=== PATIENT | female | born 1960 | race Caucasian/White ===

== ENCOUNTER 2017-10-30 15:07 | Outpatient (CLI) | payer OTHER, MEDICAID, SELFPAY ==
--- NOTE | 2017-10-30 14:47 | DI.RAD_ITS ---
SYMPTOM/DIAGNOSIS: COUGH, R05 PA AND LATERAL CHEST: Comparison is made with 03/19/09. Heart size and pulmonary vasculature are within normal limits. The lungs are clear and well expanded. No effusions or pneumothoraces are identified. Mild degenerative changes are seen in the spine. The lungs appear hyperinflated suggesting underlying COPD. IMPRESSION: No acute pulmonary process.
== END 2017-10-30 15:27 ==
PROVIDERS: PCP Nurse Practitioner Family; Visit Provider Nurse Practitioner Family
DX: R05 Cough (principal); J44.9 Chronic obstructive pulmonary disease, unspecified
CPT/HCPCS: 71046

== ENCOUNTER 2017-11-13 00:24 | Outpatient (CLI) | payer OTHER, SELFPAY ==
--- NOTE | 2017-11-13 12:47 | DI.CTLCSR_ITS ---
SYMPTOM/DIAGNOSIS: TOBACCO USE, F17.[address]: Noncontrast CT scan of the chest was performed according to the lung cancer screening protocol. There is atherosclerosis of the thoracic aorta but no aneurysmal dilatation is present. Heart size is within normal limits. No significant pericardial effusion is seen. Coronary artery calcifications are identified. No significant mediastinal or hilar adenopathy is present on this noncontrast examination. No pleural effusion or pneumothorax is identified. There is scarring seen in the lungs bilaterally. No non calcified pulmonary nodules are seen. Tracheobronchial tree is unremarkable. Degenerative changes are seen in the spine. There is a compression deformity of the superior endplate of T 6. This was not apparent on the chest xray from 10/30/17. There does appear to be loss of approximately 10-15% of the height of the vertebral body noted. No central spinal canal stenosis is seen. IMPRESSION: 1. No evidence of a pulmonary nodule. Category 1. 2. Compression deformity of the T 6 vertebral body not present on the chest xray from 10/30/17. No central spinal canal stenosis is seen.
== END 2017-11-13 00:44 ==
PROVIDERS: PCP Nurse Practitioner Family; Visit Provider Nurse Practitioner Family
DX: M48.54XD Collapsed vertebra, not elsewhere classified, thoracic region, subsequent encounter for fracture with routine healing (principal); Z12.2 Encounter for screening for malignant neoplasm of respiratory organs; F17.200 Nicotine dependence, unspecified, uncomplicated
CPT/HCPCS: G0297

== ENCOUNTER 2018-01-08 10:30 | Emergency (ER) | payer OTHER, SELFPAY ==
[2018-01-08 10:33] VITALS: BP 189/99; PULSE 71; RESP 16; TEMP 36.6; O2SAT 96
--- NOTE | 2018-01-08 10:36 | W.ED.GENAD ---
Discharge Plan Disposition Patient Disposition: HOME Condition: Good Discharge Details Chief Complaint: Chest/Rib Clinical Impression: Contusion of rib on right side Primary Care Provider: Lili Oglesby ED Provider: Chu Hollingsworth Home Meds and New Rx's Prescriptions: Continue levalbuterol HCl 1.25 MG/3 ML solution for nebulization 1.25 mg Inhalation PRN PRNRF: 0 citalopram 20 MG tablet 20 mg PO DAILY RF: 0 aspirin [Aspir-81] 81 MG tablet,delayed release (DR/EC) 81 mg PO DAILY RF: 0 bupropion HCl [Wellbutrin] 100 MG tablet 100 mg PO BID RF: 0 lisinopril 10 MG tablet 10 mg PO DAILY RF: 0 kolmyadq-poa-xkeht acid-vit K [Multi For Her 50 Plus] 400-80 mcg Capsule 1 tab PO DAILY RF: 0 Discharge Instructions Instructions: Rib Contusion (ED) Additional Instructions: you can take 1000mg tylenol and 600mg ibuprofen every 6 hours for pain as needed your blood pressure today was high, this can be due to pain. You should have this rechecked with your primary care provider within 2 weeks if you have severe worsening pain or difficulty breathing return to the emergency department Discharge Data Discharge Date/Time-TO BE ENTERED AT DEPARTURE: 01/08/18 10:59 Medical Decision Making 57 yo female states this past Monday her was playing with their dog and threw a ball, and this caused the dog to run into the patient's right sided chest. HAs had some pain since so came here. Denies pain with exertion or sob. Has locazlies tenderness over 4-5th ribs in mid clavicular line with no palpable deformities, speaking in full sentences with clear lungs. Doubt ptx, suspect contusion vs fx though suspect more likely this fx. offered an xray but she declined, will have her start ibuprofen and tylenol and return precautions given. Has no abdominal tenderness so doubt entities such as liver laceration or other serious intrabdominal pathology or traumatic injury Differential Diagnosis contusion, fx HPI General Mode of arrival: ambulatory. Date/Time Provider Initiated Documentation: 01/08/18 10:36. Limitations to Documentation: no limitations. Information obtained by: patient. History of Present Illness 57 year old F presents to the emergency department with the chief complaint of right sided chest pain, described as moderate, with intensity rated at 5. Quality is described as aching, and is localized to the chest. Patient reports no radiation. Patient started experiencing this day(s) (3) and it has been constant. No relieving factors improve symptom(s), Other factors that worsen symptoms (deep breaths) . Patient notes no other symptoms.. Patient did receive the following treatments prior to arrival, none Related Data Home Medications Medication Instructions Recorded Confirmed levalbuterol HCl 1.25 mg INHALATION PRN PRN NS 08/27/12 01/08/18 citalopram 20 mg PO DAILY 09/11/12 01/08/18 aspirin [Aspir-81] 81 mg PO DAILY 11/28/14 01/08/18 bupropion HCl [Wellbutrin] 100 mg PO BID 11/28/14 01/08/18 lisinopril 10 mg PO DAILY 11/28/14 01/08/18 ednyowvb-roi-dgxgc acid-vit K 1 tab PO DAILY 01/08/18 01/08/18 [Multi For Her 50 Plus] Allergies Allergy/AdvReac Type Severity Reaction Status Date / Time erythromycin base AdvReac Unverified 01/08/18 10:36 General Stated Complaint: Chest/Rib HEATH: 4 Review of Systems Review of Systems All systems reviewed & are unremarkable except as noted in HPI and below Constitutional Denies chills, Denies fever(s) and Denies weakness ENT Denies change in voice Cardiovascular Denies dyspnea Respiratory Denies dyspnea Gastrointestinal Denies abdominal pain, Denies nausea and Denies vomiting Musculoskeletal Denies joint swelling Integumentary/Breasts Denies rash Neurologic Denies weakness Endocrine Denies cold intolerance and Denies heat intolerance [facility] Social History Smoking/Tobacco Use Status: Current every day Social History Smoking/Tobacco Use Status: Current every day Exam Const General: no acute distress Orientation: alert HENNE Head: normal to inspection Ears: external ears normal General nose exam: external nose normal Mouth: moist mucous membranes Eyes General: appearance normal, both eyes and all related structures Neck Neck: normal visual inspection Chest Chest: normal inspection of the chest, normal palpation of entire chest wall and no crepitus Resp Effort & Inspection: normal respiratory effort and able to speak in complete sentences Cardio Rate: regular rate Skin General skin exam: no rashes or lesions noted Neuro General: alert and oriented x3 Extrem General: normal to inspection Psych Mental Status: mental status grossly normal Course Vital Signs Temperature 36.6 C 01/08/18 10:33 Pulse 71 01/08/18 10:33 Respiratory Rate 16 01/08/18 10:33 Blood Pressure 189/99 H 01/08/18 10:33 Pulse Oximetry 96 01/08/18 10:33 Temperature 36.6 C 01/08/18 10:33 Temperature Source Temporal Artery Scan 01/08/18 10:33 Pulse 71 01/08/18 10:33 Respiratory Rate 16 01/08/18 10:33 Respiratory Effort Non-Labored 01/08/18 10:35 Blood Pressure 189/99 H 01/08/18 10:33 Blood Pressure Position Sitting 01/08/18 10:33 Pulse Oximetry 96 01/08/18 10:33 Oxygen Delivery Method Room Air 01/08/18 10:33 Oxygen Flow Rate 0 01/08/18 10:33 Pain Level 8 01/08/18 10:33
--- NOTE | 2018-01-08 10:47 | ED.GENADUL_ITS ---
Discharge Plan Disposition Patient Disposition: HOME Condition: Good Discharge Details Chief Complaint: Chest/Rib Clinical Impression: Contusion of rib on right side Primary Care Provider: Lili Oglesby ED Provider: Chu Hollingsworth Home Meds and New Rx's Prescriptions: Continue levalbuterol HCl 1.25 MG/3 ML solution for nebulization 1.25 mg Inhalation PRN PRNRF: 0 citalopram 20 MG tablet 20 mg PO DAILY RF: 0 aspirin [Aspir-81] 81 MG tablet,delayed release (DR/EC) 81 mg PO DAILY RF: 0 bupropion HCl [Wellbutrin] 100 MG tablet 100 mg PO BID RF: 0 lisinopril 10 MG tablet 10 mg PO DAILY RF: 0 ktajngip-xez-weavk acid-vit K [Multi For Her 50 Plus] 400-80 mcg Capsule 1 tab PO DAILY RF: 0 Discharge Instructions Instructions: Rib Contusion (ED) Additional Instructions: you can take 1000mg tylenol and 600mg ibuprofen every 6 hours for pain as needed your blood pressure today was high, this can be due to pain. You should have this rechecked with your primary care provider within 2 weeks if you have severe worsening pain or difficulty breathing return to the emergency department Discharge Data Discharge Date/Time-TO BE ENTERED AT DEPARTURE: 01/08/18 10:59 Medical Decision Making 57 yo female states this past Monday her was playing with their dog and threw a ball, and this caused the dog to run into the patient's right sided chest. HAs had some pain since so came here. Denies pain with exertion or sob. Has locazlies tenderness over 4-5th ribs in mid clavicular line with no palpable deformities, speaking in full sentences with clear lungs. Doubt ptx, suspect contusion vs fx though suspect more likely this fx. offered an xray but she declined, will have her start ibuprofen and tylenol and return precautions given. Has no abdominal tenderness so doubt entities such as liver laceration or other serious intrabdominal pathology or traumatic injury Differential Diagnosis contusion, fx HPI General Mode of arrival: ambulatory . Date/Time Provider Initiated Documentation: 01/08/18 10:36 . Limitations to Documentation: no limitations . Information obtained by: patient . History of Present Illness 57 year old F presents to the emergency department with the chief complaint of right sided chest pain, described as moderate, with intensity rated at 5. Quality is described as aching, and is localized to the chest. Patient reports no radiation. Patient started experiencing this day(s) (3) and it has been constant. No relieving factors improve symptom(s), Other factors that worsen symptoms (deep breaths) . Patient notes no other symptoms.. Patient did receive the following treatments prior to arrival, none Related Data Home Medications Medication Instructions Recorded Confirmed levalbuterol HCl 1.25 mg INHALATION PRN PRN NS 08/27/12 01/08/18 citalopram 20 mg PO DAILY 09/11/12 01/08/18 aspirin [Aspir-81] 81 mg PO DAILY 11/28/14 01/08/18 bupropion HCl [Wellbutrin] 100 mg PO BID 11/28/14 01/08/18 lisinopril 10 mg PO DAILY 11/28/14 01/08/18 wpjuajmm-ath-qvbml acid-vit K 1 tab PO DAILY 01/08/18 01/08/18 [Multi For Her 50 Plus] Allergies Allergy/AdvReac Type Severity Reaction Status Date / Time erythromycin base AdvReac Unverified 01/08/18 10:36 General Stated Complaint: Chest/Rib HEATH: 4 Review of Systems Review of Systems All systems reviewed & are unremarkable except as noted in HPI and below Constitutional Denies chills, Denies fever(s) and Denies weakness ENT Denies change in voice Cardiovascular Denies dyspnea Respiratory Denies dyspnea Gastrointestinal Denies abdominal pain, Denies nausea and Denies vomiting Musculoskeletal Denies joint swelling Integumentary/Breasts Denies rash Neurologic Denies weakness Endocrine Denies cold intolerance and Denies heat intolerance [facility] Social History Smoking/Tobacco Use Status: Current every day Social History Smoking/Tobacco Use Status: Current every day Exam Const General: no acute distress Orientation: alert HENNV Head: normal to inspection Ears: external ears normal General nose exam: external nose normal Mouth: moist mucous membranes Eyes General: appearance normal, both eyes and all related structures Neck Neck: normal visual inspection Chest Chest: normal inspection of the chest, normal palpation of entire chest wall and no crepitus Resp Effort & Inspection: normal respiratory effort and able to speak in complete sentences Cardio Rate: regular rate Skin General skin exam: no rashes or lesions noted Neuro General: alert and oriented x3 Extrem General: normal to inspection Psych Mental Status: mental status grossly normal Course Vital Signs Temperature 36.6 C 01/08/18 10:33 Pulse 71 01/08/18 10:33 Respiratory Rate 16 01/08/18 10:33 Blood Pressure 189/99 H 01/08/18 10:33 Pulse Oximetry 96 01/08/18 10:33 Temperature 36.6 C 01/08/18 10:33 Temperature Source Temporal Artery Scan 01/08/18 10:33 Pulse 71 01/08/18 10:33 Respiratory Rate 16 01/08/18 10:33 Respiratory Effort Non-Labored 01/08/18 10:35 Blood Pressure 189/99 H 01/08/18 10:33 Blood Pressure Position Sitting 01/08/18 10:33 Pulse Oximetry 96 01/08/18 10:33 Oxygen Delivery Method Room Air 01/08/18 10:33 Oxygen Flow Rate 0 01/08/18 10:33 Pain Level 8 01/08/18 10:33
[2018-01-08 10:57] VITALS: BP 137/90
== END 2018-01-08 10:59 | disposition home or self-care (01) ==
LOC: ER 12:15
PROVIDERS: Emergency Provider Emergency Medicine; PCP Nurse Practitioner Family
DX: S20.211A Contusion of right front wall of thorax, initial encounter (principal); W54.1XXA Struck by dog, initial encounter
CPT/HCPCS: 99282

== ENCOUNTER 2018-03-01 11:59 | Emergency (ER) | payer OTHER, SELFPAY ==
[2018-03-01 12:02] VITALS: BP 175/108; PULSE 67; RESP 18; TEMP 36.7; O2SAT 99
--- NOTE | 2018-03-01 12:39 | DI.RAD_ITS ---
SYMPTOMS/DIAGNOSIS: LEFT-SIDED POSTEROLATERAL RIB PAIN S/P SLIP AND FALL, SHORTNESS OF BREATH WITH DEEP INSPIRATION PA AND LATERAL CHEST AND LEFT RIBS: PA AND LATERAL CHEST: The heart is normal in size. The lungs are clear. The mediastinal structures and pleura appear intact. SUMMARY: Normal chest. LEFT RIB SERIES: No rib fracture is defined.
--- NOTE | 2018-03-01 12:40 | W.ED.GENAD ---
Discharge Plan Disposition Patient Disposition: HOME Condition: Fair Discharge Details Chief Complaint: Orthopedic Clinical Impression: Contusion of rib Primary Care Provider: Lili Oglesby ED Provider: Bre Cason Home Meds and New Rx's Prescriptions: New lidocaine [Lidoderm] 5 % adhesive patch,medicated 1 patch TP DAILY Qty: 15 RF: 0 Continued levalbuterol HCl 1.25 MG/3 ML solution for nebulization 1.25 mg Inhalation PRN PRNRF: 0 citalopram 20 MG tablet 20 mg PO DAILY RF: 0 aspirin [Aspir-81] 81 MG tablet,delayed release (DR/EC) 81 mg PO DAILY RF: 0 bupropion HCl [Wellbutrin] 100 MG tablet 100 mg PO BID RF: 0 lisinopril 10 MG tablet 10 mg PO DAILY RF: 0 dfhxlqtx-zju-vjbsp acid-vit K [Multi For Her 50 Plus] 400-80 mcg Capsule 1 tab PO DAILY RF: 0 Discharge Instructions Instructions: Rib Contusion (ED) Additional Instructions: Encourage hydration. Tylenol and/or ibuprofen as needed for discomfort. Lidocaine patches may help with discomfort. May try splinting as discussed if you need to cough. Incentive spirometer as advised by nursing staff to help prevent pneumonia and encourage deep breathing. If you develop shortness of breath, difficulty breathing, fever/chills or other new/worsening symptoms please seek care urgently once again. If pain is not improving over the next week please follow-up with primary care Stand Alone Forms: Work Release Referrals: Lili Oglesby [Primary Care Provider] - Discharge Data Discharge Date/Time-TO BE ENTERED AT DEPARTURE: 03/01/18 15:25 Medical Decision Making Patient 57-year-old female presenting today with chief complaint of left-sided rib pain. She reports that around 930 this morning, she slipped on icy steps and fell striking left side of her chest. States that she then slid down some steps and did strike the posterior aspect of her head. States that initially she was dazed. Denies any headache. No nausea or vomiting, no visual changes. Denies any pain in the neck or back. Is concerned she may have suffered broken ribs. On exam, no palpable head abnormalities, no fractures, hall signs or raccoon eyes. Full range of motion of the neck with no midline tenderness. No pain over the spine. Neuro exam is intact. Patient is focally tender over the left side of the posterior lateral ribs with focal area of swelling. Lungs are clear, no respiratory distress. Will obtain chest x-ray to evaluate for possible fracture. She has not had anything as of yet today for discomfort, will give Tylenol, ibuprofen and Lidoderm patch. Discussed this plan with the patient was in agreement. Consulted with radiologist who advised no displaced fracture, no pneumothorax, Discussed finding with patient. Advised likely contusion. 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 However, at this point, as patient is breathing comfortably, moving air well no respiratory distress and no abnormalities of the chest x-ray, I do not believe further imaging is warranted at this time. I encourage deep breathing, insulin was given to the patient teaching was completed by nursing staff. Patient's discomfort was treated with ibuprofen, Tylenol and Lidoderm patch. We discussed continued [id number] home remedies that may help with discomfort. She is given strict return precautions. Advised that she fell at her primary care next week if not improving. All of her questions and concerns were addressed and she is in agreement this plan. [facility] General Mode of arrival: ambulatory. Date/Time Provider Initiated Documentation: 03/01/18 12:39. Limitations to Documentation: no limitations. Information obtained by: patient and family. History of Present Illness 57 year old F presents to the emergency department with the chief complaint of left sided chest wall pain, described as moderate, with intensity rated at 9. Quality is described as aching, and is localized to the back. Patient reports no radiation. Patient started experiencing this hour(s) and it has been constant. Immobilization improves symptom(s), Movement worsens symptoms and Other factors that worsen symptoms (deep breath, coughing) . Patient notes denies chest pain, cough, fever/chills, loss of appetite, nausea/vomiting, rash and shortness of breath. Related Data Home Medications Medication Instructions Recorded Confirmed levalbuterol HCl 1.25 mg INHALATION PRN PRN NS 08/27/12 01/08/18 citalopram 20 mg PO DAILY 09/11/12 01/08/18 aspirin [Aspir-81] 81 mg PO DAILY 11/28/14 01/08/18 bupropion HCl [Wellbutrin] 100 mg PO BID 11/28/14 01/08/18 lisinopril 10 mg PO DAILY 11/28/14 01/08/18 crjpokap-fgf-jimqp acid-vit K 1 tab PO DAILY 01/08/18 01/08/18 [Multi For Her 50 Plus] lidocaine [Lidoderm] 1 patch TP DAILY #15 each 03/01/18 Previous Rx's Medication Instructions Recorded lidocaine [Lidoderm] 1 patch TP DAILY #15 each 03/01/18 Allergies Allergy/AdvReac Type Severity Reaction Status Date / Time erythromycin base AdvReac Unverified 01/08/18 10:36 General Stated Complaint: Orthopedic HEATH: 4 Review of Systems Constitutional Reports as per HPI, Denies chills, Denies fever(s), Denies headache(s) and Denies weakness ENT Denies headache(s) Cardiovascular Reports as per HPI, Denies dyspnea and Denies dyspnea on exertion Respiratory Reports as per HPI, Denies cough, Reports pain on inspiration, Reports pain with cough, Denies dyspnea, Denies dyspnea on exertion, Denies stridor and Denies wheezing Gastrointestinal Reports as per HPI, Denies abdominal pain, Denies nausea and Denies vomiting Musculoskeletal Reports as per HPI and Denies tingling Integumentary/Breasts Reports as per HPI, Denies rash and Denies wounds Neurologic Denies headache(s), Denies tingling and Denies weakness Allergic/Immunologic Denies wheezing [facility] Social History Smoking/Tobacco Use Status: Current every day Exam Const General: cooperative, healthy appearing, comfortable, no acute distress, well developed and well groomed Nutritional Appearance: average body habitus and well nourished Orientation: alert and awake Chest Chest: abnormal palpation of chest wall (area of swelling noted to left side of chest, area of maximal discomfortr), no crepitus, no localized rib tenderness, tenderness rib (posterior left lateral #6 rib) and No rash Resp Effort & Inspection: normal respiratory effort, able to speak in complete sentences and no respiratory distress Auscultation: clear to auscultation bilaterally, no rales, no rhonchi and no wheezes Cardio Rate: regular rate Rhythm: regular rhythm Heart Sounds: S1 normal and S2 normal Back/Spine/Pelvis Back: no CVA tenderness Cervical Spine: normal cervical lordosis and cervical ROM normal Thoracic/Lumbar Spine: thoracic and lumbar spine normal to inspection, thoraco-lumbar ROM normal, No thoracic spinal tenderness and No lumbar spinal tenderness Skin General skin exam: no rashes or lesions noted Lesions: no lesions Rashes: no rashes Trauma: no lacerations or abrasions Neuro General: alert and awake Cognition: normal cognition Speech: speech normal Gait: normal gait Motor: muscle tone normal throughout Sensory Exam: no sensory deficits noted Psych Appearance: grossly normal and well kempt Mental Status: mental status grossly normal Speech and Movement: speech and movement normal Course Vital Signs Temperature 36.7 C 03/01/18 12:02 Pulse 67 03/01/18 12:02 Respiratory Rate 18 03/01/18 12:02 Blood Pressure 175/108 H 03/01/18 12:02 Pulse Oximetry 99 03/01/18 12:02 Temperature 36.7 C 03/01/18 12:02 Temperature Source Temporal Artery Scan 03/01/18 12:02 Pulse 67 03/01/18 12:02 Respiratory Rate 18 03/01/18 12:02 Respiratory Effort Non-Labored 03/01/18 12:05 Blood Pressure 175/108 H 03/01/18 12:02 Pulse Oximetry 99 03/01/18 12:02 Oxygen Delivery Method Room Air 03/01/18 12:02 Oxygen Flow Rate 0 03/01/18 12:02 Pain Level 9 03/01/18 12:02 Comment 03/01/18 12:02
--- NOTE | 2018-03-01 13:06 | ED.GENADUL_ITS ---
Discharge Plan Disposition Patient Disposition: HOME Condition: Fair Discharge Details Chief Complaint: Orthopedic Clinical Impression: Contusion of rib Primary Care Provider: Lili Oglesby ED Provider: Bre Cason Home Meds and New Rx's Prescriptions: New lidocaine [Lidoderm] 5 % adhesive patch,medicated 1 patch TP DAILY Qty: 15 RF: 0 Continued levalbuterol HCl 1.25 MG/3 ML solution for nebulization 1.25 mg Inhalation PRN PRNRF: 0 citalopram 20 MG tablet 20 mg PO DAILY RF: 0 aspirin [Aspir-81] 81 MG tablet,delayed release (DR/EC) 81 mg PO DAILY RF: 0 bupropion HCl [Wellbutrin] 100 MG tablet 100 mg PO BID RF: 0 lisinopril 10 MG tablet 10 mg PO DAILY RF: 0 [id number] acid-vit K [Multi For Her 50 Plus] 400-80 mcg Capsule 1 tab PO DAILY RF: 0 Discharge Instructions Instructions: Rib Contusion (ED) Additional Instructions: Encourage hydration. Tylenol and/or ibuprofen as needed for discomfort. Lidocaine patches may help with discomfort. May try splinting as discussed if you need to cough. Incentive spirometer as advised by nursing staff to help prevent pneumonia and encourage deep breathing. If you develop shortness of breath, difficulty breathing, fever/chills or other new/worsening symptoms please seek care urgently once again. If pain is not improving over the next week please follow-up with primary care Stand Alone Forms: Work Release Referrals: Lili Oglesby [Primary Care Provider] - Discharge Data Discharge Date/Time-TO BE ENTERED AT DEPARTURE: 03/01/18 15:25 Medical Decision Making Patient 57-year-old female presenting today with chief complaint of left-sided rib pain. She reports that around 930 this morning, she slipped on icy steps and fell striking left side of her chest. States that she then slid down some steps and did strike the posterior aspect of her head. States that initially she was dazed. Denies any headache. No nausea or vomiting, no visual changes. Denies any pain in the neck or back. Is concerned she may have suffered broken ribs. On exam, no palpable head abnormalities, no fractures, hall signs or raccoon eyes. Full range of motion of the neck with no midline tenderness. No pain over the spine. Neuro exam is intact. Patient is focally tender over the left side of the posterior lateral ribs with focal area of swelling. Lungs are clear, no respiratory distress. Will obtain chest x-ray to evaluate for possible fracture. She has not had anything as of yet today for discomfort, will give Tylenol, ibuprofen and Lidoderm patch. Discussed this plan with the patient was in agreement. Consulted with radiologist who advised no displaced fracture, no pneumothorax, Discussed finding with patient. Advised likely contusion. I did advise that she may have a small nondisplaced fracture is difficult to supervisor opening and picking. However, at this point, as patient is breathing comfortably, moving air well no respiratory distress and no abnormalities of the chest x-ray, I do not believe further imaging is warranted at this time. I encourage deep breathing, insulin was given to the patient teaching was completed by nursing staff. Patient's discomfort was treated with ibuprofen, Tylenol and Lidoderm patch. We discussed continued [id number] home remedies that may help with discomfort. She is given strict return precautions. Advised that she fell at her primary care next week if not improving. All of her questions and concerns were addressed and she is in agreement this plan. [facility] General Mode of arrival: ambulatory . Date/Time Provider Initiated Documentation: 03/01/18 12:39 . Limitations to Documentation: no limitations . Information obtained by: patient and family . History of Present Illness 57 year old F presents to the emergency department with the chief complaint of left sided chest wall pain, described as moderate, with intensity rated at 9. Quality is described as aching, and is localized to the back. Patient reports no radiation. Patient started experiencing this hour(s) and it has b een constant. Immobilization improves symptom(s), Movement worsens symptoms and Other factors that worsen symptoms (deep breath, coughing) . Patient notes denies chest pain, cough, fever/chills, loss of appetite, nausea/vomiting, rash and shortness of breath. Related Data Home Medications Medication Instructions Recorded Confirmed levalbuterol HCl 1.25 mg INHALATION PRN PRN NS 08/27/12 01/08/18 citalopram 20 mg PO DAILY 09/11/12 01/08/18 aspirin [Aspir-81] 81 mg PO DAILY 11/28/14 01/08/18 bupropion HCl [Wellbutrin] 100 mg PO BID 11/28/14 01/08/18 lisinopril 10 mg PO DAILY 11/28/14 01/08/18 [id number] acid-vit K 1 tab PO DAILY 01/08/18 01/08/18 [Multi For Her 50 Plus] lidocaine [Lidoderm] 1 patch TP DAILY #15 each 03/01/18 Previous Rx's Medication Instructions Recorded lidocaine [Lidoderm] 1 patch TP DAILY #15 each 03/01/18 Allergies Allergy/AdvReac Type Severity Reaction Status Date / Time erythromycin base AdvReac Unverified 01/08/18 10:36 General Stated Complaint: Orthopedic HEATH: 4 Review of Systems Constitutional Reports as per HPI, Denies chills, Denies fever(s), Denies headache(s) and Denies weakness ENT Denies headache(s) Cardiovascular Reports as per HPI, Denies dyspnea and Denies dyspnea on exertion Respiratory Reports as per HPI, Denies cough, Reports pain on inspiration, Reports pain with cough, Denies dyspnea, Denies dyspnea on exertion, Denies stridor and Denies wheezing Gastrointestinal Reports as per HPI, Denies abdominal pain, Denies nausea and Denies vomiting Musculoskeletal Reports as per HPI and Denies tingling Integumentary/Breasts Reports as per HPI, Denies rash and Denies wounds Neurologic Denies headache(s), Denies tingling and Denies weakness Allergic/Immunologic Denies wheezing [facility] Social History Smoking/Tobacco Use Status: Current every day Exam Const General: cooperative, healthy appearing, comfortable, no acute distress, well developed and well groomed Nutritional Appearance: average body habitus and well nourished Orientation: alert and awake Chest Chest: abnormal palpation of chest wall (area of swelling noted to left side of chest, area of maximal discomfortr), no crepitus, no localized rib tenderness, tenderness rib (posterior left lateral #6 rib) and No rash Resp Effort & Inspection: normal respiratory effort, able to speak in complete sentences and no respiratory distress Auscultation: clear to auscultation bilaterally, no rales, no rhonchi and no wheezes Cardio Rate: regular rate Rhythm: regular rhythm Heart Sounds: S1 normal and S2 normal Back/Spine/Pelvis Back: no CVA tenderness Cervical Spine: normal cervical lordosis and cervical ROM normal Thoracic/Lumbar Spine: thoracic and lumbar spine normal to inspection, thoraco- lumbar ROM normal, No thoracic spinal tenderness and No lumbar spinal tenderness Skin General skin exam: no rashes or lesions noted Lesions: no lesions Rashes: no rashes Trauma: no lacerations or abrasions Neuro General: alert and awake Cognition: normal cognition Speech: speech normal Gait: normal gait Motor: muscle tone normal throughout Sensory Exam: no sensory deficits noted Psych Appearance: grossly normal and well kempt Mental Status: mental status grossly normal Speech and Movement: speech and movement normal Course Vital Signs Temperature 36.7 C 03/01/18 12:02 Pulse 67 03/01/18 12:02 Respiratory Rate 18 03/01/18 12:02 Blood Pressure 175/108 H 03/01/18 12:02 Pulse Oximetry 99 03/01/18 12:02 Temperature 36.7 C 03/01/18 12:02 Temperature Source Temporal Artery Scan 03/01/18 12:02 Pulse 67 03/01/18 12:02 Respiratory Rate 18 03/01/18 12:02 Respiratory Effort Non-Labored 03/01/18 12:05 Blood Pressure 175/108 H 03/01/18 12:02 Pulse Oximetry 99 03/01/18 12:02 Oxygen Delivery Method Room Air 03/01/18 12:02 Oxygen Flow Rate 0 03/01/18 12:02 Pain Level 9 03/01/18 12:02 Comment 03/01/18 12:02
[2018-03-01] MEDS: Lidocaine 5% Patch 1 PATCH TP (13:27)
[2018-03-01] MEDS: Acetaminophen 500 MG TAB 1000 MG PO (13:33)
[2018-03-01] MEDS: Ibuprofen 600 MG TAB PO (13:34)
[2018-03-01 14:50] VITALS: BP 175/108; PULSE 67; RESP 18; TEMP 36.7; O2SAT 99
== END 2018-03-01 15:25 | disposition home or self-care (01) ==
PROVIDERS: Emergency Provider Physician Assistant; PCP Nurse Practitioner Family
DX: S20.222A Contusion of left back wall of thorax, initial encounter (principal); S09.90XA Unspecified injury of head, initial encounter; W00.1XXA Fall from stairs and steps due to ice and snow, initial encounter; I10 Essential (primary) hypertension
CPT/HCPCS: 99283; 71046; 71100

== ENCOUNTER 2018-10-23 16:04 | Outpatient (REF) | payer OTHER, SELFPAY ==
[2018-10-23 18:44] LABS: Anion Gap 12.2 mmol/L (3-11); BUN 16 mg/dL (7-18); CO2 26.8 mmol/L (21.0-32.0); CREATININE 0.87 mg/dL (0.55-1.02); Calcium 10.2 mg/dL (8.5-10.1); Chloride 103 mmol/L (98-107); Glucose 92 mg/dL (70-100); Potassium 3.7 mmol/L (3.5-5.1); Sodium 142 mmol/L (136-145)
== END 2018-10-23 16:24 ==
LOC: NCHCN 16:04
PROVIDERS: PCP Nurse Practitioner Family; Visit Provider Nurse Practitioner Family
DX: E78.5 Hyperlipidemia, unspecified (principal); Z00.00 Encounter for general adult medical examination without abnormal findings; I10 Essential (primary) hypertension
CPT/HCPCS: 80048

== ENCOUNTER 2018-11-01 16:10 | Outpatient (REF) | payer OTHER, SELFPAY ==
--- NOTE | 2018-11-01 16:15 | PAPFT_PTH ---
PATIENT: Nichole Heller [id number] AGE/SX: 57/F ROOM: RE11/01/[address]: Jordan Bolanos : 1960 BED: DIS: 11/01/2018 SPEC #: [id number] RECD: 11/01/18 18:17 STATUS: OLGA REQ #: [id number] LILI: 11/01/18 16:[address]: Jordan Bolanos DEPT: [facility] Cytology RECD BY: Diana Akhtar ENTERED: 11/01/18 18:17 SP TYPE: PAPFT OTHR DR: Lili Oglesby Tissues: 1 - CX/ENDOCX FOR PAP SMEARS Procedures: PAP THIN PREP/UVM Screening HPV DNA PROBE Comments: [id number]
== END 2018-11-01 16:30 ==
LOC: NCHCN 16:10
PROVIDERS: PCP Nurse Practitioner Family; Visit Provider Nurse Practitioner Family
DX: Z12.4 Encounter for screening for malignant neoplasm of cervix (principal); Z11.51 Encounter for screening for human papillomavirus (HPV); Z00.00 Encounter for general adult medical examination without abnormal findings
CPT/HCPCS: 88142; 87624

== ENCOUNTER 2019-08-23 16:24 | Outpatient (CLI) | payer OTHER, SELFPAY ==
--- NOTE | 2019-08-23 16:05 | DI.RAD_ITS ---
EXAM: XR CHEST 2V PA LATERAL CLINICAL HISTORY: COUGH, R05 TECHNIQUE: COMPARISON: CR XR ribs LT w PA lat chest from 03/01/2018 FINDINGS: Heart is not enlarged. Note is made of old healed left rib fractures. The lungs are clear. No pleu ral effusion seen. There may be mild pulmonary hyperinflation. IMPRESSION: No evidence of acute process.
== END 2019-08-23 16:44 ==
PROVIDERS: PCP Nurse Practitioner Family; Visit Provider Nurse Practitioner Family
DX: R05 Cough (principal)
CPT/HCPCS: 71046

== ENCOUNTER 2019-08-23 19:42 | Outpatient (REF) | payer OTHER, SELFPAY ==
[2019-08-30 15:17] LABS: SARS-CoV-2 RNA Undetected (Undetected); SARS-CoV-2 Specimen Source Nasopharynx
== END 2019-08-23 20:02 ==
LOC: NCHCN 19:42
PROVIDERS: PCP Nurse Practitioner Family; Visit Provider Nurse Practitioner Family
DX: Z11.59 Encounter for screening for other viral diseases (principal); R05 Cough
CPT/HCPCS: U0003

== ENCOUNTER 2019-09-16 07:33 | Outpatient (CLI) | payer OTHER, SELFPAY ==
[2019-09-17 14:52] LABS: COVID-19 RT-PCR Result NEGATIVE (Negative)
== END 2019-09-16 07:53 ==
PROVIDERS: PCP Nurse Practitioner Family; Visit Provider Family Medicine
DX: Z11.59 Encounter for screening for other viral diseases (principal); Z01.818 Encounter for other preprocedural examination
CPT/HCPCS: U0003

== ENCOUNTER 2019-09-19 03:35 | Outpatient (CLI) | payer OTHER, SELFPAY ==
[2019-09-19] MEDS: Methacholine 100 MG VIAL IH (14:58)
[2019-09-19] MEDS: Albuterol HFA 18 GM 200 PUFF INH IH (14:58)
[2019-09-19] MEDS: Inhaler, Assist Device 1 EACH MC (14:59)
--- NOTE | 2019-09-23 14:33 | W.PFT ---
Date of service: 09/19/19 Time of Service: 01:08 Pulmonary Function Test Result Interpretation Spirometry: Shows no evidence of obstructive airways disease no bronchodilator response Lung Volumes: no evidence of restriction Diffusion Capacity: Normal Airway Pressure: Normal Impression Normal pulmonary function study, clinical correlation recommended Clinical Correlation therefore is recommended. Methacholine Challnege Test Date of Service Date of Service: 09/19/2019 Note After normal pulmonary function study methacholine challenge testing was carried out up to methacholine concentration of 0.5 mg/mL at which point the patient had a 39% drop in FEV1. Impression Very strongly positive methacholine challenge test. Clinical correlation recommended
== END 2019-09-19 03:55 ==
PROVIDERS: PCP Nurse Practitioner Family; Visit Provider Nurse Practitioner Family
DX: J44.9 Chronic obstructive pulmonary disease, unspecified (principal); R94.2 Abnormal results of pulmonary function studies
CPT/HCPCS: 94060; 94726; 94729; 95070; 94010; J7674

== ENCOUNTER 2021-01-11 22:26 | Outpatient (REF) | payer OTHER, SELFPAY ==
[2021-01-11 22:51] LABS: ALT 36 U/L (14-59); AST 27 U/L (15-37); Albumin 4.2 g/dL (3.4-5.0); Alkaline Phosphatase 76 U/L (46-116); Anion Gap 10.5 mmol/L (3-11); BUN 19 mg/dL (7-18); Bilirubin, Total 0.3 mg/dL (0.2-1.0); CO2 27.5 mmol/L (21.0-32.0); CREATININE 0.8 mg/dL (0.55-1.02); Calcium 10.2 mg/dL (8.5-10.1); Calculated LDL 128 mg/dL (<100); Chloride 101 mmol/L (98-107); Cholesterol 249 mg/dL (<200); Glucose 88 mg/dL (74-106); HDL Cholesterol 100 mg/dL (40-60); Potassium 3.8 mmol/L (3.5-5.1); Sodium 139 mmol/L (136-145); Total Protein 7.3 g/dL (6.4-8.2); Triglyceride 109 mg/dL (<150)
== END 2021-01-11 22:27 | disposition home or self-care (01) ==
LOC: NCHCN 22:26
PROVIDERS: PCP Nurse Practitioner Family; Visit Provider Nurse Practitioner
DX: I10 Essential (primary) hypertension (principal); J44.9 Chronic obstructive pulmonary disease, unspecified; Z13.220 Encounter for screening for lipoid disorders
CPT/HCPCS: 80053; 80061

== ENCOUNTER 2021-07-12 12:16 | Outpatient (REF) | payer OTHER, SELFPAY ==
[2021-07-12 15:57] LABS: HCT 39.1 % (36.0-46.0); HGB 13.2 g/dL (11.2-15.7); MCH 31.4 pg (27.0-33.0); MCHC 33.8 % (32.0-36.0); MCV 93 fL (80-95); Platelet Count 222 10^3/uL (130-400); RDW 12.6 % (11.7-14.6); RDW-SD 43.1 fL; WBC 7.65 10^3/uL (4.4-10.8)
[2021-07-12 16:29] LABS: ALT 42 U/L (14-59); AST 32 U/L (15-37); Albumin 4.2 g/dL (3.4-5.0); Alkaline Phosphatase 73 U/L (46-116); Anion Gap 11.1 mmol/L (3-11); BUN 15 mg/dL (7-18); Bilirubin, Total 0.5 mg/dL (0.2-1.0); CO2 26.9 mmol/L (21.0-32.0); CREATININE 0.7 mg/dL (0.55-1.02); Calcium 10.1 mg/dL (8.5-10.1); Chloride 103 mmol/L (98-107); Glucose 87 mg/dL (74-106); Potassium 3.6 mmol/L (3.5-5.1); Sodium 141 mmol/L (136-145); Total Protein 7.2 g/dL (6.4-8.2)
== END 2021-07-12 12:17 | disposition home or self-care (01) ==
LOC: NCHCN 12:16
PROVIDERS: PCP Nurse Practitioner Family; Visit Provider Nurse Practitioner Family
DX: I10 Essential (primary) hypertension (principal); E78.5 Hyperlipidemia, unspecified; F41.8 Other specified anxiety disorders; F17.200 Nicotine dependence, unspecified, uncomplicated; J44.9 Chronic obstructive pulmonary disease, unspecified; Z00.00 Encounter for general adult medical examination without abnormal findings
CPT/HCPCS: 80053; 85027

== ENCOUNTER 2022-09-04 07:46 | Emergency (ER) | payer OTHER, SELFPAY ==
[2022-09-04 07:47] VITALS: BP 167/98; PULSE 82; RESP 18; TEMP 36.5; O2SAT 99
--- NOTE | 2022-09-04 08:42 | W.ED.GENAD ---
Discharge Plan Disposition Patient Disposition: Home Discharge Details Clinical Impression: Rash and nonspecific skin eruption Primary Care Provider: SWAPNA CANCINO ED Provider: Lalit Lynn Home Meds and New Rx's Prescriptions: New doxycycline hyclate 100 mg capsule 100 mg PO BID 10 Days Qty: 20 0RF Continued levalbuterol HCl 1.25 MG/3 ML solution for nebulization 1.25 mg Inhalation PRN PRN citalopram 20 MG tablet 20 mg PO DAILY aspirin [Aspir-81] 81 MG tablet,delayed release (DR/EC) 81 mg PO DAILY bupropion HCl [Wellbutrin] 100 MG tablet 100 mg PO BID lisinopril 10 MG tablet 10 mg PO DAILY Multi For Her 50 Plus 400-80 mcg Capsule 1 tab PO DAILY Discharge Instructions Instructions: Acute Rash (ED) Additional Instructions: At this time your rash is nonspecific. After discussion we have decided to start you on an antibiotic that would cover for tickborne illness but you should still continue to monitor your symptoms and return for new or worsening of your condition otherwise follow-up with your primary care provider for reassessment. Referrals: SWAPNA CANCINO, SHREDDING SPECIALIST [Primary Care Provider] - 5 days Discharge Data Discharge Date/Time-TO BE ENTERED AT DEPARTURE: 09/04/22 10:43 Medical Decision Making Patient presenting to the emergency department for chief complaint of rash. Patient states that 2 days ago she started noticing a rash but for the last week she has had the feeling like she was getting a cold. She stated subjective fever and chills but had no elevated temp when she checked it, severe fatigue and malaise, and headache. Patient denies all other symptoms, denies new medications, states that rash is not painful or itchy and is in multiple locations. Physical exam shows well-appearing nontoxic female with raised red nodules to urticaria on the face, trunk, legs, and arms in a varied pattern and distribution. Rash is not painful, no pruritus or excoriation, no petechiae. Exam is otherwise unremarkable with no mucous membrane involvement. I do not feel that this is consistent with any of the emergent or life-threatening rashes but I do consider possible tickborne atypical erythema migrans, erythema nodosum, urticaria, drug reaction. Given multiple differential diagnosis we will check patient's labs. Vital signs are stable patient is afebrile Review of patient's labs show an overall unremarkable CBC with only abnormality is slightly elevated monocytes, ESR is barely elevated at 33, patient does have slightly low potassium at 3.3 which we will orally replete, patient does have a transaminase with AST 56, ALT of 93, alk phos of 132. Albumin is low at 3.1 otherwise nondiagnostic labs. CMP is slightly elevated at 3.53. While patient does not have thrombocytopenia I am slightly concerned about the transaminase that has not been seen on review of patient's previous labs. Again given multiple diagnosis making it hard to determine exactly what this is discussed with patient risk versus benefit of treatment. After full discussion and still pending send out check labs we will start patient on doxycycline in case this is a atypical tickborne illness. Otherwise patient will continue to monitor symptoms and return for any new or worsening of condition. Referral has been placed for patient to follow-up with primary care provider for reassessment later this week. After discussion of diagnosis and plan of care patient has no further needs, questions, or concerns and states clear understanding to return to the emergency department for any worsening symptoms. This documentation was generated using [employer] dictation system, please disregard any oddities of phrase or misspellings. Lab Data Lab results reviewed: Yes I reviewed the patient's lab results. HPI General Mode of arrival: ambulatory. Date/Time Provider Initiated Documentation: 09/04/22 07:56. Limitations to Documentation: no limitations. Information obtained by: patient and RN notes reviewed. History of Present Illness 61 year old F presents to the emergency department with the chief complaint of rash, described as moderate, Patient started experiencing this week(s) (1) and it has been constant. No relieving factors improve symptom(s), No exacerbating factors reported . Patient notes fever/chills, headaches, malaise and rash. Patient did receive the following treatments prior to arrival, none Related Data Home Medications Medication Instructions Recorded Confirmed levalbuterol HCl 1.25 mg/3 mL 1.25 mg inhalation PRN PRN 08/27/12 09/04/22 solution for nebulization citalopram 20 mg tablet 20 mg PO DAILY 09/11/12 09/04/22 aspirin 81 mg tablet,delayed 81 mg PO DAILY 11/28/14 09/04/22 release (Aspir-) bupropion HCl 100 mg tablet 100 mg PO BID 11/28/14 09/04/22 (Wellbutrin) lisinopril 10 mg tablet 10 mg PO DAILY 11/28/14 09/04/22 rpqfnqhgwcbp-sfzdbtab-rsdsr acid 1 tab PO DAILY 01/08/18 09/04/22 400 mcg-vitamin K 80 mcg capsule (Multi For Her 50 Plus) doxycycline hyclate 100 mg capsule 100 mg PO BID 10 days #20 caps 09/04/22 Previous Rx's Medication Instructions Recorded doxycycline hyclate 100 mg capsule 100 mg PO BID 10 days #20 caps 09/04/22 Allergies Allergy/AdvReac Type Severity Reaction Status Date / Time erythromycin base AdvReac Unverified 09/04/22 07:53 General Stated Complaint: RashLesion HEATH: 4 Review of Systems Constitutional Constitutional: Reports chills, Reports fatigue, Reports fever(s) (Subjective), Reports headache(s), Reports lethargy and Reports malaise ENT Ears, Nose, Mouth, and Throat: Denies dizziness, Reports headache(s), Reports nasal congestion and Denies sore throat Cardiovascular Cardiovascular: Denies chest pain, Denies syncope and Denies dyspnea Respiratory Respiratory: Denies cough and Denies dyspnea Gastrointestinal Gastrointestinal: Denies abdominal pain, Denies diarrhea, Denies nausea and Denies vomiting Musculoskeletal Musculoskeletal: Denies arthralgias and Denies joint swelling Integumentary/Breasts Skin/Breast: Reports as per HPI, Denies lesions, Reports erythema, Reports rash, Denies skin pain, Reports skin swelling, Denies skin ulcer and Denies sores Neurologic Neurologic: Denies confusion, Denies dizziness, Denies syncope and Reports headache(s) Psychiatric Psychiatric: Denies confusion Endocrine Endocrine: Reports fatigue PFSH All Active Problems (Updated 09/04/22 @ 10:18 by Lalit Lynn NP) Rash and nonspecific skin eruption (Acute) Social History Smoking/Tobacco Use Status: Current every day Smoking risk assessment performed?: Yes Alcohol Intake: never Drug use: Never Substance use type: does not use Do you feel safe at home: Yes Do you feel safe in your relationship?: Yes Exam Const General: cooperative, no acute distress and not ill appearing Orientation: alert, awake and oriented x3 HENMT Mouth: oral mucosae normal, lip normal, tongue normal and moist mucous membranes Teeth and gingiva: gingiva normal Throat: posterior oropharynx normal Neck Neck: normal visual inspection, no lymphadenopathy and no meningeal signs Resp Effort & Inspection: normal respiratory effort, able to speak in complete sentences and no respiratory distress Auscultation: clear to auscultation bilaterally Cardio Rate: regular rate Rhythm: regular rhythm Heart Sounds: S1 normal and S2 normal Skin Rashes: rashes noted papules diffuse multiple locations borders raised, color red and surface erythematous; fluctuant not assessed and nontender Neuro General: patient alert, patient awake, patient oriented x3, moves all extremities and no focal motor deficits Sensory Exam: no sensory deficits noted Course Vital Signs Vital signs: Vital Signs Temperature 36.5 C 09/04/22 07:47 Pulse 82 09/04/22 07:47 Respiratory Rate 18 09/04/22 07:47 Blood Pressure 167/98 H 09/04/22 07:47 Pulse Oximetry 99 09/04/22 07:47 Temperature 36.5 C 09/04/22 07:47 Temperature Source Skin 09/04/22 07:47 Pulse 82 09/04/22 07:47 Respiratory Rate 18 09/04/22 07:47 Respiratory Effort Normal 09/04/22 07:54 Blood Pressure 167/98 H 09/04/22 07:47 Blood Pressure Position Sitting 09/04/22 07:47 Pulse Oximetry 99 09/04/22 07:47 Oxygen Delivery Method Room Air 09/04/22 07:47 Oxygen Flow Rate 0 09/04/22 07:47 Pain Level 0 09/04/22 07:47
[2022-09-04 08:53] LABS: Abs Immature Grans 0.01 10^3/uL (0.0-0.06); Absolute Basophil Count 0.03 10^3/uL (0.0-0.2); Absolute Eosinophil Count 0.01 10^3/uL (0.0-0.7); Absolute Lymphocyte Count 1.26 10^3/uL (1.2-3.4); Absolute Monocyte Count 0.95 10^3/uL (0.1-0.8); Absolute Neutrophil Count 3.04 10^3/uL (1.2-6.7); Basophils % 0.6; Eosinophils % 0.2; HCT 39.5 % (36.0-46.0); HGB 13.3 g/dL (11.2-15.7); Immature Grans % 0.2; Lymphocytes % 23.8; MCH 30.8 pg (27.0-33.0); MCHC 33.7 % (32.0-36.0); MCV 91 fL (80-95); MPV 10.1 fL (8.0-11.0); Monocytes % 17.9; Neutrophils % 57.3; Platelet Count 192 10^3/uL (130-400); RBC 4.32 10^6/uL (3.93-5.22); RDW 12.5 % (11.7-14.6); RDW-SD 42.4 fL
--- NOTE | 2022-09-04 09:01 | ED.PROG_ITS ---
Date of service: 09/04/22 Time of Service: 09:01 Medical Decision Making I was asked to see this patient by her advanced practitioner. Please see his complete note for details. In brief this is a 61-year-old female on no new medications presenting in the setting of body aches headaches and subjective fever with increased fatigue. She also noticed a rash that developed 2 days ago. She initially had a rash on the left side of her cheek and then subsequently yesterday developed a series of patches on her back and underneath her left breast. She denies any pruritus or pain with the patches. On physical exam patient has a left-sided malar distribution patch on her cheek. Her patches are blanching. There is a patch that is approximately 4 x 4 cm underneath her left breast as shown in the following photo and on the left side of her back, similar size. There are smaller blanching bright pink macules on her legs. She has no bullae to suggest Peter-Mason's nor TEM. No intraoral lesions. Areas are concerning for possible erythema multiform. Lyme disease also a concern, though patient denies any tick disease. No pain to suggest erysipelas. Erythema nodosum is also a possibility though the lesions are not limited to her lower extremities. This could certainly be an atypical presentation for systemic lupus erythematosus so inflammatory markers are being sent. There is no scaling nor satellite lesions to suggest tinea. Anticipate patient will be appropriate for discharge with outpatient follow-up. She could possibly have dermatomyositis given her systemic symptoms. Patient is quite well-appearing and certainly does not meet criteria for hospitalization so I anticipate she will be appropriate for discharge with outpatient PCP follow-up. Patient will be discharged on doxycycline. Discharge Plan Disposition Patient Disposition: Home Discharge Details Clinical Impression: Rash and nonspecific skin eruption Primary Care Provider: SWAPNA CANCINO ED Provider: Lalit Lynn Home Meds and New Rx's Prescriptions: New doxycycline hyclate 100 mg capsule 100 mg PO BID 10 Days Qty: 20 0RF Continued levalbuterol HCl 1.25 MG/3 ML solution for nebulization 1.25 mg Inhalation PRN PRN citalopram 20 MG tablet 20 mg PO DAILY aspirin [Aspir-81] 81 MG tablet,delayed release (DR/EC) 81 mg PO DAILY bupropion HCl [Wellbutrin] 100 MG tablet 100 mg PO BID lisinopril 10 MG tablet 10 mg PO DAILY Multi For Her 50 Plus 400-80 mcg Capsule 1 tab PO DAILY Discharge Instructions Instructions: Acute Rash (ED) Additional Instructions: At this time your rash is nonspecific. After discussion we have decided to start you on an antibiotic that would cover for tickborne illness but you should still continue to monitor your symptoms and return for new or worsening of your condition otherwise follow-up with your primary care provider for reassessment. Referrals: SWAPNA CANCINO, [facility] [Primary Care Provider] - 5 days
[2022-09-04 09:09] LABS: ALT 93 U/L (14-59); AST 56 U/L (15-37); Albumin 3.1 g/dL (3.4-5.0); Alkaline Phosphatase 132 U/L (46-116); Anion Gap 6.7 mmol/L (3-11); BUN 6 mg/dL (7-18); Bilirubin, Total 0.2 mg/dL (0.2-1.0); CO2 32.3 mmol/L (21.0-32.0); CREATININE 0.7 mg/dL (0.55-1.02); Calcium 9.8 mg/dL (8.5-10.1); Chloride 99 mmol/L (98-107); Estimated GFR 98.95 (mL/min/1.73m2); Glucose 154 mg/dL (74-106); Potassium 3.3 mmol/L (3.5-5.1); Sodium 138 mmol/L (136-145); Total Protein 7.3 g/dL (6.4-8.2)
[2022-09-04 09:21] LABS: ESR 33 mm/hr (0-30)
[2022-09-04 09:29] LABS: C-Reactive Protein 3.53 mg/dL (0.0-0.3)
--- NOTE | 2022-09-04 12:03 | NUR.NOTE ---
Referral made to follow up with PCP this week for rash per Barby Lynn. Put the referral in the medicare biller's box for f/u assistance.Nursing Note:
[2022-09-05 10:23] LABS: Lyme Ab w Rflx to Lyme Confirm Negative (Negative)
[2022-09-06 22:46] LABS: Anaplasma phagocytophilum Negative (Negative); B. miyamotoi PCR Negative (Negative); Babesia divergens/MO-1 Negative (Negative); Babesia duncani Negative (Negative); Babesia microti Negative (Negative); Ehrlichia chaffeensis Negative (Negative); Ehrlichia ewingii/canis Negative (Negative); Ehrlichia muris eauclairensis Negative (Negative)
== END 2022-09-04 10:43 | disposition home or self-care (01) ==
PROVIDERS: Emergency Provider Nurse Practitioner Family; PCP Nurse Practitioner Family
DX: R21 Rash and other nonspecific skin eruption (principal); R51.9 Headache, unspecified; M79.10 Myalgia, unspecified site; F17.210 Nicotine dependence, cigarettes, uncomplicated
CPT/HCPCS: 80053; 85652; 87798; 99283; 85025; 86140; 86618

== ENCOUNTER 2022-12-01 21:49 | Outpatient (REF) | payer OTHER, SELFPAY ==
[2022-12-01 19:26] LABS: Abs Immature Grans 0.02 10^3/uL (0.0-0.06); Absolute Basophil Count 0.06 10^3/uL (0.0-0.2); Absolute Eosinophil Count 0.21 10^3/uL (0.0-0.7); Absolute Lymphocyte Count 2.17 10^3/uL (1.2-3.4); Absolute Monocyte Count 0.65 10^3/uL (0.1-0.8); Absolute Neutrophil Count 4.65 10^3/uL (1.2-6.7); Basophils % 0.8; Eosinophils % 2.7; HCT 37.6 % (36.0-46.0); HGB 12.5 g/dL (11.2-15.7); Immature Grans % 0.3; MCH 31.3 pg (27.0-33.0); MCHC 33.2 % (32.0-36.0); MCV 94 fL (80-95); Monocytes % 8.4; Neutrophils % 59.8; Platelet Count 231 10^3/uL (130-400); RDW 13.7 % (11.7-14.6); RDW-SD 46.5 fL; WBC 7.76 10^3/uL (4.4-10.8)
[2022-12-01 19:54] LABS: Hemoglobin A1C 5.5 % (<5.7)
[2022-12-01 20:25] LABS: ALT 24 U/L (14-59); AST 20 U/L (15-37); Albumin 4.3 g/dL (3.4-5.0); Alkaline Phosphatase 75 U/L (46-116); Anion Gap 9.4 mmol/L (3-11); BUN 16 mg/dL (7-18); Bilirubin, Total 0.3 mg/dL (0.2-1.0); CO2 26.6 mmol/L (21.0-32.0); CREATININE 0.7 mg/dL (0.55-1.02); Calcium 10.6 mg/dL (8.5-10.1); Calculated LDL 206 mg/dL (<100); Chloride 103 mmol/L (98-107); Cholesterol 319 mg/dL (<200); Estimated GFR 98.95 (mL/min/1.73m2); Glucose 97 mg/dL (74-106); HDL Cholesterol 99 mg/dL (40-60); Potassium 3.9 mmol/L (3.5-5.1); Sodium 139 mmol/L (136-145); TSH (W/Ref FT4) 2.23 uIU/mL (0.36-3.74); Total Protein 7.6 g/dL (6.4-8.2); Triglyceride 70 mg/dL (<150)
== END 2022-12-01 21:50 | disposition home or self-care (01) ==
LOC: NCHCN 21:49
PROVIDERS: PCP Nurse Practitioner Family; Visit Provider Nurse Practitioner Family
DX: I10 Essential (primary) hypertension (principal); J44.9 Chronic obstructive pulmonary disease, unspecified; R79.89 Other specified abnormal findings of blood chemistry; F41.8 Other specified anxiety disorders; F10.99 Alcohol use, unspecified with unspecified alcohol-induced disorder; Z12.11 Encounter for screening for malignant neoplasm of colon; Z00.00 Encounter for general adult medical examination without abnormal findings
CPT/HCPCS: 80053; 80061; 83036; 84443; 85025

== ENCOUNTER 2023-07-10 10:28 | Day surgery (SDC) | payer OTHER, SELFPAY ==
--- NOTE | 2023-07-09 20:02 | W.PREOPHP ---
Assessment and Plan Assessment and plan (1) Encounter for screening colonoscopy: Status: Acute Assessment and plan: We reviewed the plan for routine screening colonoscopy as part basic health maintenance today. She had the opportunity to ask any questions. She was able to provide consent, and we can proceed as planned. History of Present Illness History of Present Illness Chief Complaint: Screening colonoscopy Narrative: Nichole is a 62 year old woman who had a colonoscopy 11 years ago. She needs her next screening colonoscopy for routine health maintenance. There is been no significant changes to the interval history or physical exam. PFSH All Active Problems Encounter for screening colonoscopy (Acute) Medical History Asthma Fibroid Hypertension COPD (chronic obstructive pulmonary disease) Pt. states she did the test and she ended up not having it but has asthma Nicotine dependence Transition to vaping approx 4 years ago. 40+ pack year history. Anxiety and depression Hyperlipidemia Seasonal allergies Alcohol dependence, continuous 3 beers nightly, and greater than 3 beers/drinks 2-3 times a week Elevated liver function tests Blood glucose elevated Social History Smoking/Tobacco Use Status: Current every day Tobacco Type: e-cigarettes Smoking risk assessment performed?: Yes Alcohol Intake: current Alcohol Intake frequency: 0-2 drinks per day Drug use: Never Substance use type: does not use Housing: house Do you feel safe at home: Yes Do you feel safe in your relationship?: Yes Meds Allergies and Home Medications Allergies Allergy/AdvReac Type Severity Reaction Status Date / Time erythromycin base AdvReac Nausea Verified 07/10/23 11:25 Home Medications Medication Instructions Recorded Confirmed Type levalbuterol HCl 1.25 mg/3 mL 1.25 mg inhalation PRN PRN 08/27/12 07/07/23 History solution for nebulization aspirin 81 mg tablet,delayed 81 mg PO DAILY 11/28/14 07/10/23 History release (Aspir-) bupropion HCl 100 mg tablet 100 mg PO BID 11/28/14 07/10/23 History (Wellbutrin) kekjyfuuqlwq-mmsnleau-xtbem acid 1 tab PO DAILY 01/08/18 07/10/23 History 400 mcg-vitamin K 80 mcg capsule (Multi For Her 50 Plus) albuterol sulfate 90 mcg/actuation 2 puff inhalation Q6H PRN 02/27/23 07/10/23 History aerosol inhaler calcium carb-Ca gluc 500 mg 1 tab PO DAILY 02/27/23 07/10/23 History calcium-magnesium ox-Mg gluc 250 mg tablet citalopram 20 mg tablet 20 mg PO DAILY 02/27/23 07/10/23 History escitalopram oxalate 10 mg tablet 20 mg PO DAILY 02/27/23 03/23/23 History (Lexapro) hydrochlorothiazide 12.5 mg tablet 12.5 mg PO QAM 02/27/23 07/10/23 History lisinopril 10 mg tablet 20 mg PO DAILY 02/27/23 07/10/23 History loratadine 10 mg tablet (Allergy 10 mg PO DAILY 02/27/23 07/10/23 History Relief (loratadine)) simvastatin 40 mg tablet 40 mg PO QPM 02/27/23 07/10/23 History Exam Const General: cooperative, healthy appearing and not in acute distress Neck Neck: normal visual inspection, no lymphadenopathy and supple Resp Effort & Inspection: normal respiratory effort Auscultation: clear to auscultation bilaterally Cardio Jugular venous pressure: no JVD Rate: regular rate Rhythm: regular rhythm Heart Sounds: S1 normal and S2 normal GI Inspection: normal to inspection Palpation: soft, no guarding, no hernias and nontender Percussion: normal to percussion Auscultation: normal bowel sounds Neuro General: patient alert, patient awake and patient oriented x3 Psych Appearance: grossly normal
--- NOTE | 2023-07-09 20:05 | W.PM.DSUDISC ---
Date of service: 07/10/23 Time of Service: 13:47 Discharge Plan Disposition Patient Disposition: Home Condition: Good Discharge Details Reason For Visit: screening colonoscopy Attending Provider: Suresh Machado Primary Care Provider: SWAPNA CANCINO Home Meds and New Rx's Prescriptions: Continued levalbuterol HCl 1.25 MG/3 ML solution for nebulization 1.25 mg Inhalation PRN PRN lisinopril 10 mg tablet 20 mg PO DAILY simvastatin 40 mg tablet 40 mg PO QPM hydrochlorothiazide 12.5 mg tablet 12.5 mg PO QAM albuterol sulfate 90 mcg/actuation HFA aerosol inhaler 2 puff inhalation Q6H PRN escitalopram oxalate [Lexapro] 10 mg tablet 20 mg PO DAILY Rx Instructions: cross titrate with celexa as instructed citalopram 20 mg tablet 20 mg PO DAILY Rx Instructions: cross titrate with lexapro as instructed Ca carb-Ca gluc-Mg ox-Mg gluco 500 mg calcium -250 mg tablet 1 tab PO DAILY loratadine [Allergy Relief (loratadine)] 10 mg tablet 10 mg PO DAILY aspirin [Aspir-81] 81 MG tablet,delayed release (DR/EC) 81 mg PO DAILY bupropion HCl [Wellbutrin] 100 MG tablet 100 mg PO BID Multi For Her 50 Plus 400-80 mcg Capsule 1 tab PO DAILY Discontinued bisacodyl [Dulcolax (bisacodyl)] 5 mg tablet,delayed release (DR/EC) 5 mg PO ONCE Qty: 4 0RF Rx Instructions: Take per colonoscopy instructions provided by ordering providers office polyethylene glycol 3350 17 gram/dose powder 17 g PO ONCE Qty: 238 0RF Rx Instructions: Take per colonoscopy instructions provided by ordering providers office Discharge Instructions Instructions: Colorectal Polyps (GEN) Additional Instructions: Nichole, we were able to complete your colonoscopy today without any difficulty. Your prep was excellent and I could see everything just fine. I did find a total of 4 polyps. All of these were quite small, none of them had any worrisome features to the naked eye. I removed these polyps today, and will be sent off for testing. Once into the nature of the polyps, the office will be in touch regarding the timing of your next colonoscopy. If you have any questions in the meantime, please do not hesitate to ask at any point 1. If tolerated, consume a soft, low fiber diet for 1-2 days. 2[address] Do not drive, drink alcohol, operate machinery, make critical decisions, or do activities that require coordination or balance for 24 hours. 3. Because air was put into your colon during the procedure, expelling air from your rectum (passing gas or farting) is normal. 4. You may not have a bowel movement for 1-3 days because of the colonoscopy prep. This is normal. 5. Go directly to the emergency room if you notice any of the following: Develop chills (warm to touch), or if you have a thermometer and your temperature is above 101 Difficulty breathing or difficultly swallowing Persistent vomiting Severe abdominal pain, other than gas cramps Severe chest pain Black, tarry stools Any bleeding ? exceeding one tablespoon 6. Call your physician if the site where your intravenous was started becomes red, swollen, painful, and warm to touch. 7. Your physician has reviewed your pre-procedure medications. Please continue to take those medications as previously ordered. You will be given specific information/education regarding any changes to your medications before leaving. Activity:: Activity as Tolerated Diet:: As Tolerated Discharge Orders Discharge Orders: Discharge Order (Routine); Ordered 07/09/23 Ordered By: Suresh Machado DS: Diagnosis Discharge Diagnosis (1) Encounter for screening colonoscopy: Status: Acute Asessment and Plan: Follow-up on polypectomy results
--- NOTE | 2023-07-09 20:06 | COLE_ITS ---
Date of service: 07/10/23 Time of Service: 13:48 Colonoscopy Report Date of procedure: 07/10/23 Pre-op diagnosis general: screening colonoscopy Post-op diagnosis procedure note: other (Colon polyps) Procedure: colonoscopy with polypectomy Surgeon: Suresh Machado Anesthesia Type: General:No Airway Estimated blood loss (mL): 10 Pathology: other (0.25 cm polyp at 75 cm, 0.25 cm polyp at 70 cm, 0.25 cm polyps at 30 cm x 2) Complications: None Disposition: same day Indications: Nichole is a 62 year old woman who needs a screening colonoscopy Prep: Miralax/Dulcolax Procedure Start Time: 13:21 Procedure End Time: 13:41 Retraction Time: 13 Findings: 0.25 cm polyp at 75 cm, 0.25 cm polyp at 70 cm, 0.25 cm polyps at 30 cm x 2 Procedure Description: After the induction of monitored anesthetic care, and with the patient in left lateral decubitus position, I began by performing an external anorectal exam.? Perineum and skin were normal, as was the anal verge.? There was no evidence of external hemorrhoids.? Next, I performed a digital rectal exam.? I did not appreciate any abnormal findings.? Next, I advanced a colonoscope into the rectal vault.? I performed retroflexion.? This appeared normal.? Using insufflation, I then advanced the colonoscope beyond the rectal folds and into the sigmoid colon before advancing towards the cecum.?The scope was noted to be in the cecum by identification of the ileocecal valve and appendiceal orifice.? I then began withdrawing the colonoscope using repeated irrigation as necessary for full evaluation of the colonic mucosa. Around 75 cm from the anal verge I identified a 0.25 cm polyp. ?It appeared flat in character. ?I was able to remove this with a cold forcep polypectomy. ?I examined the site, and there was minimal bleeding. ?Once this was completed, I continued to withdraw the scope and examine the remainder of the colonic mucosa.? I found another polyp at 70 cm. This was all 0 0.25 cm mostly flat. This was also removed with cold forceps. Also found 2 polyps at 30 cm from the anus. Each of these was less than 0.25 cm. Each of these polyps was flat, and I removed them both with cold forceps. Once the scope was withdrawn to the level of the rectum, great care was taken to examine portions of the rectal folds.? Finally, the scope was withdrawn and the patient was brought to the same-day surgery recovery unit as the anesthetic wore off. ?The findings and instructions were shared with the patient prior to discharge. [place] Bowel Prep [place] Bowel Prep Right Colon: 3 Left Colon: 3 Transverse Colon: 3 Total Score: 9
[2023-07-10 11:27] VITALS: BP 157/103; PULSE 97; RESP 22; TEMP 36.2; O2SAT 96
[2023-07-10] MEDS: Lactated Ringers 1,000 ML 80 ML IV (11:43)
--- NOTE | 2023-07-10 12:56 | ANES.PREOP_ITS ---
General Info Date of Service Date Performed: 07/10/23 Height: 5 ft 5 in Weight: 64.2 kg Body Mass Index (BMI): 23.5 Surgical Procedure: Operation Date: 07/10/23 12:05 Proposed Procedure Side Surgeon thanh Machado MD Meds Allergies and Home Medications Allergies Allergy/AdvReac Type Severity Reaction Status Date / Time erythromycin base AdvReac Nausea Verified 07/10/23 11:25 Home Medication Medication Instructions Recorded levalbuterol HCl 1.25 mg/3 mL 1.25 mg inhalation PRN PRN 08/27/12 solution for nebulization aspirin 81 mg tablet,delayed 81 mg PO DAILY 11/28/14 release (Aspir-) bupropion HCl 100 mg tablet 100 mg PO BID 11/28/14 (Wellbutrin) islnqiukipva-mpbwexqm-xvwdv acid 1 tab PO DAILY 01/08/18 400 mcg-vitamin K 80 mcg capsule (Multi For Her 50 Plus) albuterol sulfate 90 mcg/actuation 2 puff inhalation Q6H PRN 02/27/23 aerosol inhaler calcium carb-Ca gluc 500 mg 1 tab PO DAILY 02/27/23 calcium-magnesium ox-Mg gluc 250 mg tablet citalopram 20 mg tablet 20 mg PO DAILY 02/27/23 escitalopram oxalate 10 mg tablet 20 mg PO DAILY 02/27/23 (Lexapro) hydrochlorothiazide 12.5 mg tablet 12.5 mg PO QAM 02/27/23 lisinopril 10 mg tablet 20 mg PO DAILY 02/27/23 loratadine 10 mg tablet (Allergy 10 mg PO DAILY 02/27/23 Relief (loratadine)) simvastatin 40 mg tablet 40 mg PO QPM 02/27/23 Current Visit Medications: Current Medications Generic Name Dose Route Start Last Admin Trade Name Freq PRN Reason Stop Dose Admin Hyoscyamine Sulfate 0.125 mg 07/09/23 20:07 Hyoscyamine 0.125 Mg Sl/Oral/Chew SL 08/08/23 20:06 DIRECTED PRN Ringer's Solution 1,000 mls @ 80 mls/hr 07/10/23 06:00 07/10/23 11:43 IV 07/10/23 23:59 80 mls/hr INFUSION JONATHAN Administration IV Miscellaneous Supplies 1 each 07/10/23 06:00 Iv Access IV 06/03/24 23:59 DIRECTED JONATHAN Sodium Chloride 0 ml 07/10/23 06:00 Normal Saline Flush 10 Ml Syr IV 07/10/23 23:59 PRN PRN Sodium Chloride 0 ml 07/10/23 06:00 Normal Saline 10 Ml Vial IJ 07/10/23 23:59 DIRECTED PRN Sterile Water 0 ml 07/10/23 06:00 Water,Injection,Sterile 10 Ml Vial IJ 07/10/23 23:59 DIRECTED PRN PFSH Active Problems Active Problems: Problem Status Onset Code Encounter for screening colonoscopy Z12.11 Medical History Medical History Asthma Fibroid Hypertension COPD (chronic obstructive pulmonary disease) Pt. states she did the test and she ended up not having it but has asthma Nicotine dependence Transition to vaping approx 4 years ago. 40+ pack year history. Anxiety and depression Hyperlipidemia Seasonal allergies Alcohol dependence, continuous 3 beers nightly, and greater than 3 beers/drinks 2-3 times a week Elevated liver function tests Blood glucose elevated Tobacco Smoking/Tobacco Use Status: Current every day Tobacco Type: e-cigarettes Alcohol Alcohol Intake: current Alcohol intake frequency: 0-2 drinks per day Substance Use Substance use: Never Substance use type: does not use Vital Signs and Lab Results Vital Signs Most Recent Vital Signs in EMR: Most Recent Vital Signs Temp Pulse Resp BP Pulse Ox 36.2 C L 97 H 22 157/103 H 96 07/10/23 11:27 07/10/23 11:27 07/10/23 11:27 07/10/23 11:27 07/10/23 11:27 Lab Results Blood Type / Crossmatch: No Data to Display Complete Blood Count: No Data to Display Complete Metabolic Panel: No Data to Display Liver Function Panel: No Data to Display Coagulation Panel: No Data to Display Cardiac Panel: No Data to Display Arterial Blood Gas: No Data to Display Venous Blood Gas: No Data to Display Pancreas Panel: No Data to Display Thyroid Panel: No Data to Display Infectious Disease: No Data to Display Blood Cultures: No Data to Display Toxicology Panel: 2 No Data to Display Imaging and Studies Imaging and Studies Study information below may be from another EMR and interpreted by another provider. Please see original notes in EMR for more complete details. Pulmonary Function Summary: Date of service: 09/19/19 Time of Service: 01:08 Pulmonary Function Test Result Interpretation Spirometry: Shows no evidence of obstructive airways disease no bronchodilator response Lung Volumes: no evidence of restriction Diffusion Capacity: Normal Airway Pressure: Normal Impression Normal pulmonary function study, clinical correlation recommended Clinical Correlation therefore is recommended. Anesthesia Assessment and Plan Anesthesia History Personal History: No History of Anesthesia Complications Family History: No Family History of Anesthesia Complications Exercise Tolerance Exercise Tolerance: Metabolic Equivalents>4 Pertinent Negatives Pertinent Negatives: No Symptoms of GERD, No Major Cardiovascular Symptoms or Complaints, No Major Pulmonary Symptoms or Complaints and No History of CVA/TIA Cardiac & Pulmonary Exam Cardiac Exam: Normal S1/S2 Heart Sounds Pulmonary Exam: Clear Bilateral Breath Sounds Cardiac and Pulmonary Comment:: Asthma, inhaler use approximately once a week, triggered by increased activity. Implantable Cardiac Device Does patient have a Pacemaker or an ICD?: No Airway Exam Known Difficult Airway: No Mallampati Class: 2 Mouth Opening: Normal (> 3cm) Thyromental Distance: Greater than 3 cm Neck Range of Motion: Full ROM Neck Circumference: Normal Teeth Condition: Normal Dentition ASA Classification ASA Score: ASA 2 Emergency Case?: No NPO Status NPO Status: NPO Clears >2 hours, Solids >8 hours Anesthesia Plan Resuscitation Status: Full Code Anesthesia Technique: General Anesthesia Airway Planned: Natural Airway Monitors Used: Standard Monitors
[2023-07-10 12:57] VITALS: BMI 23.5
--- NOTE | 2023-07-10 13:31 | BOWEL_PTH ---
PATIENT: Nichole Heller LOC: [facility] U#:[id number] AGE/SX: 62/F ROOM: RE07/10/[address]: Suresh Machado MD : 1960 BED: DIS: 07/10/2023 SPEC #: [id number] RECD: 07/10/23 16:58 STATUS: OLGA RE #: [id number] LILI: 07/10/23 13:[address]: Suresh Machado DEPT: Surgical Specimen RECD BY: Diana Akhtar ENTERED: 07/10/23 16:59 SP TYPE: Bowel OTHR DR: SWAPNA CANCINO, JAMMIE Tissues: 1 - BIOPSY BOWEL 2 - BIOPSY BOWEL 3 - BIOPSY BOWEL Procedures: GROSS AND MICRO LEVEL 4 Comments: [id number]
[2023-07-10 13:48] VITALS: BP 114/90; PULSE 91; RESP 18; TEMP 36.5; O2SAT 97
--- NOTE | 2023-07-10 13:54 | W.ANESPOSTOP ---
Postoperative Evaluation Date, Time and Location Date Performed: 07/10/23 Time Performed: 13:54 Patient Location: Day Surgery Unit Vital Signs Most Recent Imported Vital Signs: Most Recent Vital Signs Temp Pulse Resp BP Pulse Ox 36.5 C 91 H 18 114/90 97 07/10/23 13:48 07/10/23 13:48 07/10/23 13:48 07/10/23 13:48 07/10/23 13:48 Pain Score Most Recent Pain Score: Most Recent Pain Score Pain Level 0 07/10/23 13:48 Assessment Mental Status: Awake (Alert & Oriented to Patient Baseline) Airway and Respiratory Function: Patent airway with normal (patient baseline) respiratory exam Cardiovascular Function: Hemodynamically Stable Hydration Status: Adequately Hydrated Nausea & Vomiting: No Nausea or Vomiting Pain: Pt. Denies Any Pain Peripheral Nerve Block: Patient did not receive a nerve block
[2023-07-10 14:23] VITALS: BP 166/85; PULSE 66; RESP 18; TEMP 36.6; O2SAT 97
== END 2023-07-10 14:50 | disposition home or self-care (01) ==
PROVIDERS: PCP Nurse Practitioner Family; Visit Provider Surgery
PROC: 0DJD8ZZ Inspection of Lower Intestinal Tract, Via Natural or Artificial Opening Endoscopic (ICD-10-PCS; CPT 45378; principal; 2023-07-10 12:00)
DX: Z12.11 Encounter for screening for malignant neoplasm of colon (principal); F17.200 Nicotine dependence, unspecified, uncomplicated; D12.4 Benign neoplasm of descending colon; K63.89 Other specified diseases of intestine
CPT/HCPCS: 45380; 88305; J2704

== ENCOUNTER 2023-12-06 19:34 | Outpatient (REF) | payer OTHER, SELFPAY ==
[2023-12-06 19:29] LABS: Abs Immature Grans 0.01 10^3/uL (0.0-0.06); Absolute Basophil Count 0.04 10^3/uL (0.0-0.2); Absolute Eosinophil Count 0.15 10^3/uL (0.0-0.7); Absolute Monocyte Count 0.65 10^3/uL (0.1-0.8); Absolute Neutrophil Count 3.97 10^3/uL (1.2-6.7); Basophils % 0.6 %; Eosinophils % 2.3 %; HCT 34.9 % (36.0-46.0); HGB 11.7 g/dL (11.2-15.7); Immature Grans % 0.2 %; Lymphocytes % 24.9 %; MCH 31.9 pg (27.0-33.0); MCHC 33.5 % (32.0-36.0); MCV 95 fL (80-95); MPV 10.6 fL (8.0-11.0); Monocytes % 10.1 %; Neutrophils % 61.9 %; Platelet Count 192 10^3/uL (130-400); RBC 3.67 10^6/uL (3.93-5.22); RDW 13.4 % (11.7-14.6); RDW-SD 46.5 fL; WBC 6.42 10^3/uL (4.4-10.8)
--- OUTSIDE RECORDS SUMMARY | 2023-12-06 19:36 | XMS_ITS | Referral Summary ---
Author Organization [facility] Address [address] [place] [address] Care Team Providers Care Mutuel Clerk Name Role Phone Unknown, Provider Primary Care Provider [phone] Social History Tobacco Use Types Packs/Day Years Used Date Smoking Tobacco: Never Assessed Sex and Gender Information Value Date Recorded Sex Assigned at Not on file Gender Identity Not on file Sexual Orientation Not on file Plan of Treatment Not on file Care Teams Mutuel Clerk Relationship Specialty Start Date End Date Unknown, Provider, PCP - General 09/13/12
--- OUTSIDE RECORDS SUMMARY | 2023-12-06 19:36 | XMS_ITS | Encounter Summary ---
Author Organization [facility] Address [address] [place] [address] Care Team Providers Care Hospitalist Physician Name Role Phone Unavailable Primary Care Provider Unavailabl e Encounter Details Date Type Department Care Team (Late st Contact Info) Description 03/11/2008 Before PRISM Converted Visit (Maple) [facility] - Maple conversion [address] [place] [address] Gregg Troy, JAMMIE [address] [place] [address] Social History Tobacco Use Types Packs/Day Years Used Date Smoking Tobacco: Never Assessed Sex and Gender Information Value Date Recorded Sex Assigned at Not on file Gender Identity Not on file Sexual Orientation Not on file documented as of this encounter Plan of Treatment Not on file documented as of this encounter Procedures Procedure Name Priority Date/Time Associated Diagnosis Comments CYTOPATHOLOGY Routine 03/11/2008 0:00 EST documented in this encounter Results * CYTOPATHOLOGY (03/11/2008 0:00 EST) Pathology Report: CYTOPATHOLOGY REPORT ? Reports generated via electronic interface contain original data; ? however they are lacking the format of the original report. ? Caution should be taken when reading/interpreti ng unformatted reports. ? Name: ? ROPER, NICHOLE ? Accession #: ? [id number] ? : ? 1960 (Age: 47) ??F ?Collect Date: ? 03/11/2008 ? Location: ? [facility] ? Receive Date: ? 03/13/2008 ? Provider: ?GREGG TROY NP ? Copy to: ? Specimen/Source: ?Pap Test, Cervix/Endocervix, ThinPrep Imaging System ? with manual evaluation ? Last Menstrual Period: ? 01/18/09 ? Other: ? HPVA - HPV testing requested if ASC-US on the current ThinPrep Pap test. ? SPECIMEN ADEQUACY ? Satisfactory for Evaluation ? - transformation zone component present ? GENERAL CATEGORIZATION ? Negative for Intraepithelial Lesion or Malignancy ? Document reviewed and electronically signed by: ? Pili Eusebio, CT(ASCP) ? Report Date: ??03/19/2008 14:12 ? End of Report ? ESTEFANIA FITCH 03/11/2008 03/13/2008 Gregg Troy NP PATHOLOGY ORDERABLES [facility] [address] [place] [address] documented in this encounter Visit Diagnoses Not on filedocumented in this encounter
--- OUTSIDE RECORDS SUMMARY | 2023-12-06 19:36 | XMS_ITS | Encounter Summary ---
[place] [address] Care Team Providers Care Paintings Restorer Name Role Phone Lilly Marcelino MD Primary Care Provider Encounter Details Date Type Department Care Team (Latest Contact Info) Description 08/25/2015 7:51 AM EDT - 08/25/2015 11:59 PM EDT Hospital [place] [address] Lilly Marcelino MD [facility] [address] [place], [place] [address] Encounter for screening mammogram for malignant neoplasm of breast Discharge Disposition: Home Social History Tobacco Use Types Packs/Day Years Used Date Smoking Tobacco: Never Assessed Sex and Gender Information Value Date Recorded Sex Assigned at Not on file Gender Identity Not on file Sexual Orientation Not on file documented as of this encounter Plan of Treatment Not on file documented as of this encounter Procedures Procedure Name Priority Date/Time Associated Diagnosis Comments MAMMO SCREENING CAD AND GEORGES BILATERAL Routine 08/25/2015 8:14 AM EDT Encounter for screening mammogram for malignant neoplasm of breast documented in this encounter Results * Mammo Digital Bilateral Screening With CAD and Tomosynthesis (08/25/2015 8:14 AM EDT) Anatomical Region Laterality Modality Breast Bilateral Mammography Narrative 08/25/2015 8:32 AM EDT BILATERAL MAMMOGRAPHY REASON FOR EXAM: Screening TECHNIQUE: CC and MLO views were obtained of each breast using standard 2-D mammography as well as 3-D tomosynthesis. Computer aided detection was used. This is compared with prior images. FINDINGS: The breasts are extremely dense, which lowers the sensitivity of mammography. There are no suspicious microcalcifications, masses, or areas of distortion. The pattern is stable. CONCLUSION: No mammographic evidence of malignancy. RECOMMENDATION: The [employer] and The Society of Breast Imaging recommend annual screening beginning at age 40 for the general female population. Screening should continue as long as a woman is in good health and is expected to live 10 more years or longer. All women should be familiar with the known benefits, limitations, and potential harms linked to breast cancer screening. They should also know how their breasts normally look and feel and report any breast changes to a health care provider right away. Some women - because of their family history, a genetic tendency, or certain other factors - should be screened with MRIs along with mammograms. (The number of women who fall into this category is very small.) The patient and health care provider should discuss the patient history and decide if earlier screening and breast MRI are appropriate. A result letter has been sent to this patient by [facility]. BIRADS CATEGORY 1: NEGATIVE Lilly Marcelino MD IMG MAMMO ORDERABLES documented in this encounter Visit Diagnoses Diagnosis Encounter for screening mammogram for malignant neoplasm of breast Other screening mammogram documented in this encounter Care Teams Paintings Restorer Relationship Specialty Start Date End Date Lilly Marcelino MD [address] [place] [address] [address] [place] [address] PCP - General 12/29/09 09/06/21 documented as of this encounter
--- OUTSIDE RECORDS SUMMARY | 2023-12-06 19:36 | XMS_ITS | Encounter Summary ---
Author Organization [facility] Address [address] [place] [address] Care Team Providers Care Professor Of Communication Arts Name Role Phone Unavailable Primary Care Provider Unavailabl e Encounter Details Date Type Department Care Team (Late st Contact Info) Description 06/30/2000 Results Only [facility] - [facility] conversion [address] [place] [address] Vladimir Chavez MD [address] [facility] [address] [address] Social History Tobacco Use Types Packs/Day Years Used Date Smoking Tobacco: Never Assessed Sex and Gender Information Value Date Recorded Sex Assigned at Not on file Gender Identity Not on file Sexual Orientation Not on file documented as of this encounter Plan of Treatment Not on file documented as of this encounter Procedures Procedure Name Priority Date/Time Associated Diagnosis Comments CYTOPATHOLOGY Routine 06/30/2000 0:00 EDT documented in this encounter Results * CYTOPATHOLOGY (06/30/2000 0:00 EDT) Pathology Report: CYTOPATHOLOGY REPORT Reports generated via electronic interface contain original data; however they are lacking the format of the original report. Caution should be taken when reading/interpreti ng unformatted reports. Name: ? NICHOLE ROPER ? Accession #: ? [id number] : ? 1960 (Age: 39) ??F ?Collect Date: ? 06/30/2000 Location: ? [facility] ? Receive Date: ? 07/05/2000 Provider: ?VLADIMIR CHAVEZ MD Copy to: ? Specimen/Source: ?Conventional Pap Test, Cervix/Endocervix Last Menstrual Period: ? Menstrual/Pregnanc y Status: ? Regular ? SPECIMEN ADEQUACY ? Satisfactory for evaluation. GENERAL CATEGORIZATION ? Within Normal Limits ? Document reviewed and electronically signed by: ? YESSICA Lux(ASCP) ? Report Date: ??07/06/2000 07:53 End of Report ESTEFANIA FITCH 06/30/2000 07/05/2000 Vladimir Chavez MD PATHOLOGY ORDERABLES ESTEFANIA FITCH [address] [place] [address] documented in this encounter Visit Diagnoses Not on filedocumented in this encounter
--- OUTSIDE RECORDS SUMMARY | 2023-12-06 19:36 | XMS_ITS | Encounter Summary ---
Author Organization [facility] Address [address] [place] [address] Care Team Providers Care First Front Ventilator Name Role Phone Unknown, Provider Primary Care Provider [phone] Encounter Details Date Type Department Care Team (Late st Contact Info) Description 09/16/2019 Lab Requisition [facility] Pathology & Laboratory Medicine - [address] [address] Outr Resulting Lab, Provider Social History Tobacco Use Types Packs/Day Years Used Date Smoking Tobacco: Never Assessed Sex and Gender Information Value Date Recorded Sex Assigned at Not on file Gender Identity Not on file Sexual Orientation Not on file documented as of this encounter Plan of Treatment Not on file documented as of this encounter Procedures Procedure Name Priority Date/Time Associated Diagnosis Comments DO NOT ORDER STANDALONE - BROAD COVID TEST Today 09/16/2019 9:16 EDT COVID-19 TESTING Routine 09/16/2019 9:16 EDT documented in this encounter Results * DO NOT ORDER STANDALONE - BROAD COVID TEST (09/16/2019 9:16 EDT) COVID-19 rt-PCR Result NEGATIVE Negative 09/17/2019 12:54 EDT [facility] Comment: 2019-novel Coronavirus (2019-nCoV) not detected by the qRT-PCR assay. Consider testing for other respiratory viruses or re-collecting for 2019-nCoV testing. Note: Optimum timing for peak viral levels during infections caused by 2019-nCoV have not been determined. Collection of multiple specimens from the same patient may be necessary to detect the virus. Limitations Positive results are indicative of active infection with SARS-CoV-2 but do not rule out bacterial infection or co-infection with other viruses. The agent detected may not be the definite cause of disease. In addition, detection of viral RNA may not indicate the presence of infectious virus or that SARS-CoV-2 is the causative agent for clinical symptoms. Negative results do not preclude SARS-CoV-2 infection and should not be used as the sole basis for patient management decisions. Negative results must be combined with clinical observations, patient history, and epidemiological information. False negative results may also occur if amplification inhibitors are present in the specimen or if inadequate numbers of organisms are present in the specimen. Optimum specimen types and timing for peak viral levels during infections caused by SARS-CoV-2 have not been fully determined. Collection of multiple specimens (types and time points) from the same patient may be necessary to detect the virus. The test was validated for use with upper respiratory specimens obtained via nasopharyngeal or oropharyngeal swabs in VTM, UTM, M4, M5, M6, saline, and MTM media. The performance of this test has not been established for other specimens. Specimens collected using other FDA recommended Specimen Collection Materials listed in the FDA COVID-19 Diagnostic Technologies communication (May 02, 2019) are processed with the caveat that they were not all validated for use with this test and the result must be interpreted in this context. Furthermore, a false negative results may occur if a specimen is improperly collected, transported or handled. If the virus mutates in the RT-PCR target region, SARS-CoV-2 may not be detected or may be detected less predictably. Inhibitors or other types of interference may produce a false negative result. An interference study evaluating the effect of common cold medications was not performed. This test is not FDA-cleared but its performance characteristics were established by our CLIA-certified, CAP-accredited, high complexity laboratory in accordance with CLIA regulations, [employer] [place] [employer] (CAP) guidelines (Apr 25, 2019), and FDA guidance (Apr 06, 2019). This test is only for use under the Food and Drug Administration's Emergency Use Authorization. Swab ENTIRE NASOPHARYNX / Unknown 09/16/2019 9:16 EDT 09/16/2019 15:13 EDT Provider Outr Resulting Lab MICROBIOLOGY - GENERAL ORDERABLES [facility] [place] * COVID-19 TESTING (09/16/2019 9:16 EDT) COVID-19 rt-PCR Result NEGATIVE Negative 09/17/2019 14:24 EDT [facility] Comment: 2019-novel Coronavirus (2019-nCoV) not detected by the qRT-PCR assay. Consider testing for other respiratory viruses or re-collecting for 2019-nCoV testing. Note: Optimum timing for peak viral levels during infections caused by 2019-nCoV have not been determined. Collection of multiple specimens from the same patient may be necessary to detect the virus. Limitations Positive results are indicative of active infection with SARS-CoV-2 but do not rule out bacterial infection or co-infection with other viruses. The agent detected may not be the definite cause of disease. In addition, detection of viral RNA may not indicate the presence of infectious virus or that SARS-CoV-2 is the causative agent for clinical symptoms. Negative results do not preclude SARS-CoV-2 infection and should not be used as the sole basis for patient management decisions. Negative results must be combined with clinical observations, patient history, and epidemiological information. False negative results may also occur if amplification inhibitors are present in the specimen or if inadequate numbers of organisms are present in the specimen. Optimum specimen types and timing for peak viral levels during infections caused by SARS-CoV-2 have not been fully determined. Collection of multiple specimens (types and time points) from the same patient may be necessary to detect the virus. The test was validated for use with upper respiratory specimens obtained via nasopharyngeal or oropharyngeal swabs in VTM, UTM, M4, M5, M6, saline, and MTM media. The performance of this test has not been established for other specimens. Specimens collected using other FDA recommended Specimen Collection Materials listed in the FDA COVID-19 [employer] communication (May 02, 2019) are processed with the caveat that they were not all validated for use with this test and the result must be interpreted in this context. Furthermore, a false negative results may occur if a specimen is improperly collected, transported or handled. If the virus mutates in the RT-PCR target region, SARS-CoV-2 may not be detected or may be detected less predictably. Inhibitors or other types of interference may produce a false negative result. An interference study evaluating the effect of common cold medications was not performed. This test is not FDA-cleared but its performance characteristics were established by our CLIA-certified, CAP-accredited, high complexity laboratory in accordance with CLIA regulations, [employer] [place] [employer] (CAP) guidelines (Apr 25, 2019), and FDA guidance (Apr 06, 2019). This test is only for use under the Food and Drug Administration's Emergency Use Authorization. Performing Lab [facility] 09/17/2019 14:24 EDT [facility] Swab 09/16/2019 9:16 EDT 09/16/2019 15:13 EDT Provider Outr Resulting Lab MICROBIOLOGY - GENERAL ORDERABLES [facility] [address] [place] [address] [facility] [place] [place] documented in this encounter Visit Diagnoses Not on filedocumented in this encounter Care Teams First Front Ventilator Relationship Specialty Start Date End Date Unknown, Provider, PCP - General 09/13/12 documented as of this encounter
--- OUTSIDE RECORDS SUMMARY | 2023-12-06 19:36 | XMS_ITS | Encounter Summary ---
Author Organization [facility] Address [address] [place] [address] Care Team Providers Care Foundry Laborer Coreroom Name Role Phone Unavailable Primary Care Provider Unavailabl e Encounter Details Date Type Department Care Team (Late st Contact Info) Description 12/30/2003 Results Only [facility] - Maple conversion [address] [place] [address] Lilly Mccauley MD [address] [address] Social History Tobacco Use Types Packs/Day Years Used Date Smoking Tobacco: Never Assessed Sex and Gender Information Value Date Recorded Sex Assigned at Not on file Gender Identity Not on file Sexual Orientation Not on file documented as of this encounter Plan of Treatment Not on file documented as of this encounter Procedures Procedure Name Priority Date/Time Associated Diagnosis Comments CYTOPATHOLOGY Routine 12/30/2003 0:00 EST documented in this encounter Results * CYTOPATHOLOGY (12/30/2003 0:00 EST) Pathology Report: CYTOPATHOLOGY REPORT Reports generated via electronic interface contain original data; however they are lacking the format of the original report. Caution should be taken when reading/interpreti ng unformatted reports. Name: ? NICHOLE ROPER ? Accession #: ? [id number] : ? 1960 (Age: 43) ??F ?Collect Date: ? 12/30/2003 Location: ? [facility] ? Receive Date: ? 01/02/2004 Provider: ?LILLY MCCAULEY MD Copy to: ? Specimen/Source: ?ThinPrep Pap Test, Cervix/Endocervix Last Menstrual Period: ? 12/22/03 Other: ? HPVA - HPV testing requested if ASC-US on the current ThinPrep Pap test. ? SPECIMEN ADEQUACY ? Satisfactory for Evaluation - transformation zone component present GENERAL CATEGORIZATION ? Negative for Intraepithelial Lesion or Malignancy ? Document reviewed and electronically signed by: ? Alfredo Valdivia, ALISON(ASCP) ? Report Date: ??01/09/2004 09:28 End of Report ESTEFANIA FITCH 12/30/2003 01/02/2004 Lilly Mccauley MD PATHOLOGY ORDERABLES ESTEFANIA FITCH [address] [place] [address] documented in this encounter Visit Diagnoses Not on filedocumented in this encounter
--- OUTSIDE RECORDS SUMMARY | 2023-12-06 19:36 | XMS_ITS | Encounter Summary ---
Author Organization [facility] Address [address] [place] [address] Care Team Providers Care Watch Parts Inspector Name Role Phone Unknown, Provider Primary Care Provider [phone] Encounter Details Date Type Department Care Team (Late st Contact Info) Description 07/10/2023 Lab Requisition [facility] Pathology & Laboratory Medicine - [address] [id number] Suresh Machado MD [address] [place] [address], [address] [place], [place] [id number] Encounter for screening for malignant neoplasm of colon Social History Tobacco Use Types Packs/Day Years Used Date Smoking Tobacco: Never Assessed Sex and Gender Information Value Date Recorded Sex Assigned at Not on file Gender Identity Not on file Sexual Orientation Not on file documented as of this encounter Plan of Treatment Not on file documented as of this encounter Procedures Procedure Name Priority Date/Time Associated Diagnosis Comments SURGICAL PATHOLOGY Today 07/10/2023 13 :31 EDT Encounter for screening for malignant neoplasm of colon documented in this encounter Results * SURGICAL PATHOLOGY (07/10/2023 13:31 EDT) Note to Patient The following pathology results have been interpreted by your pathologist and may be available to you before your health provider has had the opportunity to review them. Please allow time for your provider to receive these results and explore management options, if applicable. 07/12/2023 17:05 EDT [facility] Final Diagnosis A. COLON, 75 CMS, POLYP, BIOPSY: - Colonic mucosa with no significant diagnostic abnormalities. - No definite polyp identified. - Benign lymphoid aggregate noted. - Deeper sections x3 examined. B. COLON, 70 CMS, POLYP, BIOPSY: - Sessile serrated adenoma. - Deeper sections x3 examined. C. COLON, 30 CMS, POLYPS X2, BIOPSY: - Hyperplastic polyps. 07/12/2023 17:05 [facility] Attestation By the signature below, the attending physician certifies that they have 1) personally conducted a gross and/or microscopic examination of the described specimen(s), and/or personally interpreted the results of laboratory testing of the described specimen(s), and 2) personally rendered or confirmed the above diagnosis. 07/12/2023 17:05 [facility] at 1705 Clinical History Colorectal cancer screening 07/12/2023 17:05 [facility] Gross Description A. Received in formalin labelled with proper patient identification (initials M, L) and colon polyp at 75 cm is a single oglesby tissue fragment (0.5 x 0.3 x 0.2 cm). Entirely submitted in A1. B. Received in formalin labelled with proper patient identification (initials M, L) and colon polyp at 70 cm is a single pale oglesby tissue fragment (0.4 x 0.2 x 0.1 cm). Entirely submitted in B1. C. Received in formalin labelled with proper patient identification (initials M, L) and colon polyps at 30 cm x 2 are two oglesby-brown tissue fragments (0.2 x 0.1 x 0.1 cm and 0.5 x 0.4 x 0.1 cm). Entirely submitted in C1. Kenzie Bolanos 07/11/2023 9:31 07/12/2023 17:05 [facility] Performing Lab [facility] 07/12/2023 17:05 [facility] Scanned Images 07/12/2023 17:05 [facility] Tissue POLYP OF COLON / Unknown 07/10/2023 13:31 EDT 07/10/2023 22:57 EDT Tissue specimen (specimen) POLYP OF COLON / Unknown 07/10/2023 13:31 EDT 07/10/2023 22:57 EDT Tissue specimen (specimen) POLYP OF COLON / Unknown 07/10/2023 13:31 EDT 07/10/2023 22:57 EDT Suresh Machado MD PATHOLOGY ORDERABLES [facility] [address] [place] [address] documented in this encounter Visit Diagnoses Diagnosis Encounter for screening for malignant neoplasm of colon Special screening for malignant neoplasms, colon documented in this encounter Care Teams Watch Parts Inspector Relationship Specialty Start Date End Date Unknown, Provider, PCP - General 09/13/12 documented as of this encounter
--- OUTSIDE RECORDS SUMMARY | 2023-12-06 19:36 | XMS_ITS | Encounter Summary ---
Author Organization [facility] Address [address] [place] [address] Care Team Providers Care Binder Selector Name Role Phone Unavailable Primary Care Provider Unavailabl e Encounter Details Date Type Department Care Team (Late st Contact Info) Description 03/09/1999 Results Only [facility] - Maple conversion [address] [place] [address] Noni Valdivia, [facility] [place] [address] [place] [phone] Social History Tobacco Use Types Packs/Day Years Used Date Smoking Tobacco: Never Assessed Sex and Gender Information Value Date Recorded Sex Assigned at Not on file Gender Identity Not on file Sexual Orientation Not on file documented as of this encounter Plan of Treatment Not on file documented as of this encounter Procedures Procedure Name Priority Date/Time Associated Diagnosis Comments CYTOPATHOLOGY Routine 03/09/1999 14:09 EST documented in this encounter Results * CYTOPATHOLOGY (03/09/1999 14:09 EST) Pathology Report: CYTOPATHOLOGY REPORT Reports generated via electronic interface contain original data; however they are lacking the format of the original report. Caution should be taken when reading/interpreti ng unformatted reports. Name: ? NICHOLE ROPER ? Accession #: ? [id number] : ? 1960 (Age: 38) ??F ?Collect Date: ? 03/09/1999 Location: ?Receive Date: ? 03/09/1999 Provider: ?NONI AMPARO HARPSICHORD MAKER Copy to: ?NONI AMPARO HARPSICHORD MAKER ? Specimen/Source: ?Solar Sales Assessor ThinPrep Last Menstrual Period: ? GYNECOLOGIC ??CYTOPATHOLOGY ??REPORT Name: NICHOLE MERCADO ? [facility] : 1960 ?? 38Y F ?Client ID: [id number] SS#: ? Clinician: AMPARO HARPSICHORD MAKER, NONI ?? Location: [facility] ??Copy to: ?? Specimen: ?Solar Sales Assessor ThinPrep ? Source: Cervix/Endocervix ?Collected: 03/05/99 ? Received: 03/09/1999 ?LMP: 12/07/98 ? Hormone Therapy: No ? : Yes ?Radiation Therapy: No ?? Post : No ?Chemotherapy: No ?IUD: No ? Prev Abnormal Pap: ? Clinical Hx: Pt reports abn pap 3 years ago, we have no results. ?(Blank ruvalcaba indicate information not provided on requisition) SPECIMEN ADEQUACY: ? Satisfactory For Evaluation ?? GENERAL CATEGORIZATION: ? WITHIN NORMAL LIMITS ? Reviewed And Electronically Signed By: ? Roseline Donahue, CT(ASCP) ? Report Date: ?? 03/09/1999 [employer] Archived Tests - Final Diagnosis Text Field: Clinical History : ;Pt reports abn pap 3 years ago, we have no results. ? Document reviewed and electronically signed by: ? Conversion ? Report Date: ??03/09/1999 00:00 End of Report ESTEFANIA FITCH 03/09/1999 14:0 9 EST 03/09/1999 14:10 EST Noni Valdivia HARPSICHORD MAKER PATHOLOGY ORDERABLES ESTEFANIA FITCH [address] [place] [address] documented in this encounter Visit Diagnoses Not on filedocumented in this encounter
--- OUTSIDE RECORDS SUMMARY | 2023-12-06 19:36 | XMS_ITS | Encounter Summary ---
[place] [address] Care Team Providers Care Dough Mixing Machine Operator Name Role Phone Lilly Marcelino MD Primary Care Provider [phone] Encounter Details Date Type Department Care Team (Latest Contact Info) Description 04/21/2011 11:06 AM EDT - 04/21/2011 11:59 PM EDT Hospital [place] [address] CLINIC, Lilly Morton MD [facility] [address] [place] [phone] Discharge Disposition: Home Social History Tobacco Use [...] Date/Time Associated Diagnosis Comments MAMMO SCREENING CAD BILATERAL Routine 04/21/2011 11:23 AM EDT documented in this encounter Results * MAMMO DIGITAL BILATERAL SCREENING WITH CAD (04/21/2011 11:23 AM EDT) Anatomical Region Laterality Modality Breast Bilateral Mammography 04/21/2011 11:2 3 AM EDT Narrative 04/25/2011 11:35 AM EDT BILATERAL MAMMOGRAPHY ?? REASON FOR EXAM: Screening ?? TECHNIQUE: Cranio-caudal (CC) and mediolateral oblique (MLO) views of both breasts obtained with direct digital capture. The exam was evaluated by CAD Version 8.3.17. ? In addition to the routine 2D imaging this exam was also performed with 3D tomographic imaging in MLO and CC projections. ?? FINDINGS: This is a negative mammogram (ACR Category 1). There is a stable fibroglandular pattern without significant change as compared to prior studies. There is no mammographic evidence of cancer. ? The breasts are extremely dense which greatly limits the mammographic sensitivity for the detection of malignancy. ? CONCLUSION ?? This is a NEGATIVE mammogram (ACR Category 1). Routine screening mammography is recommended with the frequency dependent on the patient's age and breast cancer risk factors. ?? A letter has been sent to this patient by [facility]. Procedure Note Jacquelin Kerr MD - 04/25/2011 BILATERAL MAMMOGRAPHY REASON FOR EXAM: Screening TECHNIQUE: Cranio-caudal (CC) and mediolateral oblique (MLO) views of both breasts obtained with direct digital capture. The exam was evaluated byCAD Version 8.3.17. In addition to the routine 2D imaging this exam was also performed with 3D tomographic imaging in MLO and CC projections. FINDINGS: This is a negative mammogram (ACR Category 1). There is a stable fibroglandular pattern without significant change as compared to priorstudies. There is no mammographic evidence of cancer. The breasts are extremely dense which greatly limits the mammographic sensitivity for the detection of malignancy. CONCLUSION This is a NEGATIVE mammogram (ACR Category 1). Routine screeningmammography is recommended with the frequency dependent on the patient's age and breastcancer risk factors. A letter has been sent to this patient by the [facility]. Lilly Marcelino MD IMG MAMMO ORDERABLES documented in this encounter Visit Diagnoses Not on filedocumented in this encounter Care Teams Dough Mixing Machine Operator Relationship Specialty Start Date End Date Lilly Marcelino MD [address] [place] [address] PCP - General 12/29/09 09/06/21 documented as of this encounter
--- OUTSIDE RECORDS SUMMARY | 2023-12-06 19:36 | XMS_ITS | Encounter Summary ---
Author Organization [facility] Address [address] [place] [address] Care Team Providers Care Blade Grader Operator Name Role Phone Unavailable Primary Care Provider Unavailabl e Encounter Details Date Type Department Care Team (Late st Contact Info) Description 09/11/2012 Results Only [facility] - [facility] [place] [address] [place], [place] [address] Albert Hare, DO [address] [place] [address] Social History Tobacco Use Types Packs/Day Years Used Date Smoking Tobacco: Never Assessed Sex and Gender Information Value Date Recorded Sex Assigned at Not on file Gender Identity Not on file Sexual Orientation Not on file documented as of this encounter Plan of Treatment Not on file documented as of this encounter Procedures Procedure Name Priority Date/Time Associated Diagnosis Comments SURGICAL PATHOLOGY Routine 09/11/2012 9:23 EDT documented in this encounter Results * SURGICAL PATHOLOGY (09/11/2012 9:23 EDT) Pathology Report: SURGICAL PATHOLOGY REPORT Reports generated via electronic interface contain original data; however they are lacking the format of the original report. Caution should be taken when reading/interpreting unformatted reports. Name: ? NICHOLE ROPER ? Accession #: ? [id number] ? : ? 1960 (Age: 51) ??F ? Collect Date: ? 09/11/2012 ? Location: ? [facility] ? Receive Date: ? 09/12/2012 ? Provider: ALBERT HARE DO Copy to: UTE MCCAULEY MD ? Final Pathologic Diagnosis: COLON, POLYP, 40 CM, BIOPSY: - ??Hyperplastic polyp. ??See comment. Comment: ? Deeper levels have been examined. Ski Lift Operator sections of this case were reviewed at the intradepartmental consultation conference. ?? Document reviewed and electronically signed by: MUKUL GARCIA MD Report ??Date: 09/16/2012 08:53 By the signature above, the attending physician certifies that he/she has personally conducted a gross and/or microscopic examination of the described specimens and rendered or confirmed the above diagnosis. Specimen(s) Received: Colon polyp 40 cm Clinical History: Colorectal screen Gross Description: ? Received in formalin labelled with proper patient identification (initials M, L) and colon polyp 40 cm are two light oglesby tissues (0.2 x 0.2 x 0.1 cm and 0.2 x 0.2 x 0.1 cm). Entirely submitted in block 1. [place] 09/12/2012 10:14 AM End of Report ESTEFANIA FITCH 09/11/2012 9:23 EDT 09/12/2012 9:23 EDT Albert Hare DO PATHOLOGY ORDER JANUSZ ESTEFANIA FITCH [address] [place] [address] documented in this encounter Visit Diagnoses Not on filedocumented in this encounter
--- OUTSIDE RECORDS SUMMARY | 2023-12-06 19:36 | XMS_ITS | Encounter Summary ---
Author Organization [facility] Address [address] [place] [address] Care Team Providers Care Label Cutter Name Role Phone Unavailable Primary Care Provider Unavailabl e Encounter Details Date Type Department Care Team (Late st Contact Info) Description 01/20/2006 Results Only [facility] - Maple conversion [address] [place] [address] Gregg Troy, JAMMIE [address] [place] [address] Social History Tobacco Use Types [...] Priority Date/Time Associated Diagnosis Comments CYTOPATHOLOGY Routine 01/20/2006 0:00 EST documented in this encounter Results * CYTOPATHOLOGY (01/20/2006 0:00 EST) Pathology Report: CYTOPATHOLOGY REPORT Reports generated via electronic interface contain original data; however they are lacking the format of the original report. Caution should be taken when reading/interpreti ng unformatted reports. Name: ? NICHOLE ROPER ? Accession #: ? [id number] : ? 1960 (Age: 45) ??F ?Collect Date: ? 01/20/2006 Location: ? [facility] ? Receive Date: ? 01/24/2006 Provider: ?GREGG TROY MIDLEVEL PROVIDER Copy to: ? Specimen/Source: ?ThinPrep Pap Test, Cervix/Endocervix, processed on [employer] ThinPrep Imaging System, with manual evaluation Last Menstrual Period: ? 12/26/05 Other: ? HPVA - HPV testing requested if ASC-US on the current ThinPrep Pap test. ? SPECIMEN ADEQUACY ? Satisfactory for Evaluation - transformation zone component present GENERAL CATEGORIZATION ? Negative for Intraepithelial Lesion or Malignancy ? Document reviewed and electronically signed by: ? ALISON Cobb(ASCP) ? Report Date: ??01/25/2006 15:00 End of Report ESTEFANIA FITCH 01/20/2006 01/24/2006 Gregg Troy NP PATHOLOGY ORDERABLES Performing Organization Address City/State/[facility] Co de Phone Number ESTEFANIA FITCH [address] [place] [address] documented in this encounter Visit Diagnoses Not on filedocumented in this encounter
--- OUTSIDE RECORDS SUMMARY | 2023-12-06 19:36 | XMS_ITS | Clinical Summary ---
Author Organization [facility] [place] [address] Care Team Providers Care Carpenter Helper Name Role Phone Heena Koo APRN Primary Care Provider [phone] Family History Medical History Relation Comments Breast Cancer Neg Hx Social History Tobacco Use Types Packs/Day Years Used Date Smoking Tobacco: Never Assessed Sex and Gender Information Value Date Recorded Sex Assigned at Not on file Gender Identity Not on file Sexual Orientation Not on file Plan of Treatment Health Maintenance Due Date Last Done Comments CT Colonography 1960 Colonoscopy 1960 Colorectal Cancer Screening 1960 FIT DNA 1960 FIT 1960 Sigmoidoscopy (10 year) with FIT yearly 1960 Sigmoidoscopy 1960 HIV screen 12/25/1979 Hepatitis C Screening 12/25/1979 Tetanus/Diphtheria/Pertussis Vaccines (1 - Tdap) 1980 HPV test 12/25/1991 PAP Smear 12/25/1991 Breast Cancer Share Decision Needed 2001 Zoster vaccine (1 of 2) 12/25/2011 Advance Directive 2016 Breast Cancer screening 09/28/2023 09/28/19, 09/18/2018, 08/26/2016, Additional history exists Covid-19 Vaccine ( - 2022-2 4 season) 2023 Influenza (Flu) vaccine (1 o f 1 - Influenza standard series) 10/08/2023 Procedures Procedure Name Priority Date/Time Associated Diagnosis Comments MAMMO SCREENING CAD AND GEORGES BILATERAL Routine 09/27/2021 12:56 PM EDT Screening mammogram for breast cancer from Last 3 Months or Most Recently Relevant to Health Maintenance Results * Mammo Screening Cad and Georges Bilateral (09/27/2021 12:56 PM EDT) Anatomical Region Laterality Modality Breast Bilateral Mammography Narrative 09/28/2021 6:53 AM EDT BILATERAL MAMMOGRAPHY REASON FOR EXAM: Screening TECHNIQUE: CC and MLO views were obtained of each breast using standard 2-D mammography as well as 3-D tomosynthesis. Computer aided detection was used. This is compared with prior images. FINDINGS: ??The breasts are heterogeneously dense, which may obscure small masses. There are no suspicious microcalcifications, masses, or areas of distortion. The pattern is stable. CONCLUSION: No mammographic evidence of malignancy. RECOMMENDATION: Regular screening mammograms starting between age 40 and 50 reduces the risk of from breast cancer. All screening tests have both risks and benefits. These risks and benefits should be assessed for each individual patient through discussion with their provider to determine their preferred breast cancer screening schedule. Women should report any breast changes to a health care provider right away. Some women, because of their family history, a genetic tendency, or other factors, should be screened with annual breast MRI as well as with mammograms. (The number of women who fall into this category is very small). Patients and health care providers should discuss each patient? s history to decide if earlier screening and/or breast MRI are appropriate. Screening should continue as long as a woman is in good health and is expected to live 10 years or longer. Screening mammography may not detect 10-15% of breast cancers. A result letter has been sent to this patient by the [facility]. BIRADS CATEGORY 1: NEGATIVE Electronically signed by: LAZARA CHEATHAM MD Heena Koo APRN IMG MAMMO ORDERABLES from Last 3 Months or Most Recently Relevant to Health Maintenance Care Teams Carpenter Helper Relationship Specialty Start Date End Date Heena Koo APRN [facility] [place] [address] PCP - General Family Medicine 09/07/21
--- OUTSIDE RECORDS SUMMARY | 2023-12-06 19:36 | XMS_ITS | Encounter Summary ---
[place] [address] Care Team Providers Care Lawn Caretaker Name Role Phone Lilly Marcelino MD Primary Care Provider [phone] Encounter Details Date Type Department Care Team (Latest Contact Info) Description 09/18/2018 8:16 AM EDT - 09/18/2018 11:59 PM EDT Hospital Encounter Mammography/[place] [address] Lilly Marcelino MD [facility] [address] [facility] [address] [place] [address] Encounter for screening mammogram for breast cancer Discharge Disposition: Home Social History Tobacco Use [...] Associated Diagnosis Comments MAMMO SCREENING CAD AND BARRY BILATERAL Routine 09/18/2018 8:36 AM EDT Encounter for screening mammogram for breast cancer documented in this encounter Results * Mammo Screening Cad and Barry Bilateral (09/18/2018 8:36 AM EDT) Anatomical Region Laterality Modality Breast Bilateral Mammography Narrative 09/18/2018 8:58 AM EDT BILATERAL MAMMOGRAPHY REASON FOR EXAM: [...] CONCLUSION: No mammographic evidence of malignancy. RECOMMENDATION: Medical organizations agree that annual screening mammography beginning at age 40 saves the most lives. The risks of screening are negligible compared to dying from breast cancer or suffering from more aggressive treatment required when detected at a later stage. No woman is at low risk for breast cancer. Some women, because of their family history, a genetic tendency, or certain other factors, should be screened with breast MRI along with mammograms. (The number of women who fall into this category is very small). The patient and health care provider should discuss the patient history and decide if earlier screening and breast MRI are appropriate. Screening should continue as long as a woman is in good health and is expected to live 10 years or longer. Screening mammography may not detect 10-15% of breast cancers. Women should report any breast changes to a health care provider right away. A result letter has been sent to this patient by the [facility]. BIRADS CATEGORY 1: NEGATIVE Lilly Marcelino MD IM MAMMO ORDERABLES documented in this encounter Visit Diagnoses Diagnosis Encounter for screening mammogram for breast cancer documented in this encounter Care Teams Lawn Caretaker Relationship Specialty Start Date End Date Lilly Marcelino MD [facility] [address] [place] [address] PCP - General 12/29/09 09/06/21 documented as of this encounter
--- OUTSIDE RECORDS SUMMARY | 2023-12-06 19:36 | XMS_ITS | Encounter Summary ---
Author Organization [facility] Address [address] [place] [address] Care Team Providers Care Accounting Advisory Services Manager Name Role Phone Unavailable Primary Care Provider Unavailabl e Encounter Details Date Type Department Care Team (Late st Contact Info) Description 03/06/2007 Results Only [facility] - Maple conversion [address] [place] [address] Gregg Troy, JAMMIE [address] [place] [address] Social History Tobacco Use Types [...] Priority Date/Time Associated Diagnosis Comments CYTOPATHOLOGY Routine 03/06/2007 0:00 EST documented in this encounter Results * CYTOPATHOLOGY (03/06/2007 0:00 EST) Pathology Report: CYTOPATHOLOGY REPORT Reports generated via electronic interface contain original data; however they are lacking the format of the original report. Caution should be taken when reading/interpreti ng unformatted reports. Name: ? NICHOLE ROPER ? Accession #: ? [id number] : ? 1960 (Age: 46) ??F ?Collect Date: ? 03/06/2007 Location: ? [facility] ? Receive Date: ? 03/08/2007 Provider: ?GREGG TROY ASH KIER BOILER Copy to: ? Specimen/Source: ?ThinPrep Pap Test, Cervix/Endocervix, processed on [employer] ThinPrep Imaging System, with manual evaluation Last Menstrual Period: ? 02/26/07 Hormonal/Contracep tive Status: ? Tubal ligation Other: ? HPVA - HPV testing requested if ASC-US on the current ThinPrep Pap test. ? SPECIMEN ADEQUACY ? Satisfactory for Evaluation - transformation zone component absent GENERAL CATEGORIZATION ? Negative for Intraepithelial Lesion or Malignancy ? Document reviewed and electronically signed by: ? ALISON Alcocer(ASCP) ? Report Date: ??03/13/2007 07:22 End of Report ESTEFANIA FITCH 03/06/2007 03/08/2007 Gregg Troy NP PATHOLOGY ORDERABLES Performing Organization Address City/State/[facility] Co de Phone Number ESTEFANIA FITCH [address] [place] [address] documented in this encounter Visit Diagnoses Not on filedocumented in this encounter
--- OUTSIDE RECORDS SUMMARY | 2023-12-06 19:36 | XMS_ITS | Encounter Summary ---
Author Organization [facility] Address [address] [place] [address] Care Team Providers Care Electrical Assembler Name Role Phone Unavailable Primary Care Provider Unavailabl e Encounter Details Date Type Department Care Team (Late st Contact Info) Description 07/23/2012 Results Only [facility] Laboratory Services - [facility] ([facility]) [address] [place], [place] [id number] Gregg Troy, JAMMIE [address] [place] [address] Social History Tobacco Use Types Packs/Day Years Used Date Smoking Tobacco: Never Assessed Sex and Gender Information Value Date Recorded Sex Assigned at Not on file Gender Identity Not on file Sexual Orientation Not on file documented as of this encounter Plan of Treatment Not on file documented as of this encounter Procedures Procedure Name Priority Date/Time Associated Diagnosis Comments PAP TEST- RESULT ONLY Routine 07/23/2012 0:00 EDT documented in this encounter Results * PAP TEST- RESULT ONLY (07/23/2012 0:00 EDT) Pathology Report: CYTOPATHOLOGY REPORT Reports generated via electronic interface contain original data; however they are lacking the format of the original report. Caution should be taken when reading/interpreti ng unformatted reports. Name: ? NICHOLE ROPER ? Accession #: ? [id number] : ? 1960 (Age: 51) ??F ?Collect Date: ? 07/23/2012 Location: ? [facility] ? Receive Date: ? 07/25/2012 Provider: ?GREGG TROY SUBSTATION MAINTENANCE TECHNICIAN Copy to: ? Specimen/Source: ?Pap Test, Cervix/Endocervix, ThinPrep Imaging System with manual evaluation Last Menstrual Period: ? 01/2012 ? SPECIMEN ADEQUACY ? Satisfactory for Evaluation - transformation zone component absent GENERAL CATEGORIZATION ? Negative for Intraepithelial Lesion or Malignancy ? Document reviewed and electronically signed by: ? Aimee García, CT(ASCP)(IAC) ? Report Date: ??07/30/2012 11:53 End of Report ESTEFANIA FITCH 07/23/2012 07/25/2012 Gregg Troy NP PATHOLOGY ORDERABLES [facility] [address] [place] [address] documented in this encounter Visit Diagnoses Not on filedocumented in this encounter
--- OUTSIDE RECORDS SUMMARY | 2023-12-06 19:36 | XMS_ITS | Encounter Summary ---
[place] [address] Care Team Providers Care Searchlight Operator Name Role Phone Lilly Marcelino MD Primary Care Provider [phone] Encounter Details Date Type Department Care Team (Latest Contact Info) Description 05/20/2014 9:48 AM EDT - 05/20/2014 11:59 PM EDT Hospital [place] [address] CLINIC, Lilly Morton MD [facility] [address] [place] [phone] Discharge Disposition: Home Social History Tobacco Use [...] Name Priority Date/Time Associated Diagnosis Comments MAMMO 2D DIGITAL SCREEN BARRY BILATERAL Routine 05/20/2014 10:12 AM EDT documented in this encounter Results * Mammography Screen Barry 2D Bilateral (05/20/2014 10:12 AM EDT) Anatomical Region Laterality Modality Breast Bilateral Mammography 05/20/2014 10:1 2 AM EDT Narrative 05/21/2014 7:40 AM EDT Reason for Exam: Screening ?? Technique: Craniocaudal (CC) and Medio-lateral Oblique (MLO) views of both breasts obtained with direct digital capture. In addition to routine 2-D imaging, this exam was also performed with 3-D Tomographic Imaging (MLO and CC). ?? The exam was evaluated by CAD version 8.3.17. ?? Findings: ?? This is a negative mammogram (ACR Category 1). There is a stable fibroglandular pattern without significant change from prior studies. There is no mammographic evidence of cancer. The breasts are heterogeneously dense which limits mammographic sensitivity for the detection of malignancy. ?? CONCLUSION: This is a NEGATIVE mammogram (ACR Category 1). ?? Routine screening mammography is recommended with the frequency dependent upon the patients age and breast cancer risk factors. A letter has been sent to this patient by the breast imaging center. ?? Procedure Note Magaly Manley MD - 05/21/2014 Reason for Exam: Screening Technique: Craniocaudal (CC) and Medio-lateral Oblique (MLO) views of both breasts obtained with direct digital capture. In addition to routine 2-D imaging, this exam was also performed with 3-D Tomographic Imaging (MLOand CC). The exam was evaluated by CAD version 8.3.17. Findings: This is a negative mammogram (ACR Category 1). There is a stablefibroglandular pattern without significant change from prior studies. There is no mammographic evidence of cancer. The breasts areheterogeneously dense which limits mammographic sensitivity for the detection ofmalignancy. CONCLUSION: This is a NEGATIVE mammogram (ACR Category 1). Routine screening mammography is recommended with the frequency dependentupon the patients age and breast cancer risk factors. A letter has been sent to this patient by the [facility]. Ely Beltre APRN IMG MAMMO ORDERABL ES documented in this encounter Visit Diagnoses Not on filedocumented in this encounter Care Teams Searchlight Operator Relationship Specialty Start Date End Date Lilly Marcelino MD [address] [place] [address] PCP - General 12/29/09 09/06/21 documented as of this encounter
--- OUTSIDE RECORDS SUMMARY | 2023-12-06 19:36 | XMS_ITS | Encounter Summary ---
[place] [address] Care Team Providers Care Java Programming Professor Name Role Phone Lilly Marcelino MD Primary Care Provider Encounter Details Date Type Department Care Team (Latest Contact Info) Description 05/21/2013 9:54 AM EDT - 05/21/2013 11:59 PM EDT Hospital En[place] [address] CLINIC, Lilly Morton MD [facility] [address] [place] [phone] Discharge Disposition: Home Social History Tobacco Use [...] Diagnosis Comments MAMMO SCREENING CAD BILATERAL Routine 05/21/2013 10:17 AM EDT documented in this encounter Results * Mammo digital bilateral Screening with CAD (05/21/2013 10:17 AM EDT) Anatomical Region Laterality Modality Breast Bilateral Mammography 05/21/2013 10:1 7 AM EDT Narrative 05/22/2013 9:15 AM EDT Reason for Exam: Screening ?? [...] ?? Procedure Note Magaly Manley MD - 05/22/2013 Reason for Exam: Screening Technique: Craniocaudal (CC) [...] to this patient by the breast imaging [facility]. Lilly Marcelino MD IMG MAMMO ORDERABLES documented in this encounter Visit Diagnoses Not on filedocumented in this encounter Care Teams Java Programming Professor Relationship Specialty Start Date End Date Lilly Marcelino MD [facility] [address] [place] [address] PCP - General 12/29/09 09/06/21 documented as of this encounter
--- OUTSIDE RECORDS SUMMARY | 2023-12-06 19:36 | XMS_ITS | Encounter Summary ---
[facility] [place] [address] Care Team Providers Care Radar Systems Engineer Name Role Phone Lilly Marcelino MD Primary Care Provider [phone] Encounter Details Date Type Department Care Team (Late st Contact Info) Description 04/28/2010 10:23 AM EDT - 04/28/2010 11:59 PM EDT Hospital Encounter [facility] Lilly Marcelino MD [address] [place] [address] Discharge Disposition: Home Social History Tobacco Use Types Packs/Day Years Used Date Smoking Tobacco: Never Assessed Sex and Gender Information Value Date Recorded Sex Assigned at Not on file Gender Identity Not on file Sexual Orientation Not on file documented as of this encounter Plan of Treatment Not on file documented as of this encounter Visit Diagnoses Not on filedocumented in this encounter Care Teams Radar Systems Engineer Relationship Specialty Start Date End Date Lilly Marcelino MD [address] [place] [address] PCP - General 12/29/09 09/06/21 documented as of this encounter
--- OUTSIDE RECORDS SUMMARY | 2023-12-06 19:36 | XMS_ITS | Encounter Summary ---
Author Organization [facility] Address [address] [place] [address] Care Team Providers Care Manager Hi Name Role Phone Unavailable Primary Care Provider Unavailabl e Encounter Details Date Type Department Care Team (Late st Contact Info) Description 03/17/2009 Orders Only [facility] Laboratory Services - [facility] ([facility] [address] [place], [place] [address] Gregg Troy, JAMMIE [address] [place] [address] Social History Tobacco Use Types [...] Priority Date/Time Associated Diagnosis Comments CYTOPATHOLOGY Routine 03/17/2009 0:00 EST documented in this encounter Results * CYTOPATHOLOGY (03/17/2009 0:00 EST) Pathology Report: CYTOPATHOLOGY REPORT ? Reports generated via electronic interface contain original data; ? however they are lacking the format of the original report. ? Caution should be taken when reading/interpreti ng unformatted reports. ? Name: ? JEB ROPERA ? Accession #: ? [id number] ? : ? 1960 (Age: 48) ??F ?Collect Date: ? 03/17/2009 ? Location: ? [facility] ? Receive Date: ? 03/18/2009 ? Provider: ?GREGG TROY NP ? Copy to: ? Specimen/Source: ?Pap Test, Cervix/Endocervix, ThinPrep Imaging System ? with manual evaluation ? Last Menstrual Period: ? 1/18/10 ? Other: ? HPVA - HPV testing requested if ASC-US on the current ThinPrep Pap test. ? SPECIMEN ADEQUACY ? Satisfactory for Evaluation ? - transformation zone component absent ? GENERAL CATEGORIZATION ? Negative for Intraepithelial Lesion or Malignancy ? Document reviewed and electronically signed by: ? Mando Sargent, CT(ASCP) ? Report Date: ??03/19/2009 11:43 ? End of Report ? ESTEFANIA FITCH 03/17/2009 03/18/2009 Gregg Troy NP PATHOLOGY ORDERABLES [facility] [address] [place] [address] documented in this encounter Visit Diagnoses Not on filedocumented in this encounter
--- OUTSIDE RECORDS SUMMARY | 2023-12-06 19:36 | XMS_ITS | Encounter Summary ---
Author Organization [facility] Address [address] [place] [address] Care Team Providers Care Assistant To The Director Name Role Phone Unavailable Primary Care Provider Unavailabl e Encounter Details Date Type Department Care Team (Late st Contact Info) Description 06/07/2011 Results Only [facility] - [facility] ([facility]) [address] [place] [address] Gregg Troy, JAMMIE [address] [place] [address] Social History Tobacco Use Types [...] Diagnosis Comments PAP TEST- RESULT ONLY Routine 06/07/2011 0:00 EDT documented in this encounter Results * PAP TEST- RESULT ONLY (06/07/2011 0:00 EDT) Pathology Report: CYTOPATHOLOGY REPORT Reports generated via electronic interface contain original data; however they are lacking the format of the original report. Caution should be taken when reading/interpreti ng unformatted reports. Name: ? NICHOLE ROPER ? Accession #: ? [id number] ? : ? 1960 (Age: 50) ??F ?Collect Date: ? 06/07/2011 ? Location: ? [facility] ? Receive Date: ? 06/10/2011 ? Provider: GREGG TROY PUBLIC WORKS TECHNICIAN Copy to: ? Final Report SPECIMEN ADEQUACY ? Satisfactory for Evaluation - transformation zone component absent GENERAL CATEGORIZATION ? Negative for Intraepithelial Lesion or Malignancy ?? Last Menstural Period: 03/20 Specimen/Source: ??Pap Test, Cervix/Endocervix, ThinPrep Imaging System with manual evaluation Document reviewed and electronically signed by: ? Darrell Leigh, [place](ASCP) ? Report ??Date: 06/14/2011 12:27 HPV with Pap Test ? Date Ordered: ? 06/14/2011 ? Status: ?? Signed Out ?Date Complete: ? 06/16/2011 ? By: ??System Interface ? Date Reported: ? 06/16/2011 ? Interpretation RESULT: Negative for HPV. No E6 or E7 mRNA is detected from HPV types 16,18,31,33,35, 39,45,51,52,56,58, 59,66, and 68 by postal sorting officer mediated amplification. Comments Document reviewed and electronically signed by: ? System Interface ? Report date: 06/16/2011 By the signature above, the attending physician certifies that he/she has personally conducted a gross and/or microscopic examination of the described specimens and rendered or confirmed the above diagnosis. End of Report [facility] 06/07/2011 06/10/2011 Gregg Troy PUBLIC WORKS TECHNICIAN PATHOLOGY ORDERABLES Performing Organization Address City/State/[facility] Co de Phone Number [facility] [address] [place] [address] documented in this encounter Visit Diagnoses Not on filedocumented in this encounter
--- OUTSIDE RECORDS SUMMARY | 2023-12-06 19:36 | XMS_ITS | Encounter Summary ---
Author Organization [facility] Address [address] [place] [address] Care Team Providers Care Astronomy Instructor Name Role Phone Unknown, Provider Primary Care Provider [phone] Encounter Details Date Type Department Care Team (Late st Contact Info) Description 11/01/2018 Results Only [facility] [phone] America Reynoso, [address] [place] [id number] Social History Tobacco Use Types Packs/Day Years [...] Diagnosis Comments PAP TEST- RESULT ONLY Routine 11/01/2018 0:00 EDT documented in this encounter Results * PAP TEST- RESULT ONLY (11/01/2018 0:00 EDT) Pathology Report: CYTOPATHOLOGY REPORT Reports generated via electronic interface contain original data; however they are lacking the format of the original report. Caution should be taken when reading/interpreti ng unformatted reports. Name: ? NICHOLE ROPER ? Accession #: ? [id number] ? : ? 1960 (Age: 57) ??F ?Collect Date: ? 11/01/2018 ? Location: ? [facility] ? Receive Date: ? 11/02/2018 ? Provider: AMERICA BOLANOS DNP Copy to: ? Final Report SPECIMEN ADEQUACY ? Satisfactory for Evaluation - transformation zone component present GENERAL CATEGORIZATION ? Negative for Intraepithelial Lesion or Malignancy ?? Other: Additional clinical information: Z00.00 Z12.4 Z11.51 FAX - Request for Fax report: [phone] Specimen/Source: ??Pap Test, Cervix, ThinPrep Imaging System with manual evaluation Document reviewed and electronically signed by: ? [facility](ASCP) ? Report ??Date: 11/05/2018 09:50 HPV with Pap Test ? Date Ordered: ? 11/05/2018 ? Status: ?? Signed Out ?Date Complete: ? 11/06/2018 ? By: ??System Interface ? Date Reported: ? 11/06/2018 ? Interpretation RESULT: Negative for HPV. No E6 or E7 mRNA is detected from HPV types 16,18,31,33,35, 39,45,51,52,56,58, 59,66, and 68 by care aid mediated amplification. Comments Document reviewed and electronically signed by: ? System Interface ? Report date: 11/06/2018 By the signature above, the attending physician certifies that he/she has personally conducted a gross and/or microscopic examination of the described specimens and rendered or confirmed the above diagnosis. End of Report [facility] 11/01/2018 11/02/2018 America Bolanos DNP PATHOLOGY ORDERAB LES [facility] [address] [place] [address] documented in this encounter Visit Diagnoses Not on filedocumented in this encounter Care Teams Astronomy Instructor Relationship Specialty Start Date End Date Unknown, Provider, PCP - General 09/13/12 documented as of this encounter
--- OUTSIDE RECORDS SUMMARY | 2023-12-06 19:36 | XMS_ITS | Encounter Summary ---
[place] [address] Care Team Providers Care Manager Administrative Services Name Role Phone Lilly Marcelino MD Primary Care Provider [phone] Encounter Details Date Type Department Care Team (Late st Contact Info) Description 04/28/2010 10:45 AM EDT Office Visit Lab [address] [id number] Social History Tobacco Use Types Packs/Day Years Used Date Smoking Tobacco: Never Assessed Sex and Gender Information Value Date Recorded Sex Assigned at Not on file Gender Identity Not on file Sexual Orientation Not on file documented as of this encounter Plan of Treatment Not on file documented as of this encounter Visit Diagnoses Not on filedocumented in this encounter Care Teams Manager Administrative Services Relationship Specialty Start Date End Date Lilly Marcelino MD [address] [place] [address] PCP - General 12/29/09 09/06/21 documented as of this encounter
--- OUTSIDE RECORDS SUMMARY | 2023-12-06 19:36 | XMS_ITS | Encounter Summary ---
[place] [address] Care Team Providers Care Locksmith Name Role Phone Lilly Marcelino MD Primary Care Provider [phone] Encounter Details Date Type Department Care Team (Latest Contact Info) Description 04/25/2012 10:18 AM EDT - 04/25/2012 11:59 PM EDT Hospital [place] [address] CLINIC, Lilly Morton MD [facility] [address] [place] [id number] Discharge Disposition: Home Social History Tobacco Use [...] Diagnosis Comments MAMMO SCREENING CAD BILATERAL Routine 04/25/2012 10:45 AM EDT documented in this encounter Results * Mammo digital bilateral Screening with CAD (04/25/2012 10:45 AM EDT) Anatomical Region Laterality Modality Breast Bilateral Mammography 04/25/2012 10:4 5 AM EDT Narrative 04/26/2012 7:33 PM EDT BILATERAL MAMMOGRAPHY ?? REASON FOR EXAM: Screening ?? TECHNIQUE: Cranio-caudal (CC) and mediolateral oblique (MLO) views of both breasts obtained with direct digital capture. The exam was evaluated by CAD Version 8.3.17. In addition to the routine 2D imaging this exam was also performed with 3D tomographic imaging in MLO and CC projections. ?? FINDINGS: This is a negative mammogram (ACR Category 1). There is a stable fibroglandular pattern without significant change as compared to prior studies. There is no mammographic evidence of cancer. ? The breasts are heterogeneously dense which may limit mammographic sensitivity for the detection of malignancy. ? CONCLUSION ?? This is a NEGATIVE mammogram (ACR Category 1). Routine screening mammography is recommended with the frequency dependent on the patient's age and breast cancer risk factors. ?? A letter has been sent to this patient by the [facility]. Procedure Note Aviva Fregoso MD - 04/26/2012 BILATERAL MAMMOGRAPHY REASON FOR EXAM: Screening TECHNIQUE: [...] cancer. The breasts are heterogeneously dense which may limit mammographicsensitivity for the detection of malignancy. CONCLUSION This is a NEGATIVE mammogram (ACR Category 1). Routine screeningmammography is recommended with the frequency dependent on the patient's age and breastcancer risk factors. A letter has been sent to this patient by the [facility]. Lilly Marcelino MD IMG MAMMO ORDERABLES documented in this encounter Visit Diagnoses Not on filedocumented in this encounter Care Teams Locksmith Relationship Specialty Start Date End Date Lilly Marcelino MD [address] [place] [address] PCP - General 12/29/09 09/06/21 documented as of this encounter
--- OUTSIDE RECORDS SUMMARY | 2023-12-06 19:36 | XMS_ITS | Encounter Summary ---
Author Organization [facility] [place] [address] Care Team Providers Care Restaurant Front Manager Name Role Phone Heena Koo SUPERVISOR OPERATIONS Primary Care Provider [phone] Encounter Details Date Type Department Care Team (Latest Contact Info) Description 09/27/2021 12:29 PM EDT - 09/27/2021 11:59 PM EDT Hospital Encounter Mammography/[place] [address] Heena Koo, SATISH [address] [place] [address] Screening mammogram for breast cancer Discharge Disposition: Home [...] PM EDT Screening mammogram for breast cancer documented in this encounter Results * Mammo Screening Cad and Georges [...] MD Heena Koo APRN IMG MAMMO ORDERABLES documented in this encounter Visit Diagnoses Diagnosis Screening mammogram for breast cancer documented in this encounter Care Teams Restaurant Front Manager Relationship Specialty Start Date End Date Heena Koo [place] [address] [place] [address] PCP - General Family Medicine 09/07/21 documented as of this encounter
--- OUTSIDE RECORDS SUMMARY | 2023-12-06 19:36 | XMS_ITS | Encounter Summary ---
[place] [address] Care Team Providers Care Filling Operator Name Role Phone Lilly Marcelino MD Primary Care Provider [phone] Encounter Details Date Type Department Care Team (Late st Contact Info) Description 04/28/2010 [place] [id number] Lilly Marcelino MD [facility] [address] [facility] [[email or web address]] [address] [place] [address] Social History Tobacco Use Types Packs/Day Years [...] Diagnosis Comments MAMMO SCREENING CAD BILATERAL Routine 04/28/2010 10:50 AM EDT documented in this encounter Results * MAMMO DIGITAL BILATERAL SCREENING WITH CAD (04/28/2010 10:50 AM EDT) Anatomical Region Laterality Modality Breast Bilateral Mammography 04/28/2010 10:5 0 AM EDT Narrative 04/29/2010 10:59 AM EDT Reason for Exam: Screening ?? Technique: Craniocaudal (CC) and Medio-lateral Oblique (MLO) views of both breasts obtained with direct digital capture. The exam was evaluated by CAD version 8.3.17. ?? Findings: ?? This is a negative mammogram (ACR Category 1). ??There is a stable fibroglandular pattern without significant change from prior studies. There is no mammographic evidence of cancer. ??The breasts are extremely dense which greatly limits mammographic sensitivity for the detection of malignancy. ?? CONCLUSION: This is a NEGATIVE mammogram (ACR Category 1). ?? Routine screening mammography is recommended with the frequency dependent upon the patient's age and breast cancer risk factors. A letter has been sent to this patient by the breast imaging center. Procedure Note Fabio Ramirez MD - 04/29/2010 Reason for Exam: Screening Technique: Craniocaudal (CC) and Medio-lateral Oblique (MLO) views of both breasts obtained with direct digital capture. The exam was evaluated by CAD version 8.3.17. Findings: This is a negative mammogram (ACR Category 1). There is a stable fibroglandular pattern without significant change from prior studies. There is no mammographic evidence of cancer. The breasts are extremelydense which greatly limits mammographic sensitivity for the detection ofmalignancy. CONCLUSION: This is a NEGATIVE mammogram (ACR Category 1). Routine screening mammography is recommended with the frequency dependentupon the patient's age and breast cancer risk factors. A letter has been sent to this patient by the breast imaging center. Lilly Marcelino MD IMG MAMMO ORDERABLES documented in this encounter Visit Diagnoses Not on filedocumented in this encounter Care Teams Filling Operator Relationship Specialty Start Date End Date Lilly Marcelino MD [facility] [address] [place] [facility] [[email or web address]] [address] [place] [address] PCP - General 12/29/09 09/06/21 documented as of this encounter
--- OUTSIDE RECORDS SUMMARY | 2023-12-06 19:36 | XMS_ITS | Encounter Summary ---
Author Organization [facility] Address [address] [place] [address] Care Team Providers Care Supervisor Photostat Name Role Phone Unknown, Provider Primary Care Provider [phone] Encounter Details Date Type Department Care Team (Late st Contact Info) Description 09/04/2022 Lab Requisition [facility] Pathology & Laboratory Medicine - [address] [address] Outr Resulting Lab, Provider Social History Tobacco [...] Procedure Name Priority Date/Time Associated Diagnosis Comments LYME AB Routine 09/04/2022 8:50 EDT documented in this encounter Results * LYME AB (09/04/2022 8:50 EDT) Lyme Ab Negative Negative 09/05/2022 10:18 EDT [facility] Blood VENOUS BLOOD / Unknown 09/04/2022 8:50 EDT 09/04/2022 15:40 EDT Provider Outr Resulting Lab IMMUNOLOGY A ND SEROLOGY ORDERABLES [facility] [address] [place] [address] documented in this encounter Visit Diagnoses Not on filedocumented in this encounter Care Teams Supervisor Photostat Relationship Specialty Start Date End Date Unknown, Provider, PCP - General 09/13/12 documented as of this encounter
--- OUTSIDE RECORDS SUMMARY | 2023-12-06 19:36 | XMS_ITS | Clinical Summary ---
Author Organization [facility] Address [address] [place] [address] Care Team Providers Care Coutierier Name Role Phone Unknown, Provider Primary Care Provider [phone] Social History Tobacco Use Types Packs/Day Years Used Date Smoking Tobacco: Never Assessed Sex and Gender Information Value Date Recorded Sex Assigned at Not on file Gender Identity Not on file Sexual Orientation Not on file Plan of Treatment Health Maintenance Due Date Last Done Comments Hepatitis C Screen 1960 RSV Immunization ( o r 60+ Years) (1 - 1-dose 60+ series) 2021 COVID-19 Vaccine (2022-24 season) 2022 Care Teams Coutierier Relationship Specialty Start Date End Date Unknown, Provider, PCP - General 09/13/12
--- OUTSIDE RECORDS SUMMARY | 2023-12-06 19:36 | XMS_ITS | Encounter Summary ---
Author Organization [facility] Address [address] [place] [address] Care Team Providers Care Auto Engine Mechanic Name Role Phone Unknown, Provider Primary Care Provider [phone] Encounter Details Date Type Department Care Team (Late st Contact Info) Description 09/29/2015 Results Only [facility] [phone] Lili Beverly APRN [address] [place], [place] [address] Social History Tobacco Use Types Packs/Day Years [...] Diagnosis Comments PAP TEST- RESULT ONLY Routine 09/29/2015 0:00 EDT documented in this encounter Results * PAP TEST- RESULT ONLY (09/29/2015 0:00 EDT) Pathology Report: CYTOPATHOLOGY REPORT Reports generated via electronic interface contain original data; however they are lacking the format of the original report. Caution should be taken when reading/interpreti ng unformatted reports. Name: ? NICHOLE ROPER ? Accession #: ? [id number] ? : ? 1960 (Age: 54) ??F ?Collect Date: ? 09/29/2015 ? Location: ? [facility] ? Receive Date: ? 09/30/2015 ? Provider: LILI BEVERLY SUPERVISOR SULFURIC ACID PLANT Copy to: ? Final Report SPECIMEN ADEQUACY ? Satisfactory for Evaluation - transformation zone component absent GENERAL CATEGORIZATION ? Negative for Intraepithelial Lesion or Malignancy INTERPRETATION ? Reactive cellular changes associated with inflammation present (includes repair). Specimen/Source: ??Pap Test, Cervix/Endocervix, ThinPrep Imaging System with manual evaluation Document reviewed and electronically signed by: ? REYNA ARGUETA MD ? Report ??Date: 10/07/2015 08:52 HPV with Pap Test ? Date Ordered: ? 10/06/2015 ? Status: ?? Signed Out ?Date Complete: ? 10/09/2015 ? By: ??System Interface ? Date Reported: ? 10/09/2015 ? Interpretation RESULT: Positive for high or intermediate risk HPV. E6 OR E7 mRNA from one or more types of HPV types 16,18,31, 33,35,39,45,51,52, 56,58,59,66, and 68 is detected by farm advisor mediated amplification. High and intermediate risk HPV types are associated with most squamous intraepithelial lesions and cervical cancers. Comments Document reviewed and electronically signed by: ? System Interface ? Report date: 10/09/2015 By the signature above, the attending physician certifies that he/she has personally conducted a gross and/or microscopic examination of the described specimens and rendered or confirmed the above diagnosis. End of Report [facility] 09/29/2015 09/30/2015 Lili Beverly SUPERVISOR SULFURIC ACID PLANT PATHOLOGY ORDERABLES [facility] [address] [place] [address] documented in this encounter Visit Diagnoses Not on filedocumented in this encounter Care Teams Auto Engine Mechanic Relationship Specialty Start Date End Date Unknown, Provider, PCP - General 09/13/12 documented as of this encounter
--- OUTSIDE RECORDS SUMMARY | 2023-12-06 19:36 | XMS_ITS | Encounter Summary ---
Author Organization [facility] [place] [address] Care Team Providers Care Manager Interface Name Role Phone Lilly Marcelino MD Primary Care Provider [phone] Encounter Details Date Type Department Care Team (Latest Contact Info) Description 08/26/2016 8:34 AM EDT - 08/26/2016 11:59 PM EDT Hospital [place] [address] Lili Oglesby, SATISH [address] [address] Visit for screening mammogram Discharge Disposition: Home Social History Tobacco Use [...] MAMMO SCREENING CAD AND GEORGES BILATERAL Routine 08/26/2016 8:48 AM EDT Visit for screening mammogram documented in this encounter Results * Mammo Screen CAD and Georges Bilat (Generic) (08/26/2016 8:48 AM EDT) Anatomical Region Laterality Modality Breast Bilateral Mammography Narrative 08/26/2016 9:12 AM EDT BILATERAL MAMMOGRAPHY REASON FOR EXAM: [...] No mammographic evidence of malignancy. RECOMMENDATION: [employer] and The Society of [...] [facility]. BIRADS CATEGORY 1: NEGATIVE Lili Oglesby APRN IMG MAMMO ORDERABLE S documented in this encounter Visit Diagnoses Diagnosis Visit for screening mammogram Other screening mammogram documented in this encounter Care Teams Manager Interface Relationship Specialty Start Date End Date Lilly Marcelino MD [address] [place] [address] PCP - General 12/29/09 09/06/21 documented as of this encounter
--- OUTSIDE RECORDS SUMMARY | 2023-12-06 19:36 | XMS_ITS | Encounter Summary ---
Author Organization [facility] Address [address] [place] [address] Care Team Providers Care Bell Maker Name Role Phone Unavailable Primary Care Provider Unavailabl e Encounter Details Date Type Department Care Team (Late st Contact Info) Description 01/03/2005 Results Only [facility] [place] [facility] [address] [place] [address] Lilly Mccauley MD [address] [address] Social History Tobacco Use Types [...] Priority Date/Time Associated Diagnosis Comments CYTOPATHOLOGY Routine 01/03/2005 0:00 EST documented in this encounter Results * CYTOPATHOLOGY (01/03/2005 0:00 EST) Pathology Report: CYTOPATHOLOGY REPORT Reports generated via electronic interface contain original data; however they are lacking the format of the original report. Caution should be taken when reading/interpreti ng unformatted reports. Name: ? NICHOLE ROPER ? Accession #: ? [id number] : ? 1960 (Age: 44) ??F ?Collect Date: ? 01/03/2005 Location: ? [facility] ? Receive Date: ? 01/04/2005 Provider: ?LILLY MCCAULEY MD Copy to: ? Specimen/Source: ?ThinPrep Pap Test, Cervix/Endocervix, processed on [employer] ThinPrep Imaging System, with manual evaluation Last Menstrual Period: ? 12/20/04 Other: ? HPVA - HPV testing requested if ASC-US on the current ThinPrep Pap test. ? SPECIMEN ADEQUACY ? Satisfactory for Evaluation - transformation zone component present GENERAL CATEGORIZATION ? Negative for Intraepithelial Lesion or Malignancy ? Document reviewed and electronically signed by: ? YESSICA Lux(ASCP) ? Report Date: ??01/06/2005 15:02 End of Report [facility] 01/03/2005 01/04/2005 Lilly Mccauley MD PATHOLOGY ORDERABLES [facility] [address] [place] [address] documented in this encounter Visit Diagnoses Not on filedocumented in this encounter
--- OUTSIDE RECORDS SUMMARY | 2023-12-06 19:36 | XMS_ITS | Encounter Summary ---
Author Organization [facility] Address [address] [place] [address] Care Team Providers Care Air Cargo Ground Operations Supervisor Name Role Phone Unavailable Primary Care Provider Unavailabl e Encounter Details Date Type Department Care Team (Late st Contact Info) Description 07/17/2003 Results Only [facility] [place] [facility] [address] [place] [address] Darryn Hare MD [address] [place] [address] Social History Tobacco Use Types Packs/Day Years Used Date Smoking Tobacco: Never Assessed Sex and Gender Information Value Date Recorded Sex Assigned at Not on file Gender Identity Not on file Sexual Orientation Not on file documented as of this encounter Plan of Treatment Not on file documented as of this encounter Procedures Procedure Name Priority Date/Time Associated Diagnosis Comments SURGICAL PATHOLOGY Routine 07/17/2003 0:00 EDT documented in this encounter Results * SURGICAL PATHOLOGY (07/17/2003 0:00 EDT) Pathology Report: SURGICAL PATHOLOGY REPORT Reports generated via electronic interface contain original data; however they are lacking the format of the original report. Caution should be taken when reading/interpreti ng unformatted reports. Name: ? NICHOLE ROPER ? Accession #: ? [id number] ? : ? 1960 (Age: 42) ??F ? Collect Date: ? 07/17/2003 ? Location: ? [facility] ? Receive Date: ? 07/18/2003 ? Provider: DARRYN HARE MD Copy to: PHOENIX HAMPTON MD ? Final Pathologic Diagnosis: ? Soft tissue, shoulder, left, mass 4.0 inches x 6.0 inches, excision: - Mature adipose tissue consistent with lipoma. Document reviewed and electronically signed by: Oneal Carrasco MD Report ??Date: 07/22/2003 15:43 By the signature above, the attending physician certifies that he/she has personally conducted a gross and/or microscopic examination of the described specimens and rendered or confirmed the above diagnosis. Specimen(s) Received: ? Mass, left shoulder 4.0 x 6.0 Clinical History: ? Lipoma Gross Description: ? Received in formalin labelled Roper and mass 4.0 x 6.0 left shoulder is a 7.0 x 4.5 x 1.5 cm oglesby-yellow soft lobated 19.5 gram tissue. ??The external surface is inked black and the specimen is serially sectioned to reveal soft, homogeneous and yellow cut surfaces. ??Laborer Electroplating sections are submitted as (A1) to (A3). ??(Dr. Lopez)/[facility] End of Report [facility] 07/17/2003 07/18/2003 14: 51 EDT Darryn Hare MD PATHOLOGY ORDERABLE S [facility] [address] [place] [address] documented in this encounter Visit Diagnoses Not on filedocumented in this encounter
[2023-12-06 19:43] LABS: ALT 34 U/L (14-59); AST 35 U/L (15-37); Albumin 3.6 g/dL (3.4-5.0); Alkaline Phosphatase 82 U/L (46-116); Anion Gap 10.8 mmol/L (3-11); BUN 21 mg/dL (7-18); Bilirubin, Total 0.31 mg/dL (0.2-1.0); CO2 27.2 mmol/L (21.0-32.0); Calcium 10.1 mg/dL (8.5-10.1); Calculated LDL 93 mg/dL (<100); Chloride 109 mmol/L (98-107); Cholesterol 212 mg/dL (<200); Estimated GFR 64.09 (mL/min/1.73m2); Glucose 106 mg/dL (74-106); HDL Cholesterol 108 mg/dL (40-60); Potassium 3.7 mmol/L (3.5-5.1); Sodium 147 mmol/L (136-145); Triglyceride 56 mg/dL (<150)
== END 2023-12-06 19:35 | disposition home or self-care (01) ==
LOC: NCHCN 19:34
PROVIDERS: PCP Nurse Practitioner Family; Visit Provider Nurse Practitioner Family
DX: Z00.00 Encounter for general adult medical examination without abnormal findings (principal)
CPT/HCPCS: 80053; 80061; 85025

== ENCOUNTER 2023-12-12 01:20 | Outpatient (CLI) | payer OTHER, SELFPAY ==
--- NOTE | 2023-12-12 14:19 | DI.MAMMO_ITS ---
Exam(s) MAMMO SCREENING EXAM: MAMMO SCREENING CLINICAL HISTORY: SCREENING, Z12.31 TECHNIQUE: Bilateral full field digital CC and MLO mammographic images were obtained with 3D tomosyn thesis and utilizing computer aided detection (CAD). COMPARISON: Available for comparison. FINDINGS: Masses/Architectural Distortion: None seen. Microcalcifications: No suspicious pleomorphic-type are seen. There are stable calcifications seen in the lower inner quadrant of the left breast. Skin Thickening/Nipple Retraction: None. IMPRESSION: 1. No significant interval change with no specific features of malignancy noted. 2. Unless there is more urgent need, screening mammography is recommended, as per [employer] guidelines. BI-RADS Category 2 - Benign Findings Breast Density - Category C - Heterogeneously dense Breast density category C or D implies that the patient has dense breast tissue. Dense breast tissue is very common and is not abnormal but dense breast tissue can make it harder to find cancer on a ma mmogram. Also, dense breast tissue may increase their breast cancer risk. This information about the result of the mammogram report was provided to the patient to raise their awareness. Use this report when you speak with the patient about their risks for breast cancer, which includes their family hist ory. At that time, you may recommend for more screening tests (Ultrasound or MRI) as they might be us eful based on their risk. A negative radiographic report should not delay biopsy if a dominant or clinically suspicious mass is present. Up to ten percent of cancers are not identified on mammography. A negative report may reinforce clinical impression. Adenosis and dense breasts may obscure an underlying neoplasm. False positive reports average 6 to 10%. Patient will receive a letter notifying them of these results.
== END 2023-12-12 01:40 ==
PROVIDERS: PCP Nurse Practitioner Family; Visit Provider Nurse Practitioner Family
DX: Z12.31 Encounter for screening mammogram for malignant neoplasm of breast (principal); D24.9 Benign neoplasm of unspecified breast; R92.333 Mammographic heterogeneous density, bilateral breasts
CPT/HCPCS: 77063; 77067

== ENCOUNTER 2023-12-18 10:49 | Emergency (ER) | payer OTHER, SELFPAY ==
[2023-12-18] VITALS (15 sets, daily range): BP systolic 112–162; BP diastolic 63–86; PULSE 61–93; RESP 10–23; TEMP 36.8; O2SAT 95–99
--- NOTE | 2023-12-18 11:00 | RT.EKG_ITS ---
APPROVED REPORT Exam: Resting ECG Reason for Exam: abd pain Patient Location: E HR:72 bpm ECG Measurements Heart Rate 72 AXIS AK 154 P 34 QRSd 79 QRS 29 QT 364 T 50 QTc 399 Conclusion Sinus rhythm.\ 72 normal axis no stemi
--- OUTSIDE RECORDS SUMMARY | 2023-12-18 11:05 | XMS_ITS | Encounter Summary ---
[place] [address] Care Team Providers Care Laundry Manager Name Role Phone Lilly Marcelino MD Primary Care Provider [phone] Encounter Details Date Type Department Care Team (Latest Contact Info) Description 08/25/2015 7:51 AM EDT - 08/25/2015 11:59 PM EDT Hospital [place] [address] Lilly Marcelino MD [facility] [address] [place] [facility] [address] [place], [place] [address] Encounter for screening mammogram for malignant neoplasm [...] No mammographic evidence of malignancy. RECOMMENDATION: [employer] and The Society of [...] mammogram documented in this encounter Care Teams Laundry Manager Relationship Specialty Start Date End Date Lilly Marcelino MD [address] [place] [address] [address] [place] [address] PCP - General 12/29/09 09/06/21 documented as of this encounter
--- OUTSIDE RECORDS SUMMARY | 2023-12-18 11:05 | XMS_ITS | Encounter Summary ---
Author Organization [facility] [place] [address] Care Team Providers Care Child Monitor Name Role Phone Lilly Marcelino MD Primary Care Provider [phone] Encounter Details Date Type Department Care Team (Latest Contact Info) Description 08/26/2016 8:34 AM EDT - 08/26/2016 11:59 PM EDT Hospital [place] [address] Lili Oglesby, SATISH [address] [address] Visit for screening mammogram Discharge Disposition: Home [...] No mammographic evidence of malignancy. RECOMMENDATION: [employer] and The Society of [...] mammogram documented in this encounter Care Teams Child Monitor Relationship Specialty Start Date End Date Lilly Marcelino MD [address] [place] [address] PCP - General 12/29/09 09/06/21 documented as of this encounter
--- OUTSIDE RECORDS SUMMARY | 2023-12-18 11:05 | XMS_ITS | Encounter Summary ---
[place] [address] Care Team Providers Care Audit Mgr Name Role Phone Lilly Marcelino MD Primary Care Provider Encounter Details Date Type Department Care Team (Latest Contact Info) Description 04/21/2011 11:06 AM EDT - 04/21/2011 11:59 PM EDT Hospital [place] [address] CLINIC, Lilly Morton MD [facility] [address] [place] [phone] Discharge Disposition: Home Social History Tobacco Use [...] on filedocumented in this encounter Care Teams Audit Mgr Relationship Specialty Start Date End Date Lilly Marcelino MD [address] [place] [address] PCP - General 12/29/09 09/06/21 documented as of this encounter
--- OUTSIDE RECORDS SUMMARY | 2023-12-18 11:05 | XMS_ITS | Encounter Summary ---
[place] [address] Care Team Providers Care Shipper/Receiver Name Role Phone Lilly Marcelino MD Primary Care Provider [phone] Encounter Details Date Type Department Care Team (Late st Contact Info) Description 04/28/2010 [place] [id number] Lilly Marcelino MD [facility] [address] [place] [address] Social History Tobacco Use Types Packs/Day Years [...] on filedocumented in this encounter Care Teams Shipper/Receiver Relationship Specialty Start Date End Date Lilly Marcelino MD [facility] [address] [place] [address] PCP - General 12/29/09 09/06/21 documented as of this encounter
--- OUTSIDE RECORDS SUMMARY | 2023-12-18 11:05 | XMS_ITS | Encounter Summary ---
[place] [address] Care Team Providers Care Drug And Alcohol Counselor Name Role Phone Lilly Marcelino MD Primary Care Provider [phone] Encounter Details Date Type Department Care Team (Latest Contact Info) Description 09/18/2018 8:16 AM EDT - 09/18/2018 11:59 PM EDT Hospital Encounter Mammography/[place] [address] Lilly Marcelino MD [facility] [facility] [facility] [address] [place] [address] Encounter for screening mammogram for breast cancer [...] cancer documented in this encounter Care Teams Drug And Alcohol Counselor Relationship Specialty Start Date End Date Lilly Marcelino MD [facility] [address] [place] [address] PCP - General 12/29/09 09/06/21 documented as of this encounter
--- OUTSIDE RECORDS SUMMARY | 2023-12-18 11:05 | XMS_ITS | Encounter Summary ---
[place] [address] Care Team Providers Care Putty And Caulking Supervisor Name Role Phone Lilly Marcelino MD Primary Care Provider [phone] Encounter Details Date Type Department Care Team (Late st Contact Info) Description 04/28/2010 10:45 AM EDT Office Visit Lab [address], [place] [phone] Social History Tobacco Use Types Packs/Day Years Used Date Smoking Tobacco: Never Assessed Sex and Gender Information Value Date Recorded Sex Assigned at Not on file Gender Identity Not on file Sexual Orientation Not on file documented as of this encounter Plan of Treatment Not on file documented as of this encounter Visit Diagnoses Not on filedocumented in this encounter Care Teams Putty And Caulking Supervisor Relationship Specialty Start Date End Date Lilly Marcelino MD [address] [place] [address] PCP - General 12/29/09 09/06/21 documented as of this encounter
--- OUTSIDE RECORDS SUMMARY | 2023-12-18 11:05 | XMS_ITS | Encounter Summary ---
Author Organization [facility] Address [address] [place] [address] Care Team Providers Care Children'S Institution Attendant Name Role Phone Unknown, Provider Primary Care Provider Unava ilable Encounter Details Date Type Department Care Team (Late st Contact Info) Description 09/29/2015 Results Only [facility] [phone] Lili Beverly, SATISH [address] [facility] [address] [place], [place] [phone] Social History Tobacco Use Types Packs/Day Years Used Date Smoking Tobacco: Never Assessed Comments Unknown Sex and Gender Information Value Date Recorded Sex Assigned at Not on file Legal Sex Female 18:23 EST Gender Identity Not on file Sexual Orientation [...] ? NICHOLE ROPER ? Accession #: ? [id number] ? : ? 1960 (Age: 54) ??F ?Collect Date: ? 09/29/2015 ? Location: ? [facility] ? Receive Date: ? 09/30/2015 ? Provider: LILI BEVERLY WATER QUALITY CONTROL ENGINEER Copy to: ? Final Report SPECIMEN ADEQUACY [...] 33,35,39,45,51,52, 56,58,59,66, and 68 is detected by manager army mediated amplification. High and intermediate risk HPV [...] confirmed the above diagnosis. End of Report [facility] 09/29/2015 09/30/2015 us Lili Beverly WATER QUALITY CONTROL ENGINEER PATHOLOGY ORDERABLES Final Re sult [facility] [address] [place] [address] documented in this encounter Visit Diagnoses Not on filedocumented in this encounter Care Teams Children'S Institution Attendant Relationship Specialty Start Date End Date Unknown, Provider, PCP - General 09/13/12 documented as of this encounter
--- OUTSIDE RECORDS SUMMARY | 2023-12-18 11:05 | XMS_ITS | Encounter Summary ---
Author Organization [facility] Address [address] [place] [address] Care Team Providers Care Rawhide Bone Roller Name Role Phone Unavailable Primary Care Provider Unavailabl e Encounter Details Date Type Department Care Team (Late st Contact Info) Description 09/11/2012 Results Only [facility] Laboratory [facility] - [facility] ([facility]) [address] [place], [place] [address] Albert Hare, DO [address] [facility] [address] [place] [address] Social History Tobacco Use Types [...] ? NICHOLE ROPER ? Accession #: ? [id number] ? : ? 1960 (Age: 51) ??F ? Collect Date: ? 09/11/2012 ? Location: ? [facility] ? Receive Date: ? 09/12/2012 ? Provider: ALBERT HARE DO Copy to: UTE MCCAULEY MD ? Final Pathologic Diagnosis: COLON, POLYP, 40 CM, BIOPSY: - ??Hyperplastic polyp. ??See comment. Comment: ? Deeper levels have been examined. Crystal Flat Grinder sections of this case were reviewed at [...] [facility] 09/11/2012 9:23 EDT 09/12/2012 9:23 EDT us Albert Hare DO PATHOLOGY ORDERABLES Fi nal Result [facility] [address] [place] [address] documented in this encounter Visit Diagnoses Not on filedocumented in this encounter
--- OUTSIDE RECORDS SUMMARY | 2023-12-18 11:05 | XMS_ITS | Encounter Summary ---
Author Organization [facility] Address [address] [place] [address] Care Team Providers Care Professional Driver Name Role Phone Unavailable Primary Care Provider Unavailabl e Encounter Details Date Type Department Care Team (Late st Contact Info) Description 06/07/2011 Results Only [facility] Laboratory Services - [facility] ([facility]) [address] [place], [place] [address] Gregg Kamara, JAMMIE [address] [place] [address] Social History Tobacco Use Types [...] when reading/interpreti ng unformatted reports. Name: ? JACQUELIN NICHOLE ? Accession #: ? [id number] ? : ? 1960 (Age: 50) ??F ?Collect Date: ? 06/07/2011 ? Location: ? [facility] ? Receive Date: ? 06/10/2011 ? Provider: GREGG KAMARA EXHIBITION ORGANISER Copy to: ? Final Report SPECIMEN ADEQUACY [...] types 16,18,31,33,35, 39,45,51,52,56,58, 59,66, and 68 by scraper loader operator mediated amplification. Comments Document reviewed and electronically signed by: ? System Interface ? Report date: 06/16/2011 By the signature above, the attending physician certifies that he/she has personally conducted a gross and/or microscopic examination of the described specimens and rendered or confirmed the above diagnosis. End of Report [facility] 06/07/2011 06/10/2011 us Gregg Kamara NP PATHOLOGY ORDERABLES Final R esult Performing Organization Address City/State/[facility] Co de Phone Number [facility] [address] [place] [address] documented in this encounter Visit Diagnoses Not on filedocumented in this encounter
--- OUTSIDE RECORDS SUMMARY | 2023-12-18 11:05 | XMS_ITS | Encounter Summary ---
Author Organization [facility] Address [address] [place] [address] Care Team Providers Care Site Acquisition Specialist Name Role Phone Unavailable Primary Care Provider Unavailabl e Encounter Details Date Type Department Care Team (Late st Contact Info) Description 03/11/2008 Before PRISM Converted Visit (Maple) [facility] - Maple conversion [address] [place] [address] Gregg Troy, JAMMIE [address] [place] [address] Social History Tobacco Use Types [...] ? ROPER, NICHOLE ? Accession #: ? [id number] ? : ? 1960 (Age: 47) ??F [...] of Report ? [facility] 03/11/2008 03/13/2008 us Gregg Troy COMPRESSOR HOUSE OPERATOR PATHOLOGY ORDERABLES Final R esult [facility] [address] [place] [address] documented in this encounter Visit Diagnoses Not on filedocumented in this encounter
--- OUTSIDE RECORDS SUMMARY | 2023-12-18 11:05 | XMS_ITS | Encounter Summary ---
Author Organization [facility] Address [address] [place] [address] Care Team Providers Care Ice Skating Coach Name Role Phone Unavailable Primary Care Provider Unavailabl e Encounter Details Date Type Department Care Team (Late st Contact Info) Description 06/30/2000 Results Only [facility] conversion [address] [place] [address] Vladimir Chavez MD [address] [facility] [address] [address] Social History Tobacco Use Types [...] ? NICHOLE ROPER ? Accession #: ? [id number] : ? 1960 (Age: 39) ??F ?Collect [...] End of Report [facility] 06/30/2000 07/05/2000 us Vladimir Chavez MD PATHOLOGY ORDERABLES Final Resu lt [facility] [address] [place] [address] documented in this encounter Visit Diagnoses Not on filedocumented in this encounter
--- OUTSIDE RECORDS SUMMARY | 2023-12-18 11:05 | XMS_ITS | Encounter Summary ---
Author Organization [facility] Address [address] [place] [address] Care Team Providers Care Structures Mechanic Name Role Phone Unknown, Provider Primary Care Provider Unava ilable Encounter Details Date Type Department Care Team (Late st Contact Info) Description 09/04/2022 Lab Requisition [facility] Pathology & Laboratory Medicine - [facility] [address] [place], [place] [address] Outr Resulting Lab, Provider Social History Tobacco [...] Lyme Ab Negative Negative 09/05/2022 10:18 EDT [facility] Blood VENOUS BLOOD / Unknown 09/04/2022 8:50 EDT 09/04/2022 15:40 EDT us Provider Outr Resulting Lab IMMUNOLOGY AND SEROL OGY ORDERABLES Final Result [facility] [address] [place] [address] documented in this encounter Visit Diagnoses Not on filedocumented in this encounter Care Teams Structures Mechanic Relationship Specialty Start Date End Date Unknown, Provider, PCP - General 09/13/12 documented as of this encounter
--- OUTSIDE RECORDS SUMMARY | 2023-12-18 11:05 | XMS_ITS | Encounter Summary ---
[place] [address] Care Team Providers Care Ekg Tech Name Role Phone Lilly Marcelino MD Primary Care Provider [phone] Encounter Details Date Type Department Care Team (Latest Contact Info) Description 04/25/2012 10:18 AM EDT - 04/25/2012 11:59 PM EDT Hospital [place] [address] CLINIC, Lilly Morton MD [facility] [address] [place] [phone] Discharge Disposition: Home Social History Tobacco Use [...] on filedocumented in this encounter Care Teams Ekg Tech Relationship Specialty Start Date End Date Lilly Marcelino MD [address] [place] [address] PCP - General 12/29/09 09/06/21 documented as of this encounter
--- OUTSIDE RECORDS SUMMARY | 2023-12-18 11:05 | XMS_ITS | Encounter Summary ---
Author Organization [facility] Address [address] [place] [address] Care Team Providers Care Dough Mixer Helper Name Role Phone Unavailable Primary Care Provider Unavailabl e Encounter Details Date Type Department Care Team (Late st Contact Info) Description 07/23/2012 Results Only [facility] Laboratory Services - [facility] ([facility]) [address] [place], [place] [address] Gregg Kamara, JAMMIE [address] [place] [address] Social History Tobacco Use Types [...] ? JACQUELIN NICHOLE ? Accession #: ? [id number] : ? 1960 (Age: 51) ??F ?Collect Date: ? 07/23/2012 Location: ? [facility] ? Receive Date: ? 07/25/2012 Provider: ?GREGG KAMARA INDUSTRIAL GREEN SYSTEMS DESIGNER Copy to: ? Specimen/Source: ?Pap Test, Cervix/Endocervix, ThinPrep Imaging System with manual evaluation Last Menstrual Period: ? 01/2012 ? SPECIMEN ADEQUACY ? Satisfactory for Evaluation - transformation zone component absent GENERAL CATEGORIZATION ? Negative for Intraepithelial Lesion or Malignancy ? Document reviewed and electronically signed by: ? Aimee García, ALISON(ASCP)(IAC) ? Report Date: ??07/30/2012 11:53 End of Report [facility] 07/23/2012 07/25/2012 us Gregg Kamara INDUSTRIAL GREEN SYSTEMS DESIGNER PATHOLOGY ORDERABLES Final R esult [facility] [address] [place] [address] documented in this encounter Visit Diagnoses Not on filedocumented in this encounter
--- OUTSIDE RECORDS SUMMARY | 2023-12-18 11:05 | XMS_ITS | Encounter Summary ---
Author Organization [facility] Address [address] [place] [address] Care Team Providers Care Ceramist Name Role Phone Unavailable Primary Care Provider Unavailabl e Encounter Details Date Type Department Care Team (Late st Contact Info) Description 03/17/2009 Orders Only [facility] Laboratory Services - [facility] ([facility]) [address] [place], [place] [phone] Gregg Troy, JAMMIE [address] [place] [address] Social History Tobacco Use Types [...] ? ROPER, NICHOLE ? Accession #: ? [id number] ? : ? 1960 (Age: 48) ??F [...] of Report ? [facility] 03/17/2009 03/18/2009 us Gregg Troy PHOTOGRAPHIC PROCESS SCREEN MAKER PATHOLOGY ORDERABLES Final R esult [facility] [address] [place] [address] documented in this encounter Visit Diagnoses Not on filedocumented in this encounter
--- OUTSIDE RECORDS SUMMARY | 2023-12-18 11:05 | XMS_ITS | Encounter Summary ---
Author Organization [facility] Address [address] [place] [address] Care Team Providers Care Transformer Stock Clerk Name Role Phone Unavailable Primary Care Provider Unavailabl e Encounter Details Date Type Department Care Team (Late st Contact Info) Description 03/06/2007 Results Only [facility] - Maple conversion [address] [place] [address] Gregg Troy, JAMMIE [address] [place] [address] Social History Tobacco Use Types [...] ? NICHOLE ROPER ? Accession #: ? [id number] : ? 1960 (Age: 46) ??F ?Collect Date: ? 03/06/2007 Location: ? [facility] ? Receive Date: ? 03/08/2007 Provider: ?GREGG TROY SPRING INTERN Copy to: ? Specimen/Source: ?ThinPrep Pap Test, Cervix/Endocervix, processed on [employer] ThinPrep Imaging System, with manual evaluation Last [...] End of Report [facility] 03/06/2007 03/08/2007 us Gregg Troy SPRING INTERN PATHOLOGY ORDERABLES Final R esult [facility] [address] [place] [address] documented in this encounter Visit Diagnoses Not on filedocumented in this encounter
--- OUTSIDE RECORDS SUMMARY | 2023-12-18 11:05 | XMS_ITS | Encounter Summary ---
[place] [address] Care Team Providers Care Brick Kiln Worker Name Role Phone Lilly Marcelino MD Primary Care Provider [phone] Encounter Details Date Type Department Care Team (Latest Contact Info) Description 05/21/2013 9:54 AM EDT - 05/21/2013 11:59 PM EDT Hospital En[place] [address] CLINIC, Lilly Morton MD [facility] [address] [place] [phone] Discharge Disposition: Home Social History Tobacco Use [...] to this patient by the breast imaging [place]. Lilly Marcelino MD IMG MAMMO ORDERABLES documented in this encounter Visit Diagnoses Not on filedocumented in this encounter Care Teams Brick Kiln Worker Relationship Specialty Start Date End Date Lilly Marcelino MD [facility] [address] [place] [address] PCP - General 12/29/09 09/06/21 documented as of this encounter
--- OUTSIDE RECORDS SUMMARY | 2023-12-18 11:05 | XMS_ITS | Encounter Summary ---
Author Organization [facility] Address [address] [place] [address] Care Team Providers Care Compliance Assistant Name Role Phone Unavailable Primary Care Provider Unavailabl e Encounter Details Date Type Department Care Team (Late st Contact Info) Description 03/09/1999 Results Only [facility] conversion [address] [place] [address] Noni Valdivia, [facility] [address] [place] [address] [place] [address] Social History Tobacco Use Types Packs/Day [...] ? NICHOLE ROPER ? Accession #: ? [id number] : ? 1960 (Age: 38) ??F ?Collect Date: ? 03/09/1999 Location: ?Receive Date: ? 03/09/1999 Provider: ?NONI AMPARO TIPPLE SUPERVISOR Copy to: ?NONI AMPARO TIPPLE SUPERVISOR ? Specimen/Source: ?Siene Maker ThinPrep Last Menstrual Period: ? GYNECOLOGIC ??CYTOPATHOLOGY ??REPORT Name: NICHOLE MERCADO A ? [facility] : 1960 ?? 38Y F ?Client ID: [id number] SS#: ? Clinician: AMPARO TIPPLE SUPERVISOR, NONI ?? Location: [facility] ??Copy to: ?? Specimen: ?Siene Maker ThinPrep ? Source: Cervix/Endocervix ?Collected: 03/05/99 ? [...] Donahue, CT(ASCP) ? Report Date: ?? 03/09/1999 Local [employer] Archived Tests - Final Diagnosis Text Field: Clinical History : ;Pt reports abn pap 3 years ago, we have no results. ? Document reviewed and electronically signed by: ? Conversion ? Report Date: ??03/09/1999 00:00 End of Report [facility] 03/09/1999 14:0 9 EST 03/09/1999 14:10 EST us Noni Valdivia TIPPLE SUPERVISOR PATHOLOGY ORDERABLES Final R esult [facility] [address] [place] [address] documented in this encounter Visit Diagnoses Not on filedocumented in this encounter
--- OUTSIDE RECORDS SUMMARY | 2023-12-18 11:05 | XMS_ITS | Encounter Summary ---
Author Organization [facility] [place] [address] Care Team Providers Care Laser Cutter Name Role Phone Heena Koo PROCUREMENT REPRESENTATIVE Primary Care Provider [phone] Encounter Details Date Type Department Care Team (Latest Contact Info) Description 09/27/2021 12:29 PM EDT - 09/27/2021 11:59 PM EDT Hospital Encounter Mammography/[place] [address] Heena Koo, SATISH [address] [place] [address] Screening mammogram for breast cancer Discharge Disposition: [...] cancer documented in this encounter Care Teams Laser Cutter Relationship Specialty Start Date End Date Heena Koo APR[place] [address] PCP - General Family Medicine 09/07/21 documented as of this encounter
--- OUTSIDE RECORDS SUMMARY | 2023-12-18 11:05 | XMS_ITS | Encounter Summary ---
Author Organization [facility] Address [address] [place] [address] Care Team Providers Care Er Registrar Name Role Phone Unknown, Provider Primary Care Provider Unava ilable Encounter Details Date Type Department Care Team (Late st Contact Info) Description 11/01/2018 Results Only [facility] [phone] America Reynoso, DNP [address] [place] [id number] Social History Tobacco Use Types Packs/Day Years [...] ? NICHOLE ROPER ? Accession #: ? [id number] ? : ? 1960 (Age: 57) ??F [...] Z11.51 FAX - Request for Fax report: [phone] Specimen/Source: ??Pap Test, Cervix, ThinPrep Imaging System with manual evaluation Document reviewed and electronically signed by: ? ALISON Evans(ASCP) ? Report ??Date: 11/05/2018 09:50 HPV with Pap Test ? Date Ordered: ? 11/05/2018 ? Status: ?? Signed Out ?Date Complete: ? 11/06/2018 ? By: ??System Interface ? Date Reported: ? 11/06/2018 ? Interpretation RESULT: Negative for HPV. No E6 or E7 mRNA is detected from HPV types 16,18,31,33,35, 39,45,51,52,56,58, 59,66, and 68 by glassine machine tender mediated amplification. Comments Document reviewed and electronically signed by: ? System Interface ? Report date: 11/06/2018 By the signature above, the attending physician certifies that he/she has personally conducted a gross and/or microscopic examination of the described specimens and rendered or confirmed the above diagnosis. End of Report [facility] 11/01/2018 11/02/2018 us America Bolanos DNP PATHOLOGY ORDERABLES Concepción serna Result [facility] [address] [place] [address] documented in this encounter Visit Diagnoses Not on filedocumented in this encounter Care Teams Er Registrar Relationship Specialty Start Date End Date Unknown, Provider, PCP - General 09/13/12 documented as of this encounter
--- OUTSIDE RECORDS SUMMARY | 2023-12-18 11:05 | XMS_ITS | Encounter Summary ---
Author Organization [facility] Address [address] [place] [address] Care Team Providers Care Superior Court Judge Name Role Phone Unavailable Primary Care Provider Unavailabl e Encounter Details Date Type Department Care Team (Late st Contact Info) Description 12/30/[address] [facility] - [place] conversion [address] [place] [address] Lilly Mccauley MD [address] [address] Social History Tobacco Use Types [...] ? NICHOLE ROPER ? Accession #: ? [id number] : ? 1960 (Age: 43) ??F ?Collect [...] by: ? ALISON Alcocer(ASCP) ? Report Date: ??01/09/2004 09:28 End of Report [facility] 12/30/2003 01/02/2004 us Lilly Mccauley MD PATHOLOGY ORDERABLES Final Resul t [facility] FIT[facility] [address] [place] [address] documented in this encounter Visit Diagnoses Not on filedocumented in this encounter
--- OUTSIDE RECORDS SUMMARY | 2023-12-18 11:05 | XMS_ITS | Referral Summary ---
Author Organization [facility] Address [address] [place] [address] Care Team Providers Care Cloak Room Attendant Name Role Phone Unknown, Provider Primary Care Provider Unava ilable Social History Tobacco Use Types Packs/Day Years Used Date Smoking Tobacco: Never Assessed Comments Unknown Sex and Gender Information Value Date Recorded Sex Assigned at Not on file Legal Sex Female 18:23 EST Gender Identity Not on file Sexual Orientation Not on file Plan of Treatment Not on file Insurance MVP Care Teams Cloak Room Attendant Relationship Specialty Start Date End Date Unknown, Provider, PCP - General 09/13/12
--- OUTSIDE RECORDS SUMMARY | 2023-12-18 11:05 | XMS_ITS | Encounter Summary ---
[place] [address] Care Team Providers Care Olap Developer Name Role Phone Lilly Marcelino MD Primary Care Provider [phone] Encounter Details Date Type Department Care Team (Latest Contact Info) Description 05/20/2014 9:48 AM EDT - 05/20/2014 11:59 PM EDT Hospital [place] [address] CLINIC, Lilly Morton MD [facility] [address] [place] [address] [phone] Discharge Disposition: Home Social History Tobacco Use [...] breast imaging center. ?? Procedure Note Magaly Manlye MD - 05/21/2014 Reason for Exam: Screening [...] to this patient by the [facility] [place]. Ely Beltre APRN IMG MAMMO ORDERABL ES documented in this encounter Visit Diagnoses Not on filedocumented in this encounter Care Teams Olap Developer Relationship Specialty Start Date End Date Lilly Marcelino MD [address] [place] [address] PCP - General 12/29/09 09/06/21 documented as of this encounter
--- OUTSIDE RECORDS SUMMARY | 2023-12-18 11:05 | XMS_ITS | Encounter Summary ---
Author Organization [facility] Address [address] [place] [address] Care Team Providers Care Anesthesiologists' Assistant Name Role Phone Unknown, Provider Primary Care Provider Unava ilable Encounter Details Date Type Department Care Team (Late st Contact Info) Description 09/16/2019 Lab Requisition [facility] Pathology & Laboratory Medicine - [address] [address] Outr Resulting Lab, Provider Social History Tobacco [...] rt-PCR Result NEGATIVE Negative 09/17/2019 12:54 EDT [facility] Comment: 2019-novel Coronavirus (2019-nCoV) not [...] in accordance with CLIA regulations, College [employer] (CAP) guidelines (Apr 25, 2019), and FDA guidance (Apr 06, 2019). This test is only for use under the Food and Drug Administration's Emergency Use Authorization. Swab ENTIRE NASOPHARYNX / Unknown 09/16/2019 9:16 EDT 09/16/2019 15:13 EDT us Provider Outr Resulting Lab MICROBIOLOGY - GENER AL ORDERABLES Final Result [facility] [place] * COVID-19 TESTING (09/16/2019 9:16 EDT) COVID-19 rt-PCR Result NEGATIVE Negative 09/17/2019 14:24 EDT [facility] Comment: 2019-novel Coronavirus (2019-nCoV) not detected [...] in accordance with CLIA regulations, College of [place] (CAP) guidelines (Apr 25, 2019), and FDA guidance (Apr 06, 2019). This test is only for use under the Food and Drug Administration's Emergency Use Authorization. Performing Lab [facility] 09/17/2019 14:24 EDT [facility] Swab 09/16/2019 9:16 EDT 09/16/2019 15:13 EDT us Provider Outr Resulting Lab MICROBIOLOGY - GENER AL ORDERABLES Final Result [facility] [address] [place] [address] [facility] [place], [place] documented in this encounter Visit Diagnoses Not on filedocumented in this encounter Care Teams Anesthesiologists' Assistant Relationship Specialty Start Date End Date Unknown, Provider, PCP - General 09/13/12 documented as of this encounter
--- OUTSIDE RECORDS SUMMARY | 2023-12-18 11:05 | XMS_ITS | Encounter Summary ---
Author Organization [facility] Address [address] [place] [address] Care Team Providers Care Premium Service Representative Name Role Phone Unavailable Primary Care Provider Unavailabl e Encounter Details Date Type Department Care Team (Late st Contact Info) Description 07/17/2003 Results Only [facility] [place] conversion [address] [place] [address] Darryn Hare MD [address] [place] [address] Social History Tobacco Use Types Packs/Day Years [...] ? NICHOLE ROPER ? Accession #: ? [id number] ? : ? 1960 (Age: 42) ??F [...] reveal soft, homogeneous and yellow cut surfaces. ??Fabrication Lead sections are submitted as (A1) to (A3). ??(Dr. Lopez)/[facility] End of Report ESTEFANIA FITCH 07/17/2003 07/18/2003 14: 51 EDT us Darryn Hare MD PATHOLOGY ORDERABLES Final Result [facility] [address] [place] [address] documented in this encounter Visit Diagnoses Not on filedocumented in this encounter
--- OUTSIDE RECORDS SUMMARY | 2023-12-18 11:05 | XMS_ITS | Encounter Summary ---
Author Organization [facility] Address [address] [place] [address] Care Team Providers Care Medical Reimbursement Specialist Name Role Phone Unknown, Provider Primary Care Provider Unava ilable Encounter Details Date Type Department Care Team (Late st Contact Info) Description 07/10/2023 Lab Requisition [facility] Pathology & Laboratory Medicine - [address] [address] Suresh Machado MD [address] [place] [address], [address] [place] [address] Encounter for screening for malignant neoplasm of [...] management options, if applicable. 07/12/2023 17:05 EDT [facility] Final Diagnosis A. COLON, 75 CMS, POLYP, BIOPSY: - Colonic mucosa with no significant diagnostic abnormalities. - No definite polyp identified. - Benign lymphoid aggregate noted. - Deeper sections x3 examined. B. COLON, 70 CMS, POLYP, BIOPSY: - Sessile serrated adenoma. - Deeper sections x3 examined. C. COLON, 30 CMS, POLYPS X2, BIOPSY: - Hyperplastic polyps. 07/12/2023 17:05 [facility] Attestation By the signature below, the attending physician certifies that they have 1) personally conducted a gross and/or microscopic examination of the described specimen(s), and/or personally interpreted the results of laboratory testing of the described specimen(s), and 2) personally rendered or confirmed the above diagnosis. 07/12/2023 17:05 [facility] at 1705 Clinical History Colorectal cancer screening 07/12/2023 17:05 [facility] Gross Description A. Received in [...] C1. Kenzie Bolanos 07/11/2023 9:31 07/12/2023 17:05 [facility] Performing Lab [facility] 07/12/2023 17:05 [facility] Scanned Images 07/12/2023 17:05 [facility] Tissue POLYP OF COLON / Unknown 07/10/2023 13:31 EDT 07/10/2023 22:57 EDT Tissue specimen (specimen) POLYP OF COLON / Unknown 07/10/2023 13:31 EDT 07/10/2023 22:57 EDT Tissue specimen (specimen) POLYP OF COLON / Unknown 07/10/2023 13:31 EDT 07/10/2023 22:57 EDT us Suresh Machado MD PATHOLOGY ORDERABLES Final Resu lt [facility] [address] [place] [id number] documented in this encounter Visit Diagnoses Diagnosis Encounter for screening for malignant neoplasm of colon Special screening for malignant neoplasms, colon documented in this encounter Care Teams Medical Reimbursement Specialist Relationship Specialty Start Date End Date Unknown, Provider, PCP - General 09/13/12 documented as of this encounter
--- OUTSIDE RECORDS SUMMARY | 2023-12-18 11:05 | XMS_ITS | Clinical Summary ---
Author Organization [facility] [place] [address] Care Team Providers Care Sole Scraper Name Role Phone Heena Koo APRN Primary Care Provider [phone] Family History Medical History Relation Comments Breast [...] Additional history exists Covid-19 Vaccine ( - 2023-2 5 season) 2023 Influenza (Flu) vaccine (1 o [...] Recently Relevant to Health Maintenance Care Teams Sole Scraper Relationship Specialty Start Date End Date Heena Koo APRN [facility] [place] [address] PCP - General Family Medicine 09/07/21
--- OUTSIDE RECORDS SUMMARY | 2023-12-18 11:05 | XMS_ITS | Encounter Summary ---
Author Organization [facility] [place] [place] [address] Care Team Providers Care Materials Management Clerk Name Role Phone Lilly Marcelino MD Primary Care Provider [phone] Encounter Details Date Type Department Care Team (Late st Contact Info) Description 04/28/2010 10:23 AM EDT - 04/28/2010 11:59 PM EDT Hospital Encounter [facility] Lilly Marcelino MD [address] [place] [address] Discharge Disposition: Home Social History Tobacco Use [...] on filedocumented in this encounter Care Teams Materials Management Clerk Relationship Specialty Start Date End Date Lilly Marcelino MD [address] [place] [address] PCP - General 12/29/09 09/06/21 documented as of this encounter
--- OUTSIDE RECORDS SUMMARY | 2023-12-18 11:05 | XMS_ITS | Clinical Summary ---
Author Organization [facility] Address [address] [place] [address] Care Team Providers Care Brazer Resistance Name Role Phone Unknown, Provider Primary Care [...] - 1-dose 60+ series) 2021 COVID-19 Vaccine (2022- season) 2022 Insurance P Care Teams Brazer Resistance Relationship Specialty Start Date End Date Unknown, Provider, PCP - General 09/13/12
--- OUTSIDE RECORDS SUMMARY | 2023-12-18 11:05 | XMS_ITS | Encounter Summary ---
Author Organization [facility] Address [address] [place] [address] Care Team Providers Care Agricultural Inspector Name Role Phone Unavailable Primary Care Provider Unavailabl e Encounter Details Date Type Department Care Team (Late st Contact Info) Description 01/20/[address] [facility] [place] conversion [address] [place] [address] Gregg Troy, JAMMIE [address] [place] [address] Social History Tobacco Use Types [...] ? NICHOLE ROPER ? Accession #: ? [id number] : ? 1960 (Age: 45) ??F ?Collect Date: ? 01/20/2006 Location: ? [facility] ? Receive Date: ? 01/24/2006 Provider: ?GREGG TROY BLUE CRABBER Copy to: ? Specimen/Source: ?ThinPrep Pap Test, Cervix/Endocervix, processed on [employer]quisition ThinPrep Imaging System, with manual evaluation Last [...] End of Report ESTEF[facility]IA FITCH 01/20/2006 01/24/2006 us Gregg Troy NP PATHOLOGY ORDERABLES Final R esult ESTEFANIA FITCH [address] [place] [address] documented in this encounter Visit Diagnoses Not on filedocumented in this encounter
--- OUTSIDE RECORDS SUMMARY | 2023-12-18 11:05 | XMS_ITS | Encounter Summary ---
Author Organization [facility] Address [address] [place] [address] Care Team Providers Care Shoder Filler Name Role Phone Unavailable Primary Care Provider Unavailabl e Encounter Details Date Type Department Care Team (Late st Contact Info) Description 01/03/2005 Results Only [facility] [place] [facility] [address] [place] [address] Lilly Mccauley MD [address] [address] Social History Tobacco Use Types [...] ? NICHOLE ROPER ? Accession #: ? [id number] : ? 1960 (Age: 44) ??F ?Collect Date: ? 01/03/2005 Location: ? [facility] ? Receive Date: ? 01/04/2005 Provider: ?LILLY MCCAULEY MD Copy to: ? Specimen/Source: ?ThinPrep Pap Test, Cervix/Endocervix, processed on [employer] ThinPrep Imaging System, with manual evaluation Last [...] End of Report ESTEFANIA FITCH 01/03/2005 01/04/2005 us Lilly Mccauley MD PATHOLOGY ORDERABLES Final Resul t ESTEFANIA FITCH [address] [place] [address] documented in this encounter Visit Diagnoses Not on filedocumented in this encounter
--- NOTE | 2023-12-18 11:14 | ED.GENADUL_ITS ---
Discharge Plan Disposition Patient Disposition: Home Condition: Stable Discharge Details Clinical Impression: Acute chest wall pain Primary Care Provider: SWAPNA CANCINO ED Provider: Charles Bruno Home Meds and New Rx's Prescriptions: New lidocaine [Lidoderm] 5 % adhesive patch,medicated 1 patch topical DAILY Qty: 15 0RF Rx Instructions: leave on most painful area for up to 12 hrs No Action levalbuterol HCl 1.25 MG/3 ML solution for nebulization 1.25 mg Inhalation PRN PRN lisinopril 10 mg tablet 20 mg PO DAILY simvastatin 40 mg tablet 40 mg PO QPM hydrochlorothiazide 12.5 mg tablet 12.5 mg PO QAM albuterol sulfate 90 mcg/actuation HFA aerosol inhaler 2 puff inhalation Q6H PRN escitalopram oxalate [Lexapro] 10 mg tablet 20 mg PO DAILY Rx Instructions: cross titrate with celexa as instructed citalopram 20 mg tablet 20 mg PO DAILY Rx Instructions: cross titrate with lexapro as instructed calcium carb,gluc-mag gluc,ox 500 mg calcium -250 mg tablet 1 tab PO DAILY loratadine [Allergy Relief (loratadine)] 10 mg tablet 10 mg PO DAILY aspirin [Aspir-81] 81 MG tablet,delayed release (DR/EC) 81 mg PO DAILY bupropion HCl [Wellbutrin] 100 MG tablet 100 mg PO BID Multi For Her 50 Plus 400-80 mcg Capsule 1 tab PO DAILY Discharge Instructions Instructions: Chest pain Additional Instructions: * no signs of pneumonia or heart problems causing your pain * treat with motrin, tylenol and pain patch * if symptoms continue please follow up with your PCP HPI General Date/Time Provider Initiated Documentation: 12/18/23 10:57 . Limitations to Documentation: no limitations . Information obtained by: patient . HPI Narrative: 62-year-old female without significant past medical history, does vaptrace presents for evaluation of left-sided rib pain. Reports that symptoms started 3 days ago. Has been constant. Reports tenderness to touch over that area. Worse with deep breath or movement. Denies any trauma falls or significant coughing that preceded the onset of symptoms. Related Data Home Medications ?Medication ?Instructions ?Recorded ?Confirmed levalbuterol HCl 1.25 mg/3 mL 1.25 mg inhalation PRN PRN 08/27/12 12/18/23 solution for nebulization aspirin 81 mg tablet,delayed 81 mg PO DAILY 11/28/14 12/18/23 release (Aspir-) bupropion HCl 100 mg tablet 100 mg PO BID 11/28/14 12/18/23 (Wellbutrin) bucyvsbdkcqk-znzzeizb-eassz acid 1 tab PO DAILY 01/08/18 12/18/23 400 mcg-vitamin K 80 mcg capsule (Multi For Her 50 Plus) albuterol sulfate 90 mcg/actuation 2 puff inhalation Q6H PRN 02/27/23 12/18/23 aerosol inhaler calcium 500 mg 1 tab PO DAILY 02/27/23 12/18/23 (carb,gluconate)-magnesium 250 mg (gluc,oxide) tablet citalopram 20 mg tablet 20 mg PO DAILY 02/27/23 12/18/23 escitalopram oxalate 10 mg tablet 20 mg PO DAILY 02/27/23 12/18/23 (Lexapro) hydrochlorothiazide 12.5 mg tablet 12.5 mg PO QAM 02/27/23 12/18/23 lisinopril 10 mg tablet 20 mg PO DAILY 02/27/23 12/18/23 loratadine 10 mg tablet (Allergy 10 mg PO DAILY 02/27/23 12/18/23 Relief (loratadine)) simvastatin 40 mg tablet 40 mg PO QPM 02/27/23 12/18/23 lidocaine 5 % topical patch 1 patch topical DAILY #15 ea 12/18/23 (Lidoderm) Previous Rx's ?Medication ?Instructions ?Recorded lidocaine 5 % topical patch 1 patch topical DAILY #15 ea 12/18/23 (Lidoderm) Allergies Allergy/AdvReac Type Severity Reaction Status Date / Time erythromycin base AdvReac Nausea Verified 12/18/23 10:57 General Stated Complaint: Orthopedic HEATH: 3 Exam Narrative Exam Narrative: Review of Systems: All systems reviewed & are unremarkable except as noted in HPI and below Well-developed, no acute distress NCAT No murmur RRR Unlabored respiratory effort clear bilaterally Tenderness along the left lateral chest, no overlying skin change Nondistended abdomen Extremities w/o edema no focal neurologic deficits Course Vital Signs Vital signs: Vital Signs Temperature 36.8 C 12/18/23 10:52 Pulse 93 H 12/18/23 10:52 Respiratory Rate 20 12/18/23 10:52 Blood Pressure 112/63 12/18/23 10:52 Pulse Oximetry 96 12/18/23 10:52 Temperature 36.8 C 12/18/23 10:52 Pulse 93 H 12/18/23 10:52 Respiratory Rate 20 12/18/23 10:52 Respiratory Effort Normal 12/18/23 10:56 Blood Pressure 112/63 12/18/23 10:52 Blood Pressure Position Sitting 12/18/23 10:52 Pulse Oximetry 96 12/18/23 10:52 Oxygen Delivery Method Room Air 12/18/23 10:52 Oxygen Flow Rate 0 12/18/23 10:52 Pain Level 7 12/18/23 10:52 Medical Decision Making Emergent evaluation of left-sided chest wall pain. The patient does not endorse any trauma falls or significant cough that may have been caused to this pain. She has cardiac risk factors of age and smoking. She does not have significantly elevated blood pressure though she is on lisinopril and simvastatin. I am concerned that this could be the an anginal equivalent or atypical cardiac chest pain. Will get EKG and cardiac biomarkers. Also consider pneumonia. Will get chest imaging. EKG reviewed and independently interpreted: Sinus 72 normal axis, no STEMI or acute ischemic changes. Lab work was reviewed no leukocytosis or anemia. No significant electrolyte derangement. Creatinine mildly elevated at 1.2 which is slightly above the patient's baseline. She has some mild hyperglycemia without evidence of DKA. Serial troponins are not elevated and are flat. Her chest x- ray was reviewed, there is no evidence of pneumonia or rib fracture. Given more significant life-threatening etiologies have been evaluated for mild alcohol withdrawal patient is stable for discharge home with recommendations for symptomatic support including Motrin Tylenol Lidoderm patch which was prescribed to the patient. Return precautions advised. Recommend follow-up with PCP as needed. Quality:SDOH Health Related Social Needs: No Data to Display PFSH All Active Problems (Updated 12/18/23 @ 12:43 by Charles Bruno MD) Acute chest wall pain (Acute) Hyperplastic colon polyp (Acute ~07/10/23) Sessile serrated polyp of colon (Acute ~07/10/23) Encounter for screening colonoscopy (Acute) Medical History Asthma Fibroid Hypertension COPD (chronic obstructive pulmonary disease) Pt. states she did the test and she ended up not having it but has asthma Nicotine dependence Transition to vaping approx 4 years ago. 40+ pack year history. Anxiety and depression Hyperlipidemia Seasonal allergies Alcohol dependence, continuous 3 beers nightly, and greater than 3 beers/drinks 2-3 times a week Elevated liver function tests Blood glucose elevated Surgical History History of colonoscopy (~07/2023) Social History Smoking/Tobacco Use Status: Current every day Tobacco Type: e-cigarettes Smoking risk assessment performed?: Yes Alcohol Intake: current Alcohol Intake frequency: 0-2 drinks per day Drug use: Never Substance use type: does not use Housing: house Do you feel safe at home: Yes Do you feel safe in your relationship?: Yes
[2023-12-18] MEDS: Aspirin 325 MG TAB PO (11:20)
[2023-12-18 11:34] LABS: Abs Immature Grans 0.02 10^3/uL (0.0-0.06); Absolute Basophil Count 0.05 10^3/uL (0.0-0.2); Absolute Eosinophil Count 0.22 10^3/uL (0.0-0.7); Absolute Lymphocyte Count 1.27 10^3/uL (1.2-3.4); Absolute Monocyte Count 0.79 10^3/uL (0.1-0.8); Absolute Neutrophil Count 5.17 10^3/uL (1.2-6.7); Basophils % 0.7 %; Eosinophils % 2.9 %; HCT 40.1 % (36.0-46.0); HGB 13.3 g/dL (11.2-15.7); Immature Grans % 0.3 %; Lymphocytes % 16.9 %; MCH 31.9 pg (27.0-33.0); MCHC 33.2 % (32.0-36.0); MCV 96 fL (80-95); MPV 9.8 fL (8.0-11.0); Monocytes % 10.5 %; Neutrophils % 68.7 %; Platelet Count 230 10^3/uL (130-400); RBC 4.17 10^6/uL (3.93-5.22); RDW 13.9 % (11.7-14.6); RDW-SD 49.3 fL; WBC 7.52 10^3/uL (4.4-10.8)
--- NOTE | 2023-12-18 11:47 | DI.RAD_ITS ---
Exam(s) XR CHEST 2V PA LATERAL EXAM: XR CHEST 2V PA LATERAL CLINICAL HISTORY: chest pain TECHNIQUE: 2D digital imaging was performed. Two views. COMPARISON: CR XR ribs LT w PA lat chest from 03/01/[address] CHEST LUNG CANCER SCREEN from 01/02/2023 FINDINGS: HEART: Normal size. Aorta: Not dilated. PULMONARY VASCULATURE: Normal. MEDIASTINUM: Unremarkable. LUNGS: Clear. PLEURAL SPACE: No pleural effusion or pneumothorax. BONE:Old left upper rib fractures SOFT TISSUES: Unremarkable. IMPRESSION: No acute abnormality. DATA REPOSITORY: RADIATION DOSE DELIVERED:
[2023-12-18 11:53] LABS: ALT 29 U/L (14-59); AST 28 U/L (15-37); Albumin 3.9 g/dL (3.4-5.0); Alkaline Phosphatase 96 U/L (46-116); BUN 16 mg/dL (7-18); Bilirubin, Total 0.36 mg/dL (0.2-1.0); CREATININE 1.2 mg/dL (0.55-1.02); Chloride 106 mmol/L (98-107); Glucose 126 mg/dL (74-106); Magnesium 2.2 mg/dL (1.8-2.4); Potassium 4.1 mmol/L (3.5-5.1); Sodium 144 mmol/L (136-145); Total Protein 7.6 g/dL (6.4-8.2); Troponin I 5 ng/L (<or=51)
[2023-12-18] MEDS: Lidocaine 5% Patch 1 PATCH TP (12:10)
[2023-12-18 12:38] LABS: Troponin I 6 ng/L (<or=51)
== END 2023-12-18 12:53 | disposition home or self-care (01) ==
PROVIDERS: Emergency Provider Emergency Medicine; PCP Nurse Practitioner Family
DX: R07.89 Other chest pain (principal); I10 Essential (primary) hypertension; E78.5 Hyperlipidemia, unspecified; F17.290 Nicotine dependence, other tobacco product, uncomplicated; Z79.82 Long term (current) use of aspirin
CPT/HCPCS: 36415; 80053; 93005; 99284; 71046; 83735; 84484; 85025; 93010; 99283

== ENCOUNTER 2024-02-05 17:47 | Outpatient (REF) | payer OTHER, SELFPAY ==
--- NOTE | 2024-02-05 14:30 | PAPFT_PTH ---
PATIENT: Nichole Heller [facility] U#:[id number] AGE/SX: 63/F ROOM: RE02/05/[address]: Lilly Marcelino : 1960 BED: DIS: 02/05/2024 SPEC #: [id number] RECD: 02/05/24 18:30 STATUS: OLGA REQ #: [id number] LILI: 02/05/24 14:[address]: Lilly Marcelino DEPT: [facility] Cytology RECD BY: Diana Akhtar ENTERED: 02/05/24 18:30 SP TYPE: PAPFT JARED DR: SWAPNA CANCINO, JAMMIE Tissues: 1 - CX/ENDOCX FOR PAP SMEARS Procedures: PAP THIN PREP/UVM Screening HPV DNA PROBE Comments: [id number] (HPV 16 & 18/45) (CHLAMYDIA/GC)
--- OUTSIDE RECORDS SUMMARY | 2024-02-05 17:49 | XMS_ITS | Encounter Summary ---
Author Organization [facility] Address [address] [place] [address] Care Team Providers Care Car Cooper Name Role Phone Unavailable Primary Care Provider Unavailabl e Encounter Details Date Type Department Care Team (Late st Contact Info) Description 06/30/2000 Results Only [facility] [place] conversion [address] [place] [address] Vladimir Chavez MD [address] [address] Social History Tobacco Use Types [...] ? NICHOLE ROPER ? Accession #: ? [id number] : ? 1960 (Age: 39) ??F ?Collect [...] ORDERABLES Final Resu lt ESTEFANIA FITCH [address] [place] [address] documented in this encounter Visit Diagnoses Not on filedocumented in this encounter
--- OUTSIDE RECORDS SUMMARY | 2024-02-05 17:49 | XMS_ITS | Encounter Summary ---
Author Organization [facility] Address [address] [place] [address] Care Team Providers Care Seed Mill Superintendent Name Role Phone Jadyn Ortega MD Primary Care Provider Encounter Details Date Type Department Care Team (Late st Contact Info) Description 09/16/2019 Lab Requisition [facility] Pathology & Laboratory Medicine - [address] [id number] Outr Resulting Lab, Provider Social History Tobacco [...] rt-PCR Result NEGATIVE Negative 09/17/2019 12:54 EDT [facility] Comment: 2019-novel Coronavirus (2019-nCoV) not [...] in accordance with CLIA regulations, [employer] of [place] Citizen Pathologists (CAP) guidelines (Apr 25, 2019), and FDA guidance (Apr 06, 2019). This test is only for use under the Food and Drug Administration's Emergency Use Authorization. Swab ENTIRE NASOPHARYNX / Unknown 09/16/2019 9:16 EDT 09/16/2019 15:13 EDT us Provider Outr Resulting Lab MICROBIOLOGY - GENER AL ORDERABLES Final Result [facility] [place], [place] * COVID-19 TESTING (09/16/2019 9:16 EDT) COVID-19 rt-PCR Result NEGATIVE Negative 09/17/2019 14:24 EDT [facility] Comment: 2019-novel Coronavirus (2019-nCoV) not [...] in accordance with CLIA regulations, [employer] [place] Citizen Pathologists (CAP) guidelines (Apr 25, 2019), and FDA guidance (Apr 06, 2019). This test is only for use under the Food and Drug Administration's Emergency Use Authorization. Performing Lab [facility] 09/17/2019 14:24 EDT [facility] Swab 09/16/2019 9:16 EDT 09/16/2019 15:13 EDT us Provider Outr Resulting Lab MICROBIOLOGY - GENER AL ORDERABLES Final Result [facility] [address] [place], [place] [address] [place] [address] LABORATORY [place], [place] documented in this encounter Visit Diagnoses Not on filedocumented in this encounter Care Teams Seed Mill Superintendent Relationship Specialty Start Date End Date Jadyn Ortega MD PCP - General 09/13/12 documented as of this encounter
--- OUTSIDE RECORDS SUMMARY | 2024-02-05 17:49 | XMS_ITS | Encounter Summary ---
Author Organization [facility] Address [address] [place] [address] Care Team Providers Care Sap Plant Maintenance Consultant Name Role Phone Unavailable Primary Care Provider Unavailabl e Encounter Details Date Type Department Care Team (Late st Contact Info) Description 03/17/2009 Orders Only [facility] Laboratory Services - [facility] ([facility]) [address] [place], [place] [id number] Gregg Troy, JAMMIE [address] [place] [address] Social History Tobacco Use Types [...] ? ROPER, NICHOLE ? Accession #: ? [id number] ? : ? 1960 (Age: 48) ??F [...] ESTEFANIA FITCH 03/17/2009 03/18/2009 us Gregg Troy TAX ASSOCIATE ATTORNEY PATHOLOGY ORDERABLES Final R esult ESTEF[facility] [address] [place] [address] documented in this encounter Visit Diagnoses Not on filedocumented in this encounter
--- OUTSIDE RECORDS SUMMARY | 2024-02-05 17:49 | XMS_ITS | Encounter Summary ---
Author Organization [facility] Address [address] [place] [address] Care Team Providers Care Category Director Name Role Phone Unavailable Primary Care Provider Unavailabl e Encounter Details Date Type Department Care Team (Late st Contact Info) Description 03/06/2007 Results Only [facility] - [facility] conversion [address] [place] [address] Gregg Troy, JAMMIE [address] [place] [address] Social History Tobacco Use Types [...] ? NICHOLE ROPER ? Accession #: ? [id number] : ? 1960 (Age: 46) ??F ?Collect Date: ? 03/06/2007 Location: ? [facility] ? Receive Date: ? 03/08/2007 Provider: ?GREGG TROY ACID BLEACHER Copy to: ? Specimen/Source: ?ThinPrep Pap Test, Cervix/Endocervix, processed on [employer] ThinPrep Imaging System, with manual evaluation Last [...] ESTEFANIA FITCH 03/06/2007 03/08/2007 us Gregg Troy ACID BLEACHER PATHOLOGY ORDERABLES Final R esult [facility] [address] [place] [address] documented in this encounter Visit Diagnoses Not on filedocumented in this encounter
--- OUTSIDE RECORDS SUMMARY | 2024-02-05 17:49 | XMS_ITS | Encounter Summary ---
Author Organization [facility] Address [address] [place] [address] Care Team Providers Care Commodity Industry Analyst Name Role Phone Unavailable Primary Care Provider Unavailabl e Encounter Details Date Type Department Care Team (Late st Contact Info) Description 03/09/1999 Results Only [facility] [place] conversion [address] [place] [address] Noni Valdivia, [facility] [address] [place] [address] [place] [address] Social History Tobacco Use Types [...] ? NICHOLE ROPER ? Accession #: ? [id number] : ? 1960 (Age: 38) ??F ?Collect Date: ? 03/09/1999 Location: ?Receive Date: ? 03/09/1999 Provider: ?NONI AMPARO LABORER MARINE TERMINAL Copy to: ?NONI AMPARO LABORER MARINE TERMINAL ? Specimen/Source: ?License Examiner ThinPrep Last Menstrual Period: ? GYNECOLOGIC ??CYTOPATHOLOGY ??REPORT Name: NICHOLE MERCADO A ? [facility] : 1960 ?? 38Y F ?Client ID: [id number] SS#: ? Clinician: AMPARO LABORER MARINE TERMINAL, NONI ?? Location: [facility] ??Copy to: ?? Specimen: ?License Examiner ThinPrep ? Source: Cervix/Endocervix ?Collected: 03/05/99 ? [...] [place], [place](ASCP) ? Report Date: ?? 03/09/1999 [employer] Archived Tests - Final Diagnosis Text Field: Clinical History : ;Pt reports abn pap 3 years ago, we have no results. ? Document reviewed and electronically signed by: ? Conversion ? Report Date: ??03/09/1999 00:00 End of Report [facility] 03/09/1999 14:0 9 EST 03/09/1999 14:10 EST us Noni Valdivia LABORER MARINE TERMINAL PATHOLOGY ORDERABLES Final R esult [facility] [address] [place] [address] documented in this encounter Visit Diagnoses Not on filedocumented in this encounter
--- OUTSIDE RECORDS SUMMARY | 2024-02-05 17:49 | XMS_ITS | Encounter Summary ---
Author Organization [facility] Address [address] [place] [address] Care Team Providers Care Implementation Advisor Name Role Phone Jadyn Ortega MD Primary Care Provider [phone] Encounter Details Date Type Department Care Team (Late st Contact Info) Description 09/04/2022 Lab Requisition [facility] Pathology & Laboratory Medicine - [address] [address] Outr Resulting Lab, Provider Social History Tobacco [...] Lyme Ab Negative Negative 09/05/2022 10:18 EDT [facility] Blood VENOUS BLOOD / Unknown 09/04/2022 8:50 EDT 09/04/2022 15:40 EDT us Provider Outr Resulting Lab IMMUNOLOGY AND SEROL OGY ORDERABLES Final Result [facility] [address] [place] [address] documented in this encounter Visit Diagnoses Not on filedocumented in this encounter Care Teams Implementation Advisor Relationship Specialty Start Date End Date Jadyn Ortega MD PCP - General 09/13/12 documented as of this encounter
--- OUTSIDE RECORDS SUMMARY | 2024-02-05 17:49 | XMS_ITS | Encounter Summary ---
Author Organization [facility] Address [address] [place] [address] Care Team Providers Care Nnp Name Role Phone Unavailable Primary Care Provider Unavailabl e Encounter Details Date Type Department Care Team (Late st Contact Info) Description 07/17/[address] [facility] conversion [address] [place] [address] Darryn Hare MD [address] [place] [address] Social History Tobacco Use Types Packs/Day Years [...] ? NICHOLE ROPER ? Accession #: ? [id number] ? : ? 1960 (Age: 42) ??F [...] reveal soft, homogeneous and yellow cut surfaces. ??Staff Combat Information Center Officer sections are submitted as (A1) to (A3). ??(Dr. Lopez)/[facility] End of Report ESTEF[facility]IA [facility] 07/17/2003 07/18/2003 14: 51 EDT us Darryn Hare MD PATHOLOGY ORDERABLES Final Result [facility] [address] [place] [address] documented in this encounter Visit Diagnoses Not on filedocumented in this encounter
--- OUTSIDE RECORDS SUMMARY | 2024-02-05 17:49 | XMS_ITS | Encounter Summary ---
[place] [address] Care Team Providers Care Repairer Welding Systems And Equipment Name Role Phone Lilly Marcelino MD Primary Care Provider [phone] Encounter Details Date Type Department Care Team (Late st Contact Info) Description 04/28/2010 [place] [id number] Lilly Marcelino MD [facility] [address] [facility] [place] [address] [place] [address] Social History Tobacco Use Types Packs/Day Years [...] on filedocumented in this encounter Care Teams Repairer Welding Systems And Equipment Relationship Specialty Start Date End Date Lilly Marcelino MD [facility] [address] [facility] [place] [address] [place] [address] PCP - General 12/29/09 09/06/21 documented as of this encounter
--- OUTSIDE RECORDS SUMMARY | 2024-02-05 17:49 | XMS_ITS | Encounter Summary ---
[place] [address] Care Team Providers Care Containers Sales Representative Name Role Phone Lilly Marcelino MD Primary Care Provider [phone] Encounter Details Date Type Department Care Team (Latest Contact Info) Description 09/18/2018 8:16 AM EDT - 09/18/2018 11:59 PM EDT Hospital Encounter Mammography/[place] [address] Lilly Marcelino MD [facility] [address] [facility] [address] [place] [address] Encounter for screening mammogram for breast cancer [...] cancer documented in this encounter Care Teams Containers Sales Representative Relationship Specialty Start Date End Date Lilly Marcelino MD [facility] [address] [place] [address] PCP - General 12/29/09 09/06/21 documented as of this encounter
--- OUTSIDE RECORDS SUMMARY | 2024-02-05 17:49 | XMS_ITS | Encounter Summary ---
[place] [address] Care Team Providers Care Obstetrical Anesthesiologist Name Role Phone Lilly Marcelino MD Primary Care Provider [phone] Encounter Details Date Type Department Care Team (Latest Contact Info) Description 05/21/2013 9:54 AM EDT - 05/21/2013 11:59 PM EDT Hospital En[place] [address] CLINIC, Lilly Morton MD [facility] [address] [place] [phone] Discharge Disposition: Home Social History Tobacco Use [...] to this patient by the breast imaging [place]. Lilly Marcelino MD IMG MAMMO ORDERABLES documented in this encounter Visit Diagnoses Not on filedocumented in this encounter Care Teams Obstetrical Anesthesiologist Relationship Specialty Start Date End Date Lilly Marcelino MD [facility] [address] [place] [address] PCP - General 12/29/09 09/06/21 documented as of this encounter
--- OUTSIDE RECORDS SUMMARY | 2024-02-05 17:49 | XMS_ITS | Encounter Summary ---
[place] [address] Care Team Providers Care Mail Rider Name Role Phone Lilly Marcelino MD Primary Care Provider Encounter Details Date Type Department Care Team (Latest Contact Info) Description 04/21/2011 11:06 AM EDT - 04/21/2011 11:59 PM EDT Hospital En[place] [address] CLINIC, Lilly Morton MD [facility] [address] [place] [phone] Discharge Disposition: Home Social History Tobacco Use [...] on filedocumented in this encounter Care Teams Mail Rider Relationship Specialty Start Date End Date Lilly Marcelino MD [address] [place] [address] PCP - General 12/29/09 09/06/21 documented as of this encounter
--- OUTSIDE RECORDS SUMMARY | 2024-02-05 17:49 | XMS_ITS | Clinical Summary ---
Author Organization [facility] [place] [address] Care Team Providers Care Drilling Contractor Name Role Phone Heena Koo APRN Primary Care Provider [phone] Family History Medical History Relation Comments Breast [...] Recently Relevant to Health Maintenance Care Teams Drilling Contractor Relationship Specialty Start Date End Date Heena Koo APRN [facility] [place] [address] PCP - General Family Medicine 09/07/21
--- OUTSIDE RECORDS SUMMARY | 2024-02-05 17:49 | XMS_ITS | Clinical Summary ---
Author Organization [facility] Address [address] [place] [address] Care Team Providers Care Social Media Content Specialist Name Role Phone Jadyn Ortega MD Primary Care Provider [phone] Social History Tobacco Use Types Packs/Day Years Used Date Smoking Tobacco: Never Assessed Comments Unknown Sex and Gender Information Value Date Recorded Sex Assigned at Not on file Legal Sex Female 18:23 EST Gender Identity Not on file Sexual Orientation Not on file Plan of Treatment Health Maintenance Due Date Last Done Comments Hepatitis C Screen 1960 COVID-19 Vaccine (2023-25 season) 2023 RSV Immunization ( o r 60+ Years) (1 - 1-dose 75+ series) 2036 Insurance P Care Teams Social Media Content Specialist Relationship Specialty Start Date End Date Jadyn Ortega MD PCP - General 09/13/12
--- OUTSIDE RECORDS SUMMARY | 2024-02-05 17:49 | XMS_ITS | Encounter Summary ---
Author Organization [facility] Address [address] [place] [address] Care Team Providers Care Ui Software Developer Name Role Phone Unavailable Primary Care Provider Unavailabl e Encounter Details Date Type Department Care Team (Late st Contact Info) Description 01/20/2006 Results Only [facility] conversion [address] [place] [address] Gregg Troy, JAMMIE [address] [place] [address] Social History Tobacco Use Types [...] ? NICHOLE ROPER ? Accession #: ? [id number] : ? 1960 (Age: 45) ??F ?Collect Date: ? 01/20/2006 Location: ? [facility] ? Receive Date: ? 01/24/2006 Provider: ?GREGG TROY SENIOR STATISTICAL PROGRAMMER Copy to: ? Specimen/Source: ?ThinPrep Pap Test, Cervix/Endocervix, processed on [employer] ThinPrep Imaging System, with manual evaluation Last [...] ORDERABLES Final R esult ESTEFANIA FITCH [address] [place] [address] documented in this encounter Visit Diagnoses Not on filedocumented in this encounter
--- OUTSIDE RECORDS SUMMARY | 2024-02-05 17:49 | XMS_ITS | Encounter Summary ---
Author Organization [facility] Address [address] [place] [address] Care Team Providers Care Licensed Practical Nurse Name Role Phone Jadyn Ortega MD Primary Care Provider [phone] Encounter Details Date Type Department Care Team (Late st Contact Info) Description 07/10/2023 Lab Requisition [facility] Pathology & Laboratory Medicine - [address] [address] Suresh Machado MD [address] [place] [address], [address] [place], [place] [id number] Encounter for screening for malignant neoplasm of [...] management options, if applicable. 07/12/2023 17:05 EDT [facility] Final Diagnosis A. COLON, 75 CMS, POLYP, BIOPSY: - Colonic mucosa with no significant diagnostic abnormalities. - No definite polyp identified. - Benign lymphoid aggregate noted. - Deeper sections x3 examined. B. COLON, 70 CMS, POLYP, BIOPSY: - Sessile serrated adenoma. - Deeper sections x3 examined. C. COLON, 30 CMS, POLYPS X2, BIOPSY: - Hyperplastic polyps. 07/12/2023 17:05 [facility] Attestation By the signature below, the attending physician certifies that they have 1) personally conducted a gross and/or microscopic examination of the described specimen(s), and/or personally interpreted the results of laboratory testing of the described specimen(s), and 2) personally rendered or confirmed the above diagnosis. 07/12/2023 17:05 [facility] at 1705 Clinical History Colorectal cancer screening 07/12/2023 17:05 [facility] Gross Description A. [...] C1. Kenzie Bolanos 07/11/2023 9:31 07/12/2023 17:05 [facility] Performing Lab [facility] 07/12/2023 17:05 [facility] Scanned Images 07/12/2023 17:05 [facility] Tissue POLYP OF COLON / Unknown 07/10/2023 13:31 EDT 07/10/2023 22:57 EDT Tissue specimen (specimen) POLYP OF COLON / Unknown 07/10/2023 13:31 EDT 07/10/2023 22:57 EDT Tissue specimen (specimen) POLYP OF COLON / Unknown 07/10/2023 13:31 EDT 07/10/2023 22:57 EDT us Suresh Machado MD PATHOLOGY ORDERABLES Final Resu lt [facility] [address] [place] [address] documented in this encounter Visit Diagnoses Diagnosis Encounter for screening for malignant neoplasm of colon Special screening for malignant neoplasms, colon documented in this encounter Care Teams Licensed Practical Nurse Relationship Specialty Start Date End Date Jadyn Ortega MD PCP - General 09/13/12 documented as of this encounter
--- OUTSIDE RECORDS SUMMARY | 2024-02-05 17:49 | XMS_ITS | Encounter Summary ---
Author Organization [facility] Address [address] [place] [address] Care Team Providers Care Canal Superintendent Name Role Phone Unavailable Primary Care Provider Unavailabl e Encounter Details Date Type Department Care Team (Late st Contact Info) Description 03/11/2008 Before PRISM Converted Visit ([facility]) [facility] conversion [address] [place] [address] Gregg Troy, JAMMIE [address] [place] [address] Social History Tobacco Use Types [...] ? ROPER, NICHOLE ? Accession #: ? [id number] ? : ? 1960 (Age: 47) ??F [...] ESTEFANIA FITCH 03/11/2008 03/13/2008 us Gregg Troy PRODUCTION DESIGNER PATHOLOGY ORDERABLES Final R esult EST[facility]IA [facility] [address] [place] [address] documented in this encounter Visit Diagnoses Not on filedocumented in this encounter
--- OUTSIDE RECORDS SUMMARY | 2024-02-05 17:49 | XMS_ITS | Encounter Summary ---
Author Organization [facility] Address [address] [place] [address] Care Team Providers Care Passenger Service Representative Name Role Phone Unavailable Primary Care Provider Unavailabl e Encounter Details Date Type Department Care Team (Late st Contact Info) Description 06/07/2011 Results Only [facility] Laboratory Services - [facility] ([facility]) [address] [place], [place] [address] Gregg Kamara, JAMMIE [address] [place] [address] Social History Tobacco Use Types [...] ? JACQUELIN NICHOLE ? Accession #: ? [id number] ? : ? 1960 (Age: 50) ??F ?Collect Date: ? 06/07/2011 ? Location: ? [facility] ? Receive Date: ? 06/10/2011 ? Provider: GREGG KAMARA GROUP MARKETING VP Copy to: ? Final Report SPECIMEN ADEQUACY [...] types 16,18,31,33,35, 39,45,51,52,56,58, 59,66, and 68 by sectionizer mediated amplification. Comments Document reviewed and electronically [...] ORDERABLES Final R esult Performing Organization Address City/State/[facility] Co de Phone Number [facility] [address] [place] [address] documented in this encounter Visit Diagnoses Not on filedocumented in this encounter
--- OUTSIDE RECORDS SUMMARY | 2024-02-05 17:49 | XMS_ITS | Encounter Summary ---
[place] [address] Care Team Providers Care Physician Assistant Name Role Phone Lilly Marcelino MD Primary Care Provider [phone] Encounter Details Date Type Department Care Team (Late st Contact Info) Description 04/28/2010 10:45 AM EDT Office Visit Lab [address] [id number] Social History Tobacco Use Types Packs/Day Years Used Date Smoking Tobacco: Never Assessed Sex and Gender Information Value Date Recorded Sex Assigned at Not on file Gender Identity Not on file Sexual Orientation Not on file documented as of this encounter Plan of Treatment Not on file documented as of this encounter Visit Diagnoses Not on filedocumented in this encounter Care Teams Physician Assistant Relationship Specialty Start Date End Date Lilly Marcelino MD [address] [place] [address] PCP - General 12/29/09 09/06/21 documented as of this encounter
--- OUTSIDE RECORDS SUMMARY | 2024-02-05 17:49 | XMS_ITS | Encounter Summary ---
[place] [address] Care Team Providers Care Screening Nurse Name Role Phone Lilly Marcelino MD Primary Care Provider [phone] Encounter Details Date Type Department Care Team (Latest Contact Info) Description 04/25/2012 10:18 AM EDT - 04/25/2012 11:59 PM EDT Hospital [place] [address] CLINIC, Lilly Morton MD [facility] [address] [place] [phone] Discharge Disposition: Home Social History Tobacco Use [...] on filedocumented in this encounter Care Teams Screening Nurse Relationship Specialty Start Date End Date Lilly Marcelino MD [address] [place] [address] PCP - General 12/29/09 09/06/21 documented as of this encounter
--- OUTSIDE RECORDS SUMMARY | 2024-02-05 17:49 | XMS_ITS | Encounter Summary ---
Author Organization [facility] [place] [address] Care Team Providers Care Mangle Operator Garments Name Role Phone Lilly Marcelino MD Primary Care Provider [phone] Encounter Details Date Type Department Care Team (Latest Contact Info) Description 08/26/2016 8:34 AM EDT - 08/26/2016 11:59 PM EDT Hospital [place] [address] Lili Oglesby, SATISH [address] [address] Visit for screening mammogram Discharge Disposition: Home [...] No mammographic evidence of malignancy. RECOMMENDATION: The [place] [employer] and The Society of [...] mammogram documented in this encounter Care Teams Mangle Operator Garments Relationship Specialty Start Date End Date Lilly Marcelino MD [address] [place] [address] PCP - General 12/29/09 09/06/21 documented as of this encounter
--- OUTSIDE RECORDS SUMMARY | 2024-02-05 17:49 | XMS_ITS | Referral Summary ---
Author Organization [facility] Address [address] [place] [address] Care Team Providers Care Mechanical Research Engineer Name Role Phone Jadyn Ortega MD Primary Care Provider [phone] Social History Tobacco Use Types Packs/Day Years Used Date Smoking Tobacco: Never Assessed Comments Unknown Sex and Gender Information Value Date Recorded Sex Assigned at Not on file Legal Sex Female 18:23 EST Gender Identity Not on file Sexual Orientation Not on file Plan of Treatment Not on file Insurance [facility] Care Teams Mechanical Research Engineer Relationship Specialty Start Date End Date Jadyn Ortega MD PCP - General 09/13/12
--- OUTSIDE RECORDS SUMMARY | 2024-02-05 17:49 | XMS_ITS | Encounter Summary ---
Author Organization [facility] [place] [address] Care Team Providers Care Skein Winder Name Role Phone Lilly Marcelino MD Primary Care Provider [phone] Encounter Details Date Type Department Care Team (Late st Contact Info) Description 04/28/2010 10:23 AM EDT - 04/28/2010 11:59 PM EDT Hospital Encounter [facility] Lilly Marcelino MD [address] [place] [address] Discharge Disposition: Home Social History Tobacco Use [...] on filedocumented in this encounter Care Teams Skein Winder Relationship Specialty Start Date End Date Lilly Marcelino MD [address] [place] [address] PCP - General 12/29/09 09/06/21 documented as of this encounter
--- OUTSIDE RECORDS SUMMARY | 2024-02-05 17:49 | XMS_ITS | Encounter Summary ---
[place] [address] Care Team Providers Care Router Tender Name Role Phone Lilly Marcelino MD Primary Care Provider [phone] Encounter Details Date Type Department Care Team (Latest Contact Info) Description 05/20/2014 9:48 AM EDT - 05/20/2014 11:59 PM EDT Hospital [place] [address] CLINIC, Lilly Morton MD [facility] [address] [place] [address] [phone] Discharge Disposition: Home Social History Tobacco Use [...] to this patient by the breast imaging naturita. Ely Beltre APRN IMG MAMMO ORDERABL ES documented in this encounter Visit Diagnoses Not on filedocumented in this encounter Care Teams Router Tender Relationship Specialty Start Date End Date Lilly Marcelino MD [address] [place] [address] PCP - General 12/29/09 09/06/21 documented as of this encounter
--- OUTSIDE RECORDS SUMMARY | 2024-02-05 17:49 | XMS_ITS | Encounter Summary ---
Author Organization [facility] Address [address] [place] [address] Care Team Providers Care Florist Name Role Phone Jadyn Ortega MD Primary Care Provider [phone] Encounter Details Date Type Department Care Team (Late st Contact Info) Description 11/01/2018 Results Only [facility]- [facility]ISM [phone] America Reynoso, [address] [place] [id number] Social History Tobacco Use Types Packs/Day Years [...] ? NICHOLE ROPER ? Accession #: ? [id number] ? : ? 1960 (Age: 57) ??F [...] Z11.51 FAX - Request for Fax report: [phone] Specimen/Source: ??Pap Test, Cervix, ThinPrep Imaging System [...] types 16,18,31,33,35, 39,45,51,52,56,58, 59,66, and 68 by cyber engineer mediated amplification. Comments Document reviewed and electronically signed by: ? System Interface ? Report date: 11/06/2018 By the signature above, the attending physician certifies that he/she has personally conducted a gross and/or microscopic examination of the described specimens and rendered or confirmed the above diagnosis. End of Report [facility] 11/01/2018 11/02/2018 us America Bolanos DNP PATHOLOGY ORDERABLES Concepción serna Result [facility] [address] [place] [address] documented in this encounter Visit Diagnoses Not on filedocumented in this encounter Care Teams Florist Relationship Specialty Start Date End Date Jadyn Ortega MD PCP - General 09/13/12 documented as of this encounter
--- OUTSIDE RECORDS SUMMARY | 2024-02-05 17:49 | XMS_ITS | Encounter Summary ---
Author Organization [facility] Address [address] [place] [address] Care Team Providers Care Upsetter Helper Name Role Phone Unavailable Primary Care Provider Unavailabl e Encounter Details Date Type Department Care Team (Late st Contact Info) Description 09/11/2012 Results Only [facility] Services - [facility] ([facility]) [address] [place], [place] [address] Albert Hare, DO [address] [place] [address] Social History Tobacco Use Types [...] ? NICHOLE ROPER ? Accession #: ? [id number] ? : ? 1960 (Age: 51) ??F ? Collect Date: ? 09/11/2012 ? Location: ? [facility] ? Receive Date: ? 09/12/2012 ? Provider: ALBERT HARE DO Copy to: UTE MCCAULEY MD ? Final Pathologic Diagnosis: COLON, POLYP, 40 CM, BIOPSY: - ??Hyperplastic polyp. ??See comment. Comment: ? Deeper levels have been examined. After School Program Teacher sections of this case were reviewed at [...] ORDERABLES Fi nal Result [facility] [address] [place] [address] documented in this encounter Visit Diagnoses Not on filedocumented in this encounter
--- OUTSIDE RECORDS SUMMARY | 2024-02-05 17:49 | XMS_ITS | Encounter Summary ---
[place] [address] Care Team Providers Care Software Engineering Associate Manager Name Role Phone Lilly Marcelino MD Primary Care Provider [phone] Encounter Details Date Type Department Care Team (Latest Contact Info) Description 08/25/2015 7:51 AM EDT - 08/25/2015 11:59 PM EDT Hospital Encounter [place] [address] Lilly Marcelino MD [facility] [place] [facility] [address] [place], [place] [id number] Encounter for screening mammogram for malignant neoplasm [...] No mammographic evidence of malignancy. RECOMMENDATION: [employer] and The Society of [...] mammogram documented in this encounter Care Teams Software Engineering Associate Manager Relationship Specialty Start Date End Date Lilly Marcelino MD [address] [place] [address] [address] [place] [address] PCP - General 12/29/09 09/06/21 documented as of this encounter
--- OUTSIDE RECORDS SUMMARY | 2024-02-05 17:49 | XMS_ITS | Encounter Summary ---
Author Organization [facility] [place] [address] Care Team Providers Care Assistant Director Of Residence Life Name Role Phone Heena Koo MILITARY AIRCRAFT DESIGNER Primary Care Provider [phone] Encounter Details Date Type Department Care Team (Latest Contact Info) Description 09/27/2021 12:29 PM EDT - 09/27/2021 11:59 PM EDT Hospital Encounter Mammography[place] [address] Heena Koo, [address] [place] [address] Screening mammogram for breast cancer Discharge Disposition: [...] cancer documented in this encounter Care Teams Assistant Director Of Residence Life Relationship Specialty Start Date End Date Heena Koo [place] [address] [place] [address] PCP - General Family Medicine 09/07/21 documented as of this encounter
--- OUTSIDE RECORDS SUMMARY | 2024-02-05 17:49 | XMS_ITS | Encounter Summary ---
Author Organization [facility] Address [address] [place] [address] Care Team Providers Care Licensed Optician Name Role Phone Jadyn Ortega MD Primary Care Provider [phone] Encounter Details Date Type Department Care Team (Late st Contact Info) Description 09/29/2015 Results Only [facility]- [facility] [phone] Lili Beverly APRN [address] [address] [address] [address] [place], [place] [id number] Social History Tobacco Use Types Packs/Day Years [...] ? NICHOLE ROPER ? Accession #: ? [id number] ? : ? 1960 (Age: 54) ??F ?Collect Date: ? 09/29/2015 ? Location: ? [facility] ? Receive Date: ? 09/30/2015 ? Provider: LILI BEVERLY ENGINE LATHE SET UP OPERATOR TOOL Copy to: ? Final Report SPECIMEN ADEQUACY [...] 33,35,39,45,51,52, 56,58,59,66, and 68 is detected by bead wire taper mediated amplification. High and intermediate risk HPV [...] confirmed the above diagnosis. End of Report [facility] 09/29/2015 09/30/2015 us Lili Beverly ENGINE LATHE SET UP OPERATOR TOOL PATHOLOGY ORDERABLES Final Re sult [facility] [address] [place] [address] documented in this encounter Visit Diagnoses Not on filedocumented in this encounter Care Teams Licensed Optician Relationship Specialty Start Date End Date Jadyn Ortega MD PCP - General 09/13/12 documented as of this encounter
--- OUTSIDE RECORDS SUMMARY | 2024-02-05 17:49 | XMS_ITS | Encounter Summary ---
Author Organization [facility] Address [address] [place] [address] Care Team Providers Care Recruiting Intern Name Role Phone Unavailable Primary Care Provider Unavailabl e Encounter Details Date Type Department Care Team (Late st Contact Info) Description 12/30/2003 Results Only [facility] - [facility] conversion [address] [place] [address] Lilly Mccauley MD [address] [address] Social History Tobacco Use Types [...] ? NICHOLE ROPER ? Accession #: ? [id number] : ? 1960 (Age: 43) ??F ?Collect [...] Report Date: ??01/09/2004 09:28 End of Report [facility] 12/30/2003 01/02/2004 us Lilly Mccauley MD PATHOLOGY ORDERABLES Final Resul t [facility] [address] [place] [address] documented in this encounter Visit Diagnoses Not on filedocumented in this encounter
--- OUTSIDE RECORDS SUMMARY | 2024-02-05 17:49 | XMS_ITS | Encounter Summary ---
Author Organization [facility] Address [address] [place] [address] Care Team Providers Care Bone Cooking Operator Name Role Phone Unavailable Primary Care Provider Unavailabl e Encounter Details Date Type Department Care Team (Late st Contact Info) Description 01/03/2005 Results Only [facility] - Maple conversion [address] [place] [address] Lilly Mccauley MD [address] [address] Social History Tobacco Use Types [...] ? NICHOLE ROPER ? Accession #: ? [id number] : ? 1960 (Age: 44) ??F ?Collect Date: ? 01/03/2005 Location: ? [facility] ? Receive Date: ? 01/04/2005 Provider: ?LILLY MCCAULEY MD Copy to: ? Specimen/Source: ?ThinPrep Pap Test, Cervix/Endocervix, processed on [employer] ThinPrep Imaging System, with manual evaluation Last [...] ORDERABLES Final Resul t [facility] [address] [place] [address] documented in this encounter Visit Diagnoses Not on filedocumented in this encounter
--- OUTSIDE RECORDS SUMMARY | 2024-02-05 17:49 | XMS_ITS | Encounter Summary ---
Author Organization [facility] Address [address] [place] [address] Care Team Providers Care Display Fabricator Name Role Phone Unavailable Primary Care Provider Unavailabl e Encounter Details Date Type Department Care Team (Late st Contact Info) Description 07/23/2012 Results Only [facility] Services - [facility] ([facility]) [address] [place], [place] [address] Gregg Kamara, JAMMIE [address] [place] [address] Social History Tobacco Use Types [...] ? JACQUELIN NICHOLE ? Accession #: ? [id number] : ? 1960 (Age: 51) ??F ?Collect Date: ? 07/23/2012 Location: ? [facility] ? Receive Date: ? 07/25/2012 Provider: ?GREGG KAMARA SIGN LANGUAGE INTERPRETER Copy to: ? Specimen/Source: ?Pap Test, Cervix/Endocervix, [...] [facility] 07/23/2012 07/25/2012 us Gregg Kamara SIGN LANGUAGE INTERPRETER PATHOLOGY ORDERABLES Final R esult [facility] [address] [place] [address] documented in this encounter Visit Diagnoses Not on filedocumented in this encounter
[2024-02-06 12:53] LABS: Chlamydia Result Negative (Negative); GC Result Negative (Negative)
== END 2024-02-05 17:48 | disposition home or self-care (01) ==
LOC: NCHCN 17:47
PROVIDERS: PCP Nurse Practitioner Family; Visit Provider Family Medicine
DX: Z12.4 Encounter for screening for malignant neoplasm of cervix (principal); Z11.3 Encounter for screening for infections with a predominantly sexual mode of transmission; R87.810 Cervical high risk human papillomavirus (HPV) DNA test positive
CPT/HCPCS: 87491; 87591; 88142; 87624